=== PATIENT | female | born 1960 | race Caucasian/White ===

== ENCOUNTER → 2017-02-15 | Day surgery (SDC) | payer OTHER ==
[2017-02-08 12:41] VITALS: Ht 160 cm; Wt 135.4 kg
[~2017-02-15] VITALS: Ht 160 cm; Wt 135.4 kg
[~2017-02-15] MED LIST: ALBU18002 INH; ASPCH81X PO; ATOR-54 PO; B-COTAB18 PO; BNC20 PO; CHOL20009 PO; GLC/500 PO; INSDGI SC; KETAMINE HCL INJ 50 MG/ML 10 ML VIAL ONE; LEVO200T6 PO; LIRA18IN SC; MIDAZOLAM HCL 1 MG/ML 2ML VIAL ONE; NVLGIPEN SC; OXGN; PROPOFOL IV EMULSION 10 MG/ML 20 ML VIAL IV ONE; SODIUM CHLORIDE 0.9% 500ML 500 ML IV ONE
--- NOTE | 2017-02-15 10:24 | Endo History and Physical ---
History & Physical Date of Service: Feb 15, 2017. Chief Complaint: Screening Referring Physician: Roopa History of Present Illness Surveillance, polyps on prior exam. Past Medical History Diabetes, Arthritis, Reflux, High Cholesterol, Sleep Apnea, COPD, Thyroid Disease Past Surgical History Hx Cardiac Surgery: No Hx Internal Defibrillator: No Hx Pacemaker: No Hx Abdominal Surgery: Yes (TUBAL LIGATION, PARTIAL HYSTER) Hx of Implantable Prosthesis: No Hx Post-Op Nausea and Vomiting: No Hx Cancer Surgery: No Hx Thoracic Surgery: No Hx Orthopedic: No Hx Urinary Tract Surgery: No Family History Colon CA Social History Smoking Status: Current Every Day Smoker Hx Substance Use: No Hx Alcohol Use: No Allergies Coded Allergies: Cephalosporins (Verified Allergy, Mild, TROUBLE BREATHING, 02/08/17) Penicillins (Verified Allergy, Mild, TROUBLE BREATHING, 02/08/17) Amoxicillin (Verified Allergy, Unknown, HIVES/SWELLING, 02/08/17) Erythromycin (Verified Allergy, Unknown, TROUBLE BREATHING, 02/08/17) Adhesives (Verified Adverse Reaction, Unknown, WELTS AND BURNING, 02/08/17 ) Meloxicam (Verified Adverse Reaction, Unknown, STOMACH UPSET, 02/08/17) Current Medications Reported Home Medications Medications Dose Route/Sig Max Daily Dose Days Date Category Dose Instructions Aspirin Chewable (Aspirin) 81 Mg Chew 81 Mg PO HS 02/08/17 Reported Vitamin B Complex (B-Complex Vitamins) 1 Tab Tab 1 Tab PO QAM 02/08/17 Reported Vitamin D (Cholecalciferol) 2,000 Unit Tab 1 Tab PO QAM 02/08/17 Reported Lantus (Insulin Glargine) 100 Unit/Ml Inj 68 Units SC QPM 02/08/17 Reported Proair Respiclick (Albuterol Sulfate) 108 Mcg/Act Aer 1 Puff INH QID 02/08/17 Reported Novolog Flexpen (Insulin Aspart) 100 Units/Ml Inj 1 Dose SC QID 02/08/17 Reported PER SLIDING SCALE Glucophage (Metformin Hcl) 500 Mg Tab 4 Tab PO QAM 02/08/17 Reported Benicar (Olmesartan Medoxomil) 20 Mg Tab 10 Mg PO QAM 02/08/17 Reported Victoza (Liraglutide) 18 Mg/3 Ml Inj 1.8 Mg SC QAM 02/08/17 Reported Lipitor (Atorvastatin) 20 Mg Tab 20 Mg PO HS 05/19/14 Reported Levothyroxine Sodium 200 Mcg Tab 200 Mcg PO QAM 05/19/14 Reported Oxygen Gas 2 Liters NA UD 02/24/11 Reported when sleeping Vital Signs Weight (Kilograms): 135.45 Height (Feet): 5 Height (Inches): 3 Date Time Temp Pulse Resp B/P (MAP) Pulse Ox O2 Delivery O2 Flow Rate FiO2 02/15/17 09:53 36.7 80 20 121/66 (84) 94 Room Air Physical Exam General Appearance: no apparent distress Respiratory/Chest: Auscultation: breath sounds normal Cardiovascular: Heart Auscultation: RRR Abdomen: Inspection & Palpation: soft Assessment and Plan H/o polyps - cscopy
--- NOTE | 2017-02-15 11:00 | Discharge Instructions ---
Endoscopy Patient Instructions Date / Procedure(s) Performed Feb 15, 2017. Colonoscopy Allergy Information Coded Allergies: Cephalosporins (Verified Allergy, Mild, TROUBLE BREATHING, 02/08/17) Penicillins (Verified Allergy, Mild, TROUBLE BREATHING, 02/08/17) Amoxicillin (Verified Allergy, Unknown, HIVES/SWELLING, 02/08/17) Erythromycin (Verified Allergy, Unknown, TROUBLE BREATHING, 02/08/17) Adhesives (Verified Adverse Reaction, Unknown, WELTS AND BURNING, 02/08/17 ) Meloxicam (Verified Adverse Reaction, Unknown, STOMACH UPSET, 02/08/17) Discharge Date / Findings Feb 15, 2017. Unable to complete colonoscopy due to poor prep Medication Instructions Stopped Medication(s): Metformin, insulin, ASA Provider Instructions Activity Restrictions - No exercising or heavy lifting for 24 hours. - Do not drink alcohol the day of the procedure. - Do not drive a car or operate machinery until the day after the procedure. - Do not make any important decisions or sign important papers in 24 hours after the procedure. Following Day: - Return to full activity which may include returning to work/school. Diet Start your diet with liquids and light foods (jello, soup, juice, toast). Then eat your usual diet if not nauseated. Treatment For Common After Affects For mild abdominal pain, bloating, or excessive gas: - Rest - Eat lightly - Lie on right side Follow-Up Information Follow-up with Roopa as scheduled Anesthesia Information What You Should Know You have had a procedure that required some medicine to reduce anxiety and discomfort. This treatment is called moderate sedation. After receiving the treatment, you may be sleepy, but you will be able to breathe on your own. The effects of the treatment may last for several hours. Follow these instructions along with Activity/Diet recommendations noted above: * Do NOT do anything where dizziness or clumsiness would be dangerous. * Rest quietly at home today, then you can be up and about tomorrow. * Have a responsible person stay with you the rest of today. * You may have had an I.V. today. If so, you may take the dressing off later today. Recommendations Call your doctor if: * Trouble breathing * Continuous vomiting for more than 24 hours * Temperature above 101 degrees * Severe abdominal pain or bloating * Pain not relieved by pain medicine ordered * There is increased drainage or redness from any incision * A large amount of rectal bleeding greater than 2-3 tablespoons. (If you had a polyp/s removed or have hemorrhoids, a small amount of blood - from the rectum is to be expected.) * You have any unanswered questions or concerns. IN THE EVENT OF A SERIOUS EMERGENCY, GO TO THE NEAREST EMERGENCY ROOM Your discharge instructions were prepared by provider Mary Samayoa. Patient Instructions Signature Page Mariel Palmer Patient (or Guardian) Signature/Date: I have read and understand the instructions given to me by my caregivers. Caregiver/RN/Doctor Signature/Date: The above-named patient and/or guardian has received patient instructions on this date. + Original Patient Signature Page (only) stays with chart. Please make copy for patient.
[2017-02-15 11:16] VITALS: BP 125/74; PULSE 71; O2SAT 93
--- NOTE | 2017-02-15 12:05 | Anesthesiology Progress Note ---
Anesthesia Post Op Note Date & Time Feb 15, 2017 at 12:05 Vital Signs Pain Intensity: 0 Vital Signs Past 12 Hours Date Time Temp Pulse Resp B/P (MAP) Pulse Ox O2 Delivery O2 Flow Rate FiO2 02/15/17 11:16 71 20 125/74 (91) 93 Room Air 02/15/17 11:01 76 20 119/74 (89) 93 Room Air 02/15/17 10:46 76 20 100/59 (73) 92 Room Air 02/15/17 09:53 36.7 80 20 121/66 (84) 94 Room Air Notes Mental Status: alert / awake / arousable, participated in evaluation Pt Amnestic to Procedure: Yes Nausea / Vomiting: adequately controlled Pain: adequately controlled Airway Patency, RR, SpO2: stable & adequate BP & HR: stable & adequate Hydration State: stable & adequate Anesthetic Complications: no major complications apparent
--- NOTE | 2017-02-15 14:56 | GI REPORT ---
Procedure Date: 02/15/2017 10:17 AM Procedure: Colonoscopy Indications: High risk colon cancer surveillance: Personal history of colonic polyps Medicines: See the Anesthesia note for documentation of the administered medications Complications: No immediate complications. Estimated Blood Loss: Estimated blood loss: none. Procedure: Pre-Anesthesia Assessment: - ASA Grade Assessment: III - A patient with severe systemic disease. After I obtained informed consent, the scope was passed under direct vision. Throughout the procedure, the patient's blood pressure, pulse, and oxygen saturations were monitored continuously. The scope was introduced through the anus with the intention of advancing to the cecum. The scope was advanced to the rectum before the procedure was aborted. Medications were given. The quality of the bowel preparation was inadequate. Findings: The perianal and digital rectal examinations were normal. There was solid stool in the rectum, as well as a large amount of thick liquid viscous stool coating the wall that could not be cleared. Ptocedure aborted. Impression: - Preparation of the colon was inadequate. Procedure aborted. - No specimens collected. Recommendation: - Discharge patient to home. Pt had two day prep prior to this procedure - discussed options with pt, she wishes to pursue repeat attempt at cscopy in 6 months. Mary Sullivan M.D. Mary Sullivan MD 02/15/2017 2:56:04 PM This report has been signed electronically. Note Initiated On: 02/15/2017 10:17 AM I attest to the content of the Intraoperative Record and orders documented therein, exceptions below
== END | disposition home or self-care (01) ==
LOC: C.GI 08:59
PROVIDERS: ATTEND Internal Medicine Gastroenterology
DX: Z12.11 Encounter for screening for malignant neoplasm of colon (principal); Z86.010 Personal history of colon polyps; Z80.0 Family history of malignant neoplasm of digestive organs; E78.00 Pure hypercholesterolemia, unspecified; E11.9 Type 2 diabetes mellitus without complications; G47.30 Sleep apnea, unspecified; J44.9 Chronic obstructive pulmonary disease, unspecified; K21.9 Gastro-esophageal reflux disease without esophagitis; E07.9 Disorder of thyroid, unspecified; M19.90 Unspecified osteoarthritis, unspecified site; F17.200 Nicotine dependence, unspecified, uncomplicated; Z79.4 Long term (current) use of insulin; Z79.82 Long term (current) use of aspirin; Z79.899 Other long term (current) drug therapy

== ENCOUNTER 2020-12-23 16:38 | Observation (INO) ==
--- NOTE | 2020-12-23 18:01 | Emergency Department Note ---
Impression & Plan UGIB (upper gastrointestinal bleed), Anemia, Edema, peripheral ED Provider Note Called herNAME: DENZEL FRANCO AGE: 60 SEX: F : 1960 ARRIVES VIA: Walk-In INFORMANT: Patient, ED PROVIDER(S): Rickie Alfonso DO CHIEF COMPLAINT: Swelling in the legs HPI: The patient is a 60-year-old female who presented to the emergency depa rtment for an evaluation of leg swelling. The patient started noticing leg swelling many weeks ago. She does have a history of a recently diagnosed DVT in her left leg. She currently takes Coumadin. The patient denies having any fever. She does have mild erythema especially to the right leg. She has had no abdominal pain or diarrhea. She has noticed no black or bloody bowel movements. She also has been noticing more of a cough lately. She notices wheezing. She does have a history of COPD and thought it was from her COPD. She notices no hemoptysis. She does not have any chest pain. She has noticed more dyspnea on exertion however. Patient went to see her primary care physician and had outpatient labs drawn which included a D-dimer. The D-dimer is elevated so she was sent to the emergency department. ROS: See above HPI for pertinent positives & negatives. A total of 10 systems reviewed and were otherwise negative. PAST MEDICAL HISTORY: See Below PAST SURGICAL HISTORY: See Below FAMILY HISTORY: See Below SOCIAL HISTORY: See Below HOME MEDICATIONS: See Below ALLERGIES: See Below VITALS: See Below PHYSICAL EXAMINATION: GENERAL: Patient is awake alert in no acute distress patient is resting comfortably and showing no signs of anxiety EYES: The conjunctivae are clear. The pupils are round and reactive. EARS, NOSE, MOUTH AND THROAT: The nose is without any evidence of any deformity. Mucous membranes are moist. Tongue is midline. NECK: The neck is nontender and supple. RESPIRATORY: Diminished breath sounds are noted throughout. There were scattered rhonchi. There is no conversational dyspnea. CARDIOVASCULAR: Tachycardic rate with regular rhythm was noted. There was no definite murmur. GASTROINTESTINAL: The abdomen is soft. Abdomen is nontender. MUSCULOSKELETAL/EXTREMITIES: There is no evidence of gross deformity full range of motion is noted in the hips and shoulders. SKIN: Pedal edema was noted bilaterally. Chronic venous skin changes were noted. There is mild erythema to the anterior right leg. NEUROLOGIC: Patient is awake alert and oriented x3 MEDICAL DECISION MAKING: The patient is a 60-year-old female who presented to the emergency department at the request of her primary care physician for an evaluation of lower extremity edema. The patient had bilateral lower extremity edema. She does have a history of a DVT in her left leg. The patient's primary care physician ordered a D-dimer which was positive. For this reason she was sent to the emergency department for further evaluation. The patient did have bilateral lower extremity swelling. I discussed the patient's laboratory and radiographic studies with her. She was found to have anemia. She was also found to have heme positive stool on rectal exam. I do feel the patient's exertional dyspnea as well as her lower extremity edema is likely secondary to the anemia from the GI bleeding. The patient had a type and screen. [facility] have agreed to evaluate the patient in the emergency department for further management and disposition. Triage Nursing notes reviewed. Prior medical records reviewed Vital Signs: reviewed and remarkable for tachycardia and tachypnea. Differential diagnosis: Reactive airway disease, pneumonia, pneumothorax, COPD, CHF, infections, cardiac ischemia, pulmonary embolism, musculoskeletal, gastrointestinal, as well as other pathologies. ER treatment provided: See below Diagnostics interpreted by me: ECG: EKG was obtained in the emergency department. My interpretation is sinus tachycardia 101 bpm. Low voltage was noted throughout. Poor R wave progression was noted. Nonspecific ST segment abnormalities were noted. This was compared to a tracing from May 192018. No significant changes were noted. Cardiac Monitoring: An order was placed for continuous cardiac monitoring. The monitor shows a rate of 98 bpm with sinus rhythm. Laboratory studies: As stated above and show below. Imaging studies: See below Consultation(s): I discussed this case with Dr. Alonzo who [facility] will evaluate the patient in the emergency department. Past Med/Surg History Medical History (Updated 12/23/20 @ 22:55 by Rickie Alfonso DO) Anxiety Asthma rare use PRN inh COPD (chronic obstructive pulmonary disease) inhaler daily/prn Depression Diabetes mellitus, type 2 IDDM Herniated disc Hiatal hernia Hypothyroidism Migraine Non-alcoholic cirrhosis Follows with [facility] On home oxygen therapy 2.5L via CPAP at night Sleep apnea CPAP with 2.5L Surgical History History of colonoscopy with polypectomy History of liver biopsy 12/2018 History of partial hysterectomy History of right breast biopsy benign History of tooth extraction most teeth removed Hx of tonsillectomy Hx of tubal ligation Family History Father Family history of diabetes mellitus Grandmother (Paternal) Family history of diabetes mellitus Son Family history of diabetes mellitus Other Cancer Heart disease Hypertension Lung disease No family history of adverse response to anesthesia Social History Smoking Status: Current every day smoker Tobacco Type: Cigarettes Cigarettes Per Day: 2; Second Hand Exposure: No; Tobacco Cessation Education Requested by Patient: No Hx Alcohol Use: No Hx Substance Use: No Preferred Language: Vietnamese Communication Ability: Effective Padder Required: No Beliefs That Will Affect Care: None marital status: Current Living Situation: Family Current Living Situation Comment: son lives with pt current occupational status: disabled Feels Safe at Home: Yes Safety Concerns: Feels Safe At This Time Assistive Devices: Cane, Denture - Upper and Glasses Allergies Allergies Allergy/AdvReac Type Severity Reaction Status Date / Time Cephalosporins Allergy Mild TROUBLE Verified 12/23/20 22:19 BREATHING Penicillins Allergy Mild TROUBLE Verified 12/23/20 22:19 BREATHING amoxicillin Allergy Unknown HIVES/SWELL Verified 12/23/20 22:19 ING erythromycin base Allergy Unknown TROUBLE Verified 12/23/20 22:19 BREATHING adhesive AdvReac Unknown WELTS AND Verified 12/23/20 22:19 BURNING meloxicam AdvReac Unknown STOMACH Verified 12/23/20 22:19 UPSET Home Meds Home Medications Medication Instructions Recorded Confirmed albuterol sulfate 90 mcg/actuation 2 puff INHALATION Q6H PRN 05/19/18 01/13/20 aerosol inhaler (Ventolin HFA) aspirin 81 mg chewable tablet 81 mg PO HS 05/19/18 01/13/20 (Aspirin Childrens) cholecalciferol (vitamin D3) 50 2,000 unit PO QAM 05/19/18 01/13/20 mcg (2,000 unit) tablet insulin aspart U-100 100 unit/mL 1 dose SUBCUT TID 05/19/18 01/13/20 (3 mL) subcutaneous pen (Novolog Flexpen U-100 Insulin aspart) insulin glargine 100 unit/mL (3 60 - 68 unit SUBCUT HS 05/19/18 01/13/20 mL) subcutaneous pen (Lantus Solostar U-100 Insulin) liraglutide 0.6 mg/0.1 mL (18 mg/3 1.8 mg SUBCUT QAM 05/19/18 01/13/20 mL) subcutaneous pen injector (Synedgentoza 2-Chandler) metformin 500 mg tablet,extended 1,000 mg PO QAM 05/19/18 01/13/20 release 24 hr umeclidinium 62.5 mcg-vilanterol 1 inh INHALATION QAM 05/19/18 01/13/20 25 mcg/actuation powdr for inhalation (Anoro Ellipta) levothyroxine 175 mcg tablet 175 mcg PO QAM 12/18/18 01/13/20 Vitamin B Complex 1 ml PO QAM 02/04/19 01/13/20 guaifenesin 600 mg tablet, 600 - 1,200 mg PO DAILY PRN 02/04/19 01/13/20 extended release 12 hr (Mucinex) ketoconazole 2 % shampoo 2 % TOPICAL 3XWK 02/04/19 01/13/20 nystatin 100,000 unit/gram topical 1 applic TOPICAL TID PRN 02/04/19 01/13/20 powder olmesartan 20 mg tablet 10 mg PO QAM 02/04/19 01/13/20 aspirin-caffeine 500 mg-32.5 mg 1 tab PO DAILY PRN 12/25/19 01/13/20 tablet (Back and Body Pain Reliever) fluticasone furoate 100 1 inh INHALATION QAM 12/25/19 01/13/20 mcg/actuation blister powder for inhalation (Arnuity Ellipta) prednisone 20 mg tablet 20 mg PO .DAILY X 5 DAYS 12/23/20 12/23/20 Previous Rx's Medication Instructions Recorded oxycodone-acetaminophen 5 mg-325 1 tab PO Q6H PRN #14 tab 01/13/20 mg tablet (Percocet) Results & Data (ED) Vital Signs Vital Signs - 24 hr 12/23/20 16:43 12/23/20 16:46 12/23/20 18:05 Temperature 36.8 C 36 C L Temperature Source Temporal Artery Scan Temporal Artery Scan Pulse Rate 103 H 101 H Pulse Rate [Apical] 99 H Respiratory Rate 20 20 16 Respiratory Effort / Characteristics Non-Labored Spontaneous Non-Labored Spontaneous Respiratory Depth Normal Normal Blood Pressure 110/51 L 110/51 L Blood Pressure [Right Arm] 125/45 L Blood Pressure Mean 70 70 Blood Pressure Mean [Right Arm] 71 Blood Pressure Position Sitting Sitting Blood Pressure Position [Right Arm] Sitting Pulse Oximetry 97 98 96 Oxygen Delivery Method Room Air Room Air Room Air Sepsis Recent Fever Within 48 Hours No No Sepsis New/Unexplained Change in Mental Status N/A N/A Sepsis Action Taken by Nursing No Action Required No Action Required 12/23/20 22:09 Temperature 37.0 C Temperature Source Oral Pulse Rate Pulse Rate [Apical] 98 H Respiratory Rate 25 H Respiratory Effort / Characteristics Respiratory Depth Blood Pressure Blood Pressure [Right Arm] 120/52 L Blood Pressure Mean Blood Pressure Mean [Right Arm] 74 Blood Pressure Position Blood Pressure Position [Right Arm] Pulse Oximetry 96 Oxygen Delivery Method Room Air Sepsis Recent Fever Within 48 Hours Sepsis New/Unexplained Change in Mental Status Sepsis Action Taken by Skilled Nursing Medications Current Medication List: was personally reviewed by me Laboratory Data Attestation: I reviewed the patient's lab results. Result diagrams: 12/23/20 18:04 12/23/20 18:04 Lab Results 12/23/20 12/23/20 12/23/20 Range/Units 18:04 18:04 18:04 WBC 6.64 (4.8-10.8) K/uL RBC 3.00 L (4.2-5.4) M/uL Hgb 8.2 L (12.0-16.0) g/dL Hct 26.2 L (37-47) % MCV 87.3 (80-100) fL MCH 27.3 (25-34) pg MCHC 31.3 L (32-36) g/dL RDW Std Deviation 54.3 H (36.4-46.3) fL RDW Coeff of Tegan 17.1 H (11.5-14.5) % Plt Count 163 (130-400) K/uL MPV 10.2 (7.4-10.4) fL Immature Gran % (Auto) 0.3 % Neut % (Auto) 75.4 % Lymph % (Auto) 18.2 % Roberts % (Auto) 5.0 % Eos % (Auto) 0.6 % Baso % (Auto) 0.5 % Neut # (Auto) 5.01 (1.4-6.5) K/uL Lymph # (Auto) 1.21 (1.2-3.4) K/uL Roberts # (Auto) 0.33 (0.11-0.59) K/uL Eos # (Auto) 0.04 (0-0.5) K/uL Baso # (Auto) 0.03 (0-0.2) K/uL Immature Gran # (Auto) 0.02 (0.00-0.02) K/uL PT 23.4 H (9.0-12.0) Seconds INR 2.5 H (0.9-1.1) APTT 44.7 H (21.0-31.0) Seconds PTT Ratio 1.7 Sodium 138 (136-145) mmol/L Potassium 4.4 (3.5-5.1) mmol/L Chloride 108 H (98-107) mmol/L Carbon Dioxide 22 (21-32) mmol/L Anion Gap 8.0 (3-11) BUN 12 (7-18) mg/dl Creatinine 1.00 (0.6-1.2) mg/dl Est Cr Clr Drug Dosing Not Reportable Est GFR ( Amer) 69.9 ml/min Est GFR (Non-Af Amer) 60.3 ml/min BUN/Creatinine Ratio 11.9 (10-20) Glucose 116 H (70-99) mg/dl Calcium 9.4 (8.5-10.1) mg/dl Magnesium 1.7 L (1.8-2.4) mg/dl Total Bilirubin 1.0 (0.2-1) mg/dl AST 61 H (15-37) U/L ALT 45 (12-78) U/L Alkaline Phosphatase 172 H (45-117) U/L Troponin I < 0.015 (0-0.045) ng/ml NT-Pro-B Natriuret Pep 101 (0-900) pg/ml Total Protein 7.1 (6.4-8.2) gm/dl Albumin 2.6 L (3.4-5.0) gm/dl Globulin 4.5 H (2.5-4.0) gm/dl Albumin/Globulin Ratio 0.6 L (0.9-2) TSH 1.150 (0.300-4.500) uIu/ml COVID-19 Eval Order 12/23/20 Range/Units 21:46 WBC (4.8-10.8) K/uL RBC (4.2-5.4) M/uL Hgb (12.0-16.0) g/dL Hct (37-47) % MCV (80-100) fL MCH (25-34) pg MCHC (32-36) g/dL RDW Std Deviation (36.4-46.3) fL RDW Coeff of Tegan (11.5-14.5) % Plt Count (130-400) K/uL MPV (7.4-10.4) fL Immature Gran % (Auto) % Neut % (Auto) % Lymph % (Auto) % Roberts % (Auto) % Eos % (Auto) % Baso % (Auto) % Neut # (Auto) (1.4-6.5) K/uL Lymph # (Auto) (1.2-3.4) K/uL Roberts # (Auto) (0.11-0.59) K/uL Eos # (Auto) (0-0.5) K/uL Baso # (Auto) (0-0.2) K/uL Immature Gran # (Auto) (0.00-0.02) K/uL PT (9.0-12.0) Seconds INR (0.9-1.1) APTT (21.0-31.0) Seconds PTT Ratio Sodium (136-145) mmol/L Potassium (3.5-5.1) mmol/L Chloride (98-107) mmol/L Carbon Dioxide (21-32) mmol/L Anion Gap (3-11) BUN (7-18) mg/dl Creatinine (0.6-1.2) mg/dl Est Cr Clr Drug Dosing Est GFR ( Amer) ml/min Est GFR (Non-Af Amer) ml/min BUN/Creatinine Ratio (10-20) Glucose (70-99) mg/dl Calcium (8.5-10.1) mg/dl Magnesium (1.8-2.4) mg/dl Total Bilirubin (0.2-1) mg/dl AST (15-37) U/L ALT (12-78) U/L Alkaline Phosphatase (45-117) U/L Troponin I (0-0.045) ng/ml NT-Pro-B Natriuret Pep (0-900) pg/ml Total Protein (6.4-8.2) gm/dl Albumin (3.4-5.0) gm/dl Globulin (2.5-4.0) gm/dl Albumin/Globulin Ratio (0.9-2) TSH (0.300-4.500) uIu/ml COVID-19 Eval Order Covid19 at [facility] Administered Medications Discontinued Medications Pantoprazole Sodium 40 mg/ (Syringe) 10 mls @ 5 mls/min IV NOW ONE Stop: 12/23/20 21:31 Last Admin: 12/23/20 22:04 Dose: 5 mls/min Documented by: [id number] Famotidine (Pepcid 20mg Iv Push) 20 mg in 5 mls @ 2.5 mls/min IV NOW STA Stop: 12/23/20 21:31 Last Admin: 12/23/20 22:04 Dose: 2.5 mls/min Documented by: [id number] Imaging Data Radiologist's Impression: Venous Doppler Study 12/23/20 17:37 BILATERAL LOWER EXTREMITY VENOUS DOPPLER HISTORY: Bilateral lower extremity swelling. dvt COMPARISON STUDY: None. FINDINGS: There is normal compressibility, flow, and augmentation within the bilateral lower extremity deep venous systems. IMPRESSION: No DVT within the right or left lower extremity. ACT 112: Negative or not required by law. Electronically signed by: Willem Dubose M.D. 12/23/2020 8:45 PM Chest X-Ray 12/23/20 17:43 XR chest 1V portable HISTORY: Shortness of breath. swelling COMPARISON: Chest 05/19/2018. FINDINGS: No pneumothorax. Trace bilateral pleural effusions. The heart is mildly enlarged. There is diffuse interstitial and vascular thickening suggestive of mild congestive change. This is similar to the prior study. No new focal lung consolidations to suggest pneumonia. IMPRESSION: 1. Cardiomegaly with mild congestive change. 2. Trace bilateral pleural effusions. ACT 112: Negative or not required by law. Electronically signed by: Willem Dubose M.D. 12/23/2020 6:28 PM Discharge Plan Visit Data Chief Complaint: Swelling/Edema to Extremity Stated Complaint: leg swelling, ref by ED Provider: Rickie Alfonso ED Midlevel Provider: Bakari Sifuentes I. Discharge Problem: UGIB (upper gastrointestinal bleed), Anemia, Edema, peripheral Patient Disposition: Being Evaluated by Hospitalist Forms Stand Alone Forms: My [facility] [employer] Prescriptions Prescriptions: No Action aspirin [Aspirin Childrens] 81 mg Tablet,Chewable 81 mg PO HS RF: 0 albuterol sulfate [Ventolin HFA] 90 mcg/actuation Hfa Aerosol Inhaler 2 puff INHALATION Q6H PRN (Reason: Shortness Of Breath) RF: 0 metformin 500 mg Tablet Extended Release 24 Hr 1,000 mg PO QAM RF: 0 insulin aspart U-100 [Novolog Flexpen U-100 Insulin] 100 unit/mL Insulin Pen 1 dose SUBCUT TID RF: 0 Lantus Solostar U-100 Insulin 100 unit/mL (3 mL) Insulin Pen 60 - 68 unit SUBCUT HS RF: 0 cholecalciferol (vitamin D3) 2,000 unit Tablet 2,000 unit PO QAM RF: 0 Victoza 2-Chandler 0.6 mg/0.1 mL (18 mg/3 mL) Pen Injector 1.8 mg SUBCUT QAM RF: 0 Anoro Ellipta 62.5-25 mcg/actuation Blister With Device 1 inh Inhalation QAM RF: 0 levothyroxine 175 mcg Tablet 175 mcg PO QAM RF: 0 olmesartan 20 mg Tablet 10 mg PO QAM RF: 0 ketoconazole 2 % Shampoo 2 % TOPICAL 3XWK RF: 0 nystatin 100,000 unit/gram Powder 1 applic TOPICAL TID PRN (Reason: Rash) RF: 0 guaifenesin [Mucinex] 600 mg Tablet Extended Release 12hr 600 - 1,200 mg PO DAILY PRN (Reason: Congestion) RF: 0 Vitamin B Complex 1 ml PO QAM RF: 0 Arnuity Ellipta 100 mcg/actuation Blister With Device 1 inh INHALATION QAM RF: 0 Back and Body Pain Reliever 500-32.5 mg Tablet 1 tab PO DAILY PRN (Reason: Pain) RF: 0 oxycodone-acetaminophen [Percocet] 5-325 mg tablet 1 tab PO Q6H PRN (Reason: pain) Qty: 14 RF: 0 prednisone 20 mg tablet 20 mg PO .DAILY X 5 DAYS RF: 0 Referrals Referrals: Hilda Blas MD [Primary Care Provider] -
--- NOTE | 2020-12-23 18:13 | Emergency Department Note ---
ED Visit Note I have seen and evaluated the patient. I have discussed the case with Dr. Alfonso and agree with his plan as documented. Bakari Sifuentes MD PGY-3 . Resident Activity Tracking Resident Involvement: Resident Care Provided Care Provided: Adult ED
--- NOTE | 2020-12-23 18:29 | XRay Report ---
XR chest 1V portable HISTORY: Shortness of breath. swelling COMPARISON: Chest 05/19/2018. FINDINGS: No pneumothorax. Trace bilateral pleural effusions. The heart is mildly enlarged. There is diffuse interstitial and vascular thickening suggestive of mild congestive change. This is similar to the prior study. No new focal lung consolidations to suggest pneumonia. IMPRESSION: 1. Cardiomegaly with mild congestive change. 2. Trace bilateral pleural effusions. ACT 112: Negative or not required by law. Electronically signed by: Willem Dubose M.D. 12/23/2020 6:28 PM
[2020-12-23 18:55] LABS: Alanine Aminotransferase 45 U/L (12-78); Albumin Level 2.6 gm/dl (3.4-5.0); BUN Creatinine Ratio 11.9 (10-20); Blood Urea Nitrogen 12 mg/dl (7-18); Calcium 9.4 mg/dl (8.5-10.1); Carbon Dioxide 22 mmol/L (21-32); Chloride 108 mmol/L (98-107); Est GFR (African American) 69.9 ml/min; Est GFR (Non-African American) 60.3 ml/min; Glucose 116 mg/dl (70-99); Potassium 4.4 mmol/L (3.5-5.1); Sodium 138 mmol/L (136-145)
[2020-12-23 19:00] LABS: Albumin Globulin Ratio 0.6 (0.9-2); Alkaline Phosphatase 172 U/L (45-117); Aspartate Aminotransferase 61 U/L (15-37); Globulin 4.5 gm/dl (2.5-4.0); NT Pro B Type Natriuretic Pept 101 pg/ml (0-900); Total Protein 7.1 gm/dl (6.4-8.2); Troponin I < 0.015 ng/ml (0-0.045)
[2020-12-23 19:01] LABS: INR 2.5 (0.9-1.1); Partial Thromboplastin Ratio 1.7; Partial Thromboplastin Time 44.7 Seconds (21.0-31.0); Prothrombin Time 23.4 Seconds (9.0-12.0)
[2020-12-23 19:12] LABS: Basophils # (auto) 0.03 K/uL (0-0.2); Basophils % (auto) 0.5 %; Eosinophils # (auto) 0.04 K/uL (0-0.5); Eosinophils % (auto) 0.6 %; Hematocrit (blood only) 26.2 % (37-47); Hemoglobin 8.2 g/dL (12.0-16.0); Immature Granulocytes # (auto) 0.02 K/uL (0.00-0.02); Immature Granulocytes % (auto) 0.3 %; Lymphocytes # (auto) 1.21 K/uL (1.2-3.4); Lymphocytes % (auto) 18.2 %; Mean Corpuscular Hemoglobin 27.3 pg (25-34); Mean Corpuscular Hgb Conc 31.3 g/dL (32-36); Mean Corpuscular Volume 87.3 fL (80-100); Mean Platelet Volume 10.2 fL (7.4-10.4); Monocytes # (auto) 0.33 K/uL (0.11-0.59); Neutrophils # (auto) 5.01 K/uL (1.4-6.5); Neutrophils % (auto) 75.4 %; Platelet Count 163 K/uL (130-400); RDW Coefficient of Variation 17.1 % (11.5-14.5); RDW Standard Deviation 54.3 fL (36.4-46.3); White Blood Count 6.64 K/uL (4.8-10.8)
--- NOTE | 2020-12-23 20:47 | Ultrasound Report ---
BILATERAL LOWER EXTREMITY VENOUS DOPPLER HISTORY: Bilateral lower extremity swelling. dvt COMPARISON STUDY: None. FINDINGS: There is normal compressibility, flow, and augmentation within the bilateral lower extremit y deep venous systems. IMPRESSION: No DVT within the right or left lower extremity. ACT 112: Negative or not required by law. Electronically signed by: Willem Dubose M.D. 12/23/2020 8:45 PM
[2020-12-23] MEDS ORDERED: PANTOprazole 40 MG in SYRINGE 0 ML IV ONE (21:30)
[2020-12-23] MEDS ORDERED: FAMOTIDINE 20MG IV PUSH 20 MG/5 ML SYR IV STA (21:30)
[2020-12-23] MEDS ORDERED: PHYTONADIONE 10 MG in SODIUM CHLORIDE 0.9% 50 ML IV ONE (22:12)
[2020-12-23 22:32] LABS: Magnesium 1.7 mg/dl (1.8-2.4)
[2020-12-23] MEDS ORDERED: XOPENEX/ATROVENT 1.25mg/0.5MG NEB COMBO NEB STA (22:39)
[2020-12-23] MEDS ORDERED: FUROSEMIDE 40 MG/4 ML VIAL IV STA (22:40)
[2020-12-23] MEDS ORDERED: IPRATROPIUM BROMIDE NEB SOLN 0.02% 2.5 ML VIAL INH STA (22:46)
[2020-12-23] MEDS ORDERED: LEVALBUTEROL 1.25MG/0.5ML NEB INH STA (22:46)
[2020-12-23] MEDS ORDERED: CIPROFLOXACIN / D5W 400 MG/200 ML BAG IV STA (22:51)
--- NOTE | 2020-12-23 23:11 | History & Physical Report ---
Date of Service December 23, 2020 Assessment & Plan (1) UGIB (upper gastrointestinal bleed): Plan: In the setting of Coumadin coagulopathy for chronic LLE DVT found on ultrasound last 07/2020 Differentials include gastritis, PUD, variceal bleed (hx NAFLD cirrhosis/portal hypertension as per records) Anemia secondary to above (Of note, outpatient hemoglobin from October 2020 was noted to be 9.5. Uncertain if outpatient providers were made aware of abnormal blood work.) Bilateral leg swelling. history chronic lymphedema Congestion on x-ray with normal BNP PAN on CPAP Possible right-sided heart failure (Patient currently has issues with her home machine. Last follow-up with sleep medicine February 2018 as per records.) hypertension, stable hx COPD, baseline wheezing on exam DM2 insulin requiring, well-controlled as of recent hemoglobin A1c of 6.18 Jul 2020 ongoing tobacco abuse Medical telemetry Stop Coumadin, Vitamin K 1 dose now IV PPI; consider adding Octreotide for possible variceal bleed if with significant drop in subsequent H&H Ciprofloxacin for SBP prophylaxis for the cirrhotic patient with GI bleed Anemia work-up, follow H&H transfuse PRBC if hemoglobin less than 7 and or for symptomatic anemia GI consult Re: UGI B TTE rule out CHF Re: Fluid retention, leg swelling IV Lasix 1 dose Sleep medicine follow-up on discharge to discuss patient's current CPAP machine problems. Basal insulin adjusted for n.p.o. status, ISS BG goal 1 10-1 40, update hemoglobin A1c DVT prophylaxis. SCDs Re: GI bleed Full code Patient son requesting updates from providers. Mr. Semaj Joyner, contact # [phone]. Text document was generated using [employer] voice recognition software. It may contain grammatical or spelling errors. Kindly contact undersigned for clarification of any documentation item in question. History of Present Illness Chief Complaint: Abnormal blood work, leg swelling Primary Care Provider: Hilda Blas MD History obtained from patient, family, and records. Medical history significant for hypertension, COPD, PAN on CPAP, NAFLD cirrhosis, DM2 insulin requiring, chronic lymphedema, ongoing tobacco abuse, DVT on Coumadin. Last confinement 2012 for CP exacerbation. Patient noted left leg swelling last July 2020. Outpatient venous ultrasound showed chronic DVT within 1 of 2 duplicated mid left femoral veins. Thrombus is located peripherally and vein is patent. CT chest negative for pulmonary embolism. Patient started on Coumadin. Few days ago, patient noted transient dark stools which he attributed to Pepto- Bismol intake. No abdominal pain complaints. No nausea, emesis symptoms. Bilateral leg swelling without unusual weight gain, fever, chills as per patient. Usual cough symptoms from COPD as per patient. Patient denies chest pain, unusual shortness of breath. Compliant with home medications and CPAP although her CPAP machine is not right as per patient. Outpatient D-dimer was noted to be abnormal. Serum BNP within normal limits. Melanotic stool noted to be heme positive at the ER. IV PPI bolus given at the ER. Medical History as above No prior EGDs. 2017 colonoscopy poor preparation Surgical History : Breast lesion excision, BTL, vaginal hysterectomy Family History : Breast cancer, pancreatic cancer, DM, COPD, leukemia, lung cancer, stroke Personal/Social history : Few cigarettes a day, no EtOH intake, disabled Allergies Allergy/AdvReac Type Severity Reaction Status Date / Time Cephalosporins Allergy Mild TROUBLE Verified 12/23/20 22:19 BREATHING ciprofloxacin Allergy Mild itch Verified 12/24/20 04:46 Penicillins Allergy Mild TROUBLE Verified 12/23/20 22:19 BREATHING amoxicillin Allergy Unknown HIVES/SWELL Verified 12/23/20 22:19 ING erythromycin base Allergy Unknown TROUBLE Verified 12/23/20 22:19 BREATHING adhesive AdvReac Unknown WELTS AND Verified 12/23/20 22:19 BURNING meloxicam AdvReac Unknown STOMACH Verified 12/23/20 22:19 UPSET Home Medications Medication Instructions Recorded Confirmed Type albuterol sulfate 90 mcg/actuation 2 puff INHALATION Q6H PRN 05/19/18 12/23/20 History aerosol inhaler (Ventolin HFA) aspirin 81 mg chewable tablet 81 mg PO HS 05/19/18 12/23/20 History (Aspirin Childrens) cholecalciferol (vitamin D3) 50 2,000 unit PO QAM 05/19/18 12/23/20 History mcg (2,000 unit) tablet insulin aspart U-100 100 unit/mL 20 unit SUBCUT TIDM 05/19/18 12/23/20 History (3 mL) subcutaneous pen (Novolog Flexpen U-100 Insulin aspart) insulin glargine 100 unit/mL (3 60 - 68 unit SUBCUT HS 05/19/18 12/23/20 History mL) subcutaneous pen (Lantus Solostar U-100 Insulin) umeclidinium 62.5 mcg-vilanterol 1 inh INHALATION QAM 05/19/18 12/23/20 History 25 mcg/actuation powdr for inhalation (Anoro Ellipta) guaifenesin 600 mg tablet, 600 - 1,200 mg PO DAILY PRN 02/04/19 12/23/20 History extended release 12 hr (Mucinex) ketoconazole 2 % shampoo 2 % TOPICAL 3XWK 02/04/19 12/23/20 History nystatin 100,000 unit/gram topical 1 applic TOPICAL TID PRN 02/04/19 12/23/20 History powder olmesartan 20 mg tablet 10 mg PO QAM 02/04/19 12/23/20 History fluticasone furoate 100 1 inh INHALATION QAM 12/25/19 12/23/20 History mcg/actuation blister powder for inhalation (Arnuity Ellipta) albuterol sulfate 2.5 mg CONTINUOUS NEBULIZATION Q4H 12/23/20 12/23/20 History PRN furosemide 20 mg tablet 20 mg PO DAILY PRN 12/23/20 12/23/20 History gentamicin 0.3 % eye drops 1 drp OPL Q4H 12/23/20 12/23/20 History insulin aspart U-100 100 unit/mL 15 unit SUBCUT .HS SNACK 12/23/20 12/23/20 History (3 mL) subcutaneous pen (Novolog Flexpen U-100 Insulin aspart) ipratropium bromide 0.02 % 2.5 ml CONTINUOUS NEBULIZATION 12/23/20 12/23/20 History solution for inhalation .Q6-8H PRN ketoconazole 2 % topical cream 1 applic TOPICAL DAILY 12/23/20 12/23/20 History levothyroxine 150 mcg tablet 150 mcg PO QAM 12/23/20 12/23/20 History liraglutide 0.6 mg/0.1 mL (18 mg/3 1.8 mg SUBCUT DAILY 12/23/20 12/23/20 History mL) subcutaneous pen injector (Victoza 3-Chandler) metformin 1,000 mg tablet 1,000 mg PO BIDM 12/23/20 12/23/20 History mupirocin 2 % topical ointment 1 applic TOPICAL TID 12/23/20 12/23/20 History prednisone 20 mg tablet 20 mg PO .DAILY X 5 DAYS 12/23/20 12/23/20 History vitamin B complex 1 ea PO DAILY 12/23/20 12/23/20 History warfarin 5 mg tablet (Jantoven) 5 mg PO 5XWK 12/23/20 12/23/20 History warfarin 5 mg tablet (Jantoven) 7.5 mg PO 2XWK 12/23/20 12/23/20 History Past Med/Surg History Medical History (Updated 12/23/20 @ 22:55 by Rickie Alfonso DO) Anxiety Asthma rare use PRN inh COPD (chronic obstructive pulmonary disease) inhaler daily/prn Depression Diabetes mellitus, type 2 IDDM Herniated disc Hiatal hernia Hypothyroidism Migraine Non-alcoholic cirrhosis Follows with [facility] On home oxygen therapy 2.5L via CPAP at night Sleep apnea CPAP with 2.5L Surgical History History of colonoscopy with polypectomy History of liver biopsy 12/2018 History of partial hysterectomy History of right breast biopsy benign History of tooth extraction most teeth removed Hx of tonsillectomy Hx of tubal ligation Family History Father Family history of diabetes mellitus Grandmother (Paternal) Family history of diabetes mellitus Son Family history of diabetes mellitus Other Cancer Heart disease Hypertension Lung disease No family history of adverse response to anesthesia Social History Smoking Status: Current every day smoker Tobacco Type: Cigarettes Cigarettes Per Day: 2; Second Hand Exposure: No; Tobacco Cessation Education Requested by Patient: No Hx Alcohol Use: No Hx Substance Use: No Preferred Language: Korean Communication Ability: Effective Fire Support Specialist Required: No Beliefs That Will Affect Care: None marital status: Current Living Situation: Family Current Living Situation Comment: son lives with pt current occupational status: disabled Feels Safe at Home: Yes Safety Concerns: Feels Safe At This Time Assistive Devices: Cane, Denture - Upper and Glasses Review of Systems Review of Systems: As per HPI, all 10 systems reviewed, all other ROS negative Physical Exam Physical Exam: GENERAL: Slightly uncomfortable, morbidly obese, unkempt, no respiratory distress SKIN: Pallor, warm HEENT: Pale palpebral conjunctivae, no ptosis, dry buccal mucosa NECK : Supple, short neck, no tenderness CHEST : Decreased breath sounds, expiratory wheezes, no tenderness HEART : RRR, no obvious murmurs ABDOMEN: Marked distention, nontender EXTREMITIES : Bilateral LE swelling, no LE tenderness, no other conspicuous deformities noted NEUROLOGIC : Coherent, no facial asymmetry, no other gross focality Results & Data Results & Data ([facility]) Vital Signs (Past 12 Hours) Vital Signs Temp Pulse Pulse Resp BP BP Pulse Ox 12/23/20 22:09 37.0 C 98 H 25 H 120/52 L 96 12/23/20 18:05 99 H 16 125/45 L 96 12/23/20 16:46 36 C L 101 H 20 110/51 L 98 12/23/20 16:43 36.8 C 103 H 20 110/51 L 97 Laboratory Results Laboratory Results WBC 6.64 K/uL (4.8-10.8) 12/23/20 18:04 RBC 3.00 M/uL (4.2-5.4) L 12/23/20 18:04 Hgb 8.2 g/dL (12.0-16.0) L 12/23/20 18:04 Hct 26.2 % (37-47) L 12/23/20 18:04 MCV 87.3 fL (80-100) 12/23/20 18:04 MCH 27.3 pg (25-34) 12/23/20 18:04 MCHC 31.3 g/dL (32-36) L 12/23/20 18:04 RDW Std Deviation 54.3 fL (36.4-46.3) H 12/23/20 18:04 RDW Coeff of Tegan 17.1 % (11.5-14.5) H 12/23/20 18:04 Plt Count 163 K/uL (130-400) 12/23/20 18:04 MPV 10.2 fL (7.4-10.4) 12/23/20 18:04 Immature Gran % (Auto) 0.3 % 12/23/20 18:04 Neut % (Auto) 75.4 % 12/23/20 18:04 Lymph % (Auto) 18.2 % 12/23/20 18:04 [place] % (Auto) 5.0 % 12/23/20 18:04 Eos % (Auto) 0.6 % 12/23/20 18:04 Baso % (Auto) 0.5 % 12/23/20 18:04 Neut # (Auto) 5.01 K/uL (1.4-6.5) 12/23/20 18:04 Lymph # (Auto) 1.21 K/uL (1.2-3.4) 12/23/20 18:04 [place] # (Auto) 0.33 K/uL (0.11-0.59) 12/23/20 18:04 Eos # (Auto) 0.04 K/uL (0-0.5) 12/23/20 18:04 Baso # (Auto) 0.03 K/uL (0-0.2) 12/23/20 18:04 Immature Gran # (Auto) 0.02 K/uL (0.00-0.02) 12/23/20 18:04 PT 23.4 Seconds (9.0-12.0) H 12/23/20 18:04 INR 2.5 (0.9-1.1) H 12/23/20 18:04 APTT 44.7 Seconds (21.0-31.0) H 12/23/20 18:04 PTT Ratio 1.7 12/23/20 18:04 Sodium 138 mmol/L (136-145) 12/23/20 18:04 Potassium 4.4 mmol/L (3.5-5.1) 12/23/20 18:04 Chloride 108 mmol/L (98-107) H 12/23/20 18:04 Carbon Dioxide 22 mmol/L (21-32) 12/23/20 18:04 Anion Gap 8.0 (3-11) 12/23/20 18:04 BUN 12 mg/dl (7-18) 12/23/20 18:04 Creatinine 1.00 mg/dl (0.6-1.2) 12/23/20 18:04 Est Cr Clr Drug Dosing Not Reportable 12/23/20 18:04 Est GFR ( Amer) 69.9 ml/min 12/23/20 18:04 Est GFR (Non-Af Amer) 60.3 ml/min 12/23/20 18:04 BUN/Creatinine Ratio 11.9 (10-20) 12/23/20 18:04 Glucose 116 mg/dl (70-99) H 12/23/20 18:04 Calcium 9.4 mg/dl (8.5-10.1) 12/23/20 18:04 Magnesium 1.7 mg/dl (1.8-2.4) L 12/23/20 18:04 Total Bilirubin 1.0 mg/dl (0.2-1) 12/23/20 18:04 AST 61 U/L (15-37) H 12/23/20 18:04 ALT 45 U/L (12-78) 12/23/20 18:04 Alkaline Phosphatase 172 U/L (45-117) H 12/23/20 18:04 Troponin I < 0.015 ng/ml (0-0.045) 12/23/20 18:04 NT-Pro-B Natriuret Pep 101 pg/ml (0-900) 12/23/20 18:04 Total Protein 7.1 gm/dl (6.4-8.2) 12/23/20 18:04 Albumin 2.6 gm/dl (3.4-5.0) L 12/23/20 18:04 Globulin 4.5 gm/dl (2.5-4.0) H 12/23/20 18:04 Albumin/Globulin Ratio 0.6 (0.9-2) L 12/23/20 18:04 TSH 1.150 uIu/ml (0.300-4.500) 12/23/20 18:04 COVID-19 Eval Order Covid19 at [facility] 12/23/20 21:46 SARS-CoV-2 (PCR) NEGATIVE (Negative) 12/23/20 21:46 Blood Type O Positive 12/23/20 21:50 Antibody Screen NEGATIVE 12/23/20 21:50 Impressions Venous Doppler Study 12/23/20 17:37 BILATERAL LOWER EXTREMITY VENOUS DOPPLER HISTORY: Bilateral lower extremity swelling. dvt COMPARISON STUDY: None. FINDINGS: There is normal compressibility, flow, and augmentation within the bilateral lower extremity deep venous systems. IMPRESSION: No DVT within the right or left lower extremity. ACT 112: Negative or not required by law. Electronically signed by: Willem Dubose M.D. 12/23/2020 8:45 PM Chest X-Ray 12/23/20 17:43 XR chest 1V portable HISTORY: Shortness of breath. swelling COMPARISON: Chest 05/19/2018. FINDINGS: No pneumothorax. Trace bilateral pleural effusions. The heart is mildly enlarged. There is diffuse interstitial and vascular thickening suggestive of mild congestive change. This is similar to the prior study. No new focal lung consolidations to suggest pneumonia. IMPRESSION: 1. Cardiomegaly with mild congestive change. 2. Trace bilateral pleural effusions. ACT 112: Negative or not required by law. Electronically signed by: Willem Dubose M.D. 12/23/2020 6:28 PM Diagnostic Findings EKG as per my interpretation : Rate 105, sinus tachycardia, LAD, LAFB, no ischemia, low voltage Code Status & VTE Plan VTE Prophylaxis Plan VTE Prophylaxis will be ordered: Yes
[2020-12-23 23:33] LABS: Hematocrit (blood only) 23.8 % (37-47); Hemoglobin 7.5 g/dL (12.0-16.0); Reticulocyte % 2.8 % (0.5-2.0); Reticulocytes # 0.08 10^6/uL (0.02-0.10)
[2020-12-23 23:54] LABS: Ferritin 10.3 ng/ml (8-388)
[2020-12-24 00:35] LABS: Folate (Folic Acid) 10.7 ng/ml (>5.38)
[2020-12-24] MEDS ORDERED: LEVALBUTEROL 1.25MG/0.5ML NEB INH PRN (01:44)
[2020-12-24] MEDS ORDERED: GLUCAGON FOR INJ 1 MG VIAL SQ PRN (01:44)
[2020-12-24] MEDS ORDERED: DEXTROSE 50% 50 ML SYRINGE IV PRN (01:44)
[2020-12-24] MEDS ORDERED: XOPENEX/ATROVENT 1.25mg/0.5MG NEB COMBO NEB PRN (01:44)
[2020-12-24] MEDS ORDERED: CARBOHYDRATES FOR HYPOGLYCEMIA PO PRN (01:44)
[2020-12-24] MEDS ORDERED: GLUCOSE 10 TABS/TUBE PO PRN (01:44)
[2020-12-24] MEDS ORDERED: IPRATROPIUM BROMIDE NEB SOLN 0.02% 2.5 ML VIAL INH PRN (01:44)
[2020-12-24] MEDS ORDERED: traMADol HCL 50 MG TABLET PO PRN (01:44)
[2020-12-24] MEDS ORDERED: GLUCOSE 40% GEL 15 GM TUBE PO PRN (01:44)
[2020-12-24] MEDS ORDERED: PROMETHAZINE HCL 12.5 MG in SODIUM CHLORIDE 0.9% 50 ML IV PRN (01:44)
[2020-12-24] MEDS: PANTOprazole 40 MG in DEXTROSE 5% 100 ML IV SCH ×3 (01:52→11:57)
[2020-12-24] MEDS ORDERED: diphenhydrAMINE Capsule 25 MG CAP PO PRN (02:23)
[2020-12-24] MEDS: INSULIN ASPART 100 UNITS/ML 3 ML PEN SC SCH ×3 (02:27→11:44)
[2020-12-24] MEDS: AZTREONAM 2,000 MG in DEXTROSE 5% 100 ML IV SCH ×2 (05:56→12:52)
[2020-12-24] MEDS: GENTAMICIN SULFATE 0.3% OP SOLN 5 ML BTL OPL SCH ×3 (05:59→11:01)
[2020-12-24] MEDS ORDERED: LEVOTHYROXINE SODIUM 150 MCG TABLET PO SCH (06:30)
[2020-12-24 07:26] LABS: Basophils # (auto) 0.04 K/uL (0-0.2); Basophils % (auto) 0.6 %; Eosinophils # (auto) 0.22 K/uL (0-0.5); Eosinophils % (auto) 3.2 %; Hematocrit (blood only) 23.7 % (37-47); Hemoglobin 7.6 g/dL (12.0-16.0); Immature Granulocytes # (auto) 0.02 K/uL (0.00-0.02); Immature Granulocytes % (auto) 0.3 %; Lymphocytes # (auto) 2.17 K/uL (1.2-3.4); Lymphocytes % (auto) 32.1 %; Mean Corpuscular Hemoglobin 27.2 pg (25-34); Mean Corpuscular Hgb Conc 32.1 g/dL (32-36); Mean Corpuscular Volume 84.9 fL (80-100); Monocytes # (auto) 0.57 K/uL (0.11-0.59); Monocytes % (auto) 8.4 %; Neutrophils # (auto) 3.75 K/uL (1.4-6.5); Neutrophils % (auto) 55.4 %; Platelet Count 152 K/uL (130-400); RDW Standard Deviation 52.4 fL (36.4-46.3); Red Blood Count 2.79 M/uL (4.2-5.4); White Blood Count 6.77 K/uL (4.8-10.8)
[2020-12-24 07:34] LABS: Estimated Average Glucose 117 mg/dl; Hemoglobin A1C 5.7 % (4.5-5.6)
--- NOTE | 2020-12-24 07:37 | Gastrointestinal Consultation ---
Date of Consultation December 24, 2020 Assessment & Plan (1) Anemia: Occult stool (+) but no gross GI bleeding - one back formed BM last week likely secondary to Pepto Bismol use. Hemodynamically stable. Doubt significant GI Bleed. Hb is lower than her baseline of 9.45 in October (today 7.6) but not symptomatic and no current gross GI bleeding. Pt wishes for discharge which is reasonable. Will plan for short interval OP EGD. Pt agreeable to this plan. Our office will contact her to arrange. No GI contraindication to DC. OP GI f/u with Dr. Colorado for management of cirrhosis is arranged for 03/11/21 - pt to call sooner if continued lower leg edema. No DVTs on today's US would hold coumadin until EGD if possible - will defer to primary services. Supervising Physician Co-Signing Physician Notes Attending attestation Late entry, patient was seen on date of [employer] provider: I have seen, examined this patient, and agree with the findings and above by our mid-level provider JONATHAN Mcmahan, with the following additions - no signs of GI bleeding History of Present Illness Reason for Consultation: UGI bleed Requesting Physician: Dr. Barnhart Attending Physician: Joyce Barnhart MD History of Present Illness Ms. Mariel Palmer is a 60 yr old female pt of Dr. Blas with a hx of HTN, COPD, current smoker, PAN on CPAP, NAFLD cirrhosis, DM2 insulin requiring, chronic lymphedema, DVT (July 2020) on Coumadin. She presented to her PCP yesterday for leg edema. D Dimer was elevated and she was directed to present to the ED. On arrival, Hb was 8.2, down from 9.5 in mid October. After hydratoin, Hb was 7.8. She reports having passed on black formed BM last week, afer a dose of Pepto Bismol but denies other blood in BMs, black or red BMs, nausea, vomiting or abdominal pain. Regarding her hx of cirrhosis, she follows with Dr. Wandy Colorado. Most recent imaging in October with cirrhosis and portal HTN. Due to weight and respiratory issues, she has not undergone EGD, though agrees to undergo EGD as an OP. She feels well and asks to go home. She has not had a BM since arrival. Allergies Allergy/AdvReac Type Severity Reaction Status Date / Time Cephalosporins Allergy Mild TROUBLE Verified 12/23/20 22:19 BREATHING ciprofloxacin Allergy Mild itch Verified 12/24/20 04:46 Penicillins Allergy Mild TROUBLE Verified 12/23/20 22:19 BREATHING amoxicillin Allergy Unknown HIVES/SWELL Verified 12/23/20 22:19 ING erythromycin base Allergy Unknown TROUBLE Verified 12/23/20 22:19 BREATHING adhesive AdvReac Unknown WELTS AND Verified 12/23/20 22:19 BURNING meloxicam AdvReac Unknown STOMACH Verified 12/23/20 22:19 UPSET Home Medications Medication Instructions Recorded Confirmed Type albuterol sulfate 90 mcg/actuation 2 puff INHALATION Q6H PRN 05/19/18 12/23/20 History aerosol inhaler (Ventolin HFA) aspirin 81 mg chewable tablet 81 mg PO HS 05/19/18 12/23/20 History (Aspirin Childrens) cholecalciferol (vitamin D3) 50 2,000 unit PO QAM 05/19/18 12/23/20 History mcg (2,000 unit) tablet insulin aspart U-100 100 unit/mL 20 unit SUBCUT TIDM 05/19/18 12/23/20 History (3 mL) subcutaneous pen (Novolog Flexpen U-100 Insulin aspart) insulin glargine 100 unit/mL (3 60 - 68 unit SUBCUT HS 05/19/18 12/23/20 History mL) subcutaneous pen (Lantus Solostar U-100 Insulin) umeclidinium 62.5 mcg-vilanterol 1 inh INHALATION QAM 05/19/18 12/23/20 History 25 mcg/actuation powdr for inhalation (Anoro Ellipta) guaifenesin 600 mg tablet, 600 - 1,200 mg PO DAILY PRN 02/04/19 12/23/20 History extended release 12 hr (Mucinex) ketoconazole 2 % shampoo 2 % TOPICAL 3XWK 02/04/19 12/23/20 History nystatin 100,000 unit/gram topical 1 applic TOPICAL TID PRN 02/04/19 12/23/20 History powder olmesartan 20 mg tablet 10 mg PO QAM 02/04/19 12/23/20 History fluticasone furoate 100 1 inh INHALATION QAM 12/25/19 12/23/20 History mcg/actuation blister powder for inhalation (Arnuity Ellipta) albuterol sulfate 2.5 mg CONTINUOUS NEBULIZATION Q4H 12/23/20 12/23/20 History PRN furosemide 20 mg tablet 20 mg PO DAILY PRN 12/23/20 12/23/20 History gentamicin 0.3 % eye drops 1 drp OPL Q4H 12/23/20 12/23/20 History insulin aspart U-100 100 unit/mL 15 unit SUBCUT .HS SNACK 12/23/20 12/23/20 History (3 mL) subcutaneous pen (Novolog Flexpen U-100 Insulin aspart) ipratropium bromide 0.02 % 2.5 ml CONTINUOUS NEBULIZATION 12/23/20 12/23/20 History solution for inhalation .Q6-8H PRN ketoconazole 2 % topical cream 1 applic TOPICAL DAILY 12/23/20 12/23/20 History levothyroxine 150 mcg tablet 150 mcg PO QAM 12/23/20 12/23/20 History liraglutide 0.6 mg/0.1 mL (18 mg/3 1.8 mg SUBCUT DAILY 12/23/20 12/23/20 History mL) subcutaneous pen injector (Victoza 3-Chandler) metformin 1,000 mg tablet 1,000 mg PO BIDM 12/23/20 12/23/20 History mupirocin 2 % topical ointment 1 applic TOPICAL TID 12/23/20 12/23/20 History prednisone 20 mg tablet 20 mg PO .DAILY X 5 DAYS 12/23/20 12/23/20 History vitamin B complex 1 ea PO DAILY 12/23/20 12/23/20 History warfarin 5 mg tablet (Jantoven) 5 mg PO 5XWK 12/23/20 12/23/20 History warfarin 5 mg tablet (Jantoven) 7.5 mg PO 2XWK 12/23/20 12/23/20 History Patient History Medical History (Updated 12/23/20 @ 22:55 by Rickie Alfonso DO) Anxiety Asthma rare use PRN inh COPD (chronic obstructive pulmonary disease) inhaler daily/prn Depression Diabetes mellitus, type 2 IDDM Herniated disc Hiatal hernia Hypothyroidism Migraine Non-alcoholic cirrhosis Follows with [facility] On home oxygen therapy 2.5L via CPAP at night Sleep apnea CPAP with 2.5L Surgical History History of colonoscopy with polypectomy History of liver biopsy 12/2018 History of partial hysterectomy History of right breast biopsy benign History of tooth extraction most teeth removed Hx of tonsillectomy Hx of tubal ligation Family History Father Family history of diabetes mellitus Grandmother (Paternal) Family history of diabetes mellitus Son Family history of diabetes mellitus Other Cancer Heart disease Hypertension Lung disease No family history of adverse response to anesthesia Social History Smoking Status: Current every day smoker Tobacco Type: Cigarettes Cigarettes Per Day: 2; Second Hand Exposure: No; Tobacco Cessation Education Requested by Patient: No Hx Alcohol Use: No Hx Substance Use: No Preferred Language: Slovak Communication Ability: Effective Quality Assurance Practice Manager Required: No Beliefs That Will Affect Care: None marital status: Current Living Situation: Family Current Living Situation Comment: son lives with pt current occupational status: disabled How many Children do You have: 3 Feels Safe at Home: Yes Safety Concerns: Feels Safe At This Time Assistive Devices: Cane, CPAP, Oxygen - at Night and Walker Review of Systems Review of Systems: ROS: Gen: Denies weakness, fevers, weight loss Eyes: No eye redness, or pain, no recent vision changes Resp: No SOB, no cough Cardio: No palpitations/irregular beats, no chest pain GI: No abdominal pain, no nausea/vomiting : Denies pain on urination Skin: No jaundice, itching or new rashes Ext: edema Physical Exam Constitutional: well developed, well nourished, + morbidly obese and cooperative; not in distress Eyes: PERRL, conjunctivae normal, anicteric sclerae ENMT: external ear and nose normal, oropharynx normal Respiratory: normal respiratory effort, lungs clear to auscultation normal respiratory effort and able to speak in complete sentences; no respiratory distress, no labored breathing, does not use accessory muscles and no cough Cardiovascular: RRR, no murmur, no edema Gastrointestinal (Abdomen): normal bowel sounds, soft, nontender, no hepatosplenomegaly NO obvious ascites Musculoskeletal: Bilat lower extremities with mild pedal and lower leg edema Skin: no rashes, warm and dry normal turgor Neurologic: PERRL, EOMI, accommodation nl, no face palsy, no dysarthria awake; not confused Psychiatric: A+Ox3, euthymic affect Orientation: alert, oriented x 3 and cooperative Lymphatic: no cervical or axillary lymphadenopathy Results & Data ([facility]) Vital Signs (Past 12 Hours) Vital Signs Temp Pulse Resp BP Pulse Ox 12/24/20 04:03 36.3 C L 98 H 20 126/68 96 12/24/20 01:30 36.5 C 104 H 20 125/63 97 12/24/20 01:02 98 H 167/66 H 95 12/23/20 23:33 99 H 147/63 H 97 12/23/20 23:20 96 H 20 96 12/23/20 22:09 37.0 C 98 H 25 H 120/52 L 96 Laboratory Results WBC 6.7, Hb 7.6, Hct 23.7, Plts 152, PT 22 INR 2.3, Na 140, K 3.7, Cl 110, CO2 25, BUN 13, Cr 0.9. Diagnostic Findings Bilat lower ext US: no DVTs CXR: 1. Cardiomegaly with mild congestive change. 2. Trace bilateral pleural effusions. (1) Anemia Anemia type: unspecified type Qualified Code(s): D64.9 - Anemia, unspecified
[2020-12-24 07:48] LABS: INR 2.3 (0.9-1.1); Prothrombin Time 22.2 Seconds (9.0-12.0)
[2020-12-24 07:57] LABS: Albumin Globulin Ratio 0.6 (0.9-2); Albumin Level 2.4 gm/dl (3.4-5.0); Bilirubin,Total 1.3 mg/dl (0.2-1); Calcium 8.8 mg/dl (8.5-10.1); Creatinine Clr Calc Pharmacy 88.3 ml/min; Est GFR (African American) 70.8 ml/min; Est GFR (Non-African American) 61.1 ml/min; Globulin 3.9 gm/dl (2.5-4.0); Potassium 3.7 mmol/L (3.5-5.1); Total Protein 6.3 gm/dl (6.4-8.2)
[2020-12-24 08:07] LABS: Hypochromasia Present
[2020-12-24] MEDS ORDERED: OLMESARTAN MEDOXOMIL 20 MG TAB PO SCH (09:00)
[2020-12-24] MEDS ORDERED: INSULIN GLARGINE SOLOSTAR 100 UNITS/ML 3 ML PEN SC SCH (09:00)
[2020-12-24] MEDS ORDERED: FLUTICASONE FUROATE 100MCG 14 PUFFS/INHALER INH SCH (09:00)
[2020-12-24] MEDS ORDERED: UMECLIDINIUM/VILANTEROL 62.5/25MCG 7 PUFFS/INHALER INH SCH (09:00)
[2020-12-24] MEDS ORDERED: VITAMIN B COMPLEX PO SCH (09:00)
[2020-12-24] MEDS ORDERED: CIPROFLOXACIN CONSULT ACTIVE PRN (09:00)
[2020-12-24] MEDS ORDERED: ADVANCED PROBIOTIC 1250 MG CAPSULE PO SCH (09:00)
[2020-12-24] MEDS ORDERED: AZTREONAM CONSULT ACTIVE PRN (09:00)
[2020-12-24 11:55] LABS: Hematocrit (blood only) 24.8 % (37-47); Hemoglobin 7.8 g/dL (12.0-16.0)
[2020-12-24] MEDS ORDERED: CIPROFLOXACIN / D5W 400 MG/200 ML BAG IV SCH (14:00)
--- NOTE | 2020-12-24 18:16 | Discharge Summary ---
Date of Service December 24, 2020 Admission HPI Per Admitting Provider History obtained from patient, family, and records. Medical history significant for hypertension, COPD, PAN on CPAP, NAFLD cirrhosis, DM2 insulin requiring, chronic lymphedema, ongoing tobacco abuse, DVT on Coumadin. Last confinement 2012 for CP exacerbation. Patient noted left leg swelling last July 2020. Outpatient venous ultrasound showed chronic DVT within 1 of 2 duplicated mid left femoral veins. Thrombus is located peripherally and vein is patent. CT chest negative for pulmonary embolism. Patient started on Coumadin. Few days ago, patient noted transient dark stools which he attributed to Pepto-Bismol intake. No abdominal pain complaints. No nausea, emesis symptoms. Bilateral leg swelling without unusual weight gain, fever, chills as per patient. Usual cough symptoms from COPD as per patient. Patient denies chest pain, unusual shortness of breath. Compliant with home medications and CPAP although her CPAP machine is not right as per patient. Outpatient D-dimer was noted to be abnormal. Serum BNP within normal limits. Melanotic stool noted to be heme positive at the ER. IV PPI bolus given at the ER. Medical History as above No prior EGDs. 2017 colonoscopy poor preparation Surgical History : Breast lesion excision, BTL, vaginal hysterectomy Family History : Breast cancer, pancreatic cancer, DM, COPD, leukemia, lung cancer, stroke Personal/Social history : Few cigarettes a day, no EtOH intake, disabled Admission Exam Per Admitting Provider GENERAL: Slightly uncomfortable, morbidly obese, unkempt, no respiratory distress SKIN: Pallor, warm HEENT: Pale palpebral conjunctivae, no ptosis, dry buccal mucosa NECK : Supple, short neck, no tenderness CHEST : Decreased breath sounds, expiratory wheezes, no tenderness HEART : RRR, no obvious murmurs ABDOMEN: Marked distention, nontender EXTREMITIES : Bilateral LE swelling, no LE tenderness, no other conspicuous deformities noted NEUROLOGIC : Coherent, no facial asymmetry, no other gross focality Principal Diagnosis Anemia Discharge Exam GENERAL: Alert and oriented x3. NAD, on RA. HEENT: No pallor, no icterus. Pupils equal, round and reactive to light. Oral mucosa moist. NECK: No JVD, no neck masses. HEART: S1 and S2 heard. Regular rate and rhythm. No murmur, no gallop. RESPIRATORY SYSTEM: Normal AP diameter. No accessory muscle use. No wheezing, no crackles. ABDOMEN: Soft, bowel sounds present, nontender, no distention. CENTRAL NERVOUS SYSTEM: Alert and oriented x3. No facial droop. Speech is clear. Obeys simple commands. Moves extremities. EXTREMITIES: 2+ BLE edema, no erythema seen. Discharge Data Allergies Allergy/AdvReac Type Severity Reaction Status Date / Time Cephalosporins Allergy Mild TROUBLE Verified 12/23/20 22:19 BREATHING ciprofloxacin Allergy Mild itch Verified 12/24/20 04:46 Penicillins Allergy Mild TROUBLE Verified 12/23/20 22:19 BREATHING amoxicillin Allergy Unknown HIVES/SWELL Verified 12/23/20 22:19 ING erythromycin base Allergy Unknown TROUBLE Verified 12/23/20 22:19 BREATHING adhesive AdvReac Unknown WELTS AND Verified 12/23/20 22:19 BURNING meloxicam AdvReac Unknown STOMACH Verified 12/23/20 22:19 UPSET Consultations 12/23/20 21:19 ED Decision to Admit Stat 12/24/20 01:44 Consult Gastroenterology Routine Ordered Studies 12/23/20 17:37 US venous doppler [facility] Urgent Hospital Course (1) Anemia: 60-year-old female with PMH of NAFLD cirrhosis, DM 2 insulin requiring, chronic lymphedema, recent DVT 2 months ago on Coumadin, HTN, COPD, PAN on CPAP presented 12/23 from primary care's office due to concern of high D-dimer. In the ED, BLE negative for DVT. FOBT was also found to be positive and hemoglobin was 8.2 at presentation, which remained fairly stable between 7.5 and 8 during the stay. Patient was admitted for concerns of variceal bleed. GI saw the patient and did not think she is undergoing any active bleeding. GI okay with discharging her. No further recommendation at the time of discussion with GI. Personally discussed with GI. Patient will need to follow-up with her primary care physician and GI as an outpatient. Following instructions were communicated to the patient at time discharge: Follow-up with your primary care physician within a week time. Follow-up with your GI doctor as an outpatient in a week time/as scheduled. Take medications as prescribed. Total Time Total Time Spent Total Time Spent (In Minutes): 45 Discharge Plan Discharge Items Patient Disposition: Home - Self-Care Reason For Visit: UGIB Discharge Diagnosis: Anemia Activity: Resume your previous activity Non-emergency contact: Primary Care Provider Call non-emergency contact if: you have any medication questions and your symptoms worsen Follow-up/Referrals: Hilda Blas MD [Primary Care Provider] - (Date & Time 12/31/2020 10:40 AM Provider Mukesh Maddox MD Department Family Medicine [facility] ) Diet: Regular Addtl Attending Provider Instructions: Follow-up with your primary care physician within a week time. Follow-up with your GI doctor as an outpatient in a week time/as scheduled. Take medications as prescribed. Pending Studies at Discharge: No Stand-Alone Forms: My [facility] [employer], Smoking Cessation Medications and DC Order Prescriptions: Continued aspirin [Aspirin Childrens] 81 mg Tablet,Chewable 81 mg PO HS RF: 0 albuterol sulfate [Ventolin HFA] 90 mcg/actuation Hfa Aerosol Inhaler 2 puff INHALATION Q6H PRN (Reason: Shortness Of Breath) RF: 0 insulin aspart U-100 [Novolog Flexpen U-100 Insulin] 100 unit/mL Insulin Pen 20 unit SUBCUT TIDM RF: 0 Lantus Solostar U-100 Insulin 100 unit/mL (3 mL) Insulin Pen 60 - 68 unit SUBCUT HS RF: 0 cholecalciferol (vitamin D3) 2,000 unit Tablet 2,000 unit PO QAM RF: 0 Anoro Ellipta 62.5-25 mcg/actuation Blister With Device 1 inh Inhalation QAM RF: 0 olmesartan 20 mg Tablet 10 mg PO QAM RF: 0 ketoconazole 2 % Shampoo 2 % TOPICAL 3XWK RF: 0 nystatin 100,000 unit/gram Powder 1 applic TOPICAL TID PRN (Reason: Rash) RF: 0 guaifenesin [Mucinex] 600 mg Tablet Extended Release 12hr 600 - 1,200 mg PO DAILY PRN (Reason: Congestion) RF: 0 Arnuity Ellipta 100 mcg/actuation Blister With Device 1 inh INHALATION QAM RF: 0 prednisone 20 mg tablet 20 mg PO .DAILY X 5 DAYS RF: 0 vitamin B complex Elixir 1 ea PO DAILY RF: 0 warfarin [Jantoven] 5 mg tablet 5 mg PO 5XWK RF: 0 warfarin [Jantoven] 5 mg tablet 7.5 mg PO 2XWK RF: 0 furosemide 20 mg tablet 20 mg PO DAILY PRN (Reason: Edema) RF: 0 gentamicin 0.3 % drops 1 drp OPL Q4H RF: 0 ipratropium bromide 0.02 % Solution 2.5 ml continuous nebulization .Q6-8H PRN (Reason: Shortness Of Breath Or Wheezing) RF: 0 ketoconazole 2 % Cream 1 applic TOPICAL DAILY RF: 0 levothyroxine 150 mcg tablet 150 mcg PO QAM RF: 0 metformin 1,000 mg tablet 1,000 mg PO BIDM RF: 0 mupirocin 2 % ointment 1 applic TOPICAL TID RF: 0 insulin aspart U-100 [Novolog Flexpen U-100 Insulin] 100 unit/mL (3 mL) insulin pen 15 unit SUBCUT .HS SNACK RF: 0 albuterol sulfate 2.5 mg /3 mL (0.083 %) Solution For Nebulization 2.5 mg continuous nebulization Q4H PRN (Reason: Shortness Of Breath Or Wheezing) RF: 0 Victoza 3-Chandler 0.6 mg/0.1 mL (18 mg/3 mL) pen injector 1.8 mg SUBCUT DAILY RF: 0 Discharge Orders: Discharge Order (Routine); Ordered 12/24/20 Ordered By: Joyce Barnhart Admission Data Admit Date/Time: 12/23/20 22:46 Attending Provider: Joyce Barnhart Admit Provider: Joyce Barnhart Primary Care Provider: Hilda Blas Other Providers: Jacob Nava ; Alexy Church ; Glo Elder ; Debo Davey ; Caryl Messer ; Dariusz Lynn ; Nery Valle ; Mary Sullivan ; Fadi Del Cid ; Latonya Whitlock ; Jeri Jauregui ; Daija Kim ; Wandy [place] ; Mounika Villarreal Other Interventions: Discharge Summary Assessment (RN) Last Done: 12/24/20 14:12
--- NOTE | 2020-12-25 16:48 | Electrocardiogram Report ---
Test Reason : Blood Pressure : / mmHG Vent. Rate : 101 BPM Atrial Rate : 101 BPM P-R Int : 142 ms QRS Dur : 090 ms QT Int : 360 ms P-R-T Axes : 047 000 051 degrees QTc Int : 466 ms Poor data quality, interpretation may be adversely affected Sinus tachycardia Low voltage QRS Borderline ECG When compared with ECG of 19-MAY-2018 16:56, No significant change was found Confirmed by Arnoldo Mora ([id number]) on 12/25/2020 4:48:11 PM Referred By: Alfredo Grant Confirmed By:Noe Mora
== END 2020-12-24 14:25 | disposition home or self-care (01) | DRG 812 ==
LOC: ED 16:38 → INTOOBSV 22:46 → 2S 22:46

== ENCOUNTER 2021-02-09 06:44 | Inpatient (IN) ==
[~2021-02-09 06:44] MED LIST changes: -ALBU18002 INH; -ASPCH81X PO; -ATOR-54 PO; -B-COTAB18 PO; -BNC20 PO; -CHOL20009 PO; +ETOMIDATE 2 MG/ML 20 ML VIAL IV ONE; -GLC/500 PO; -INSDGI SC; -KETAMINE HCL INJ 50 MG/ML 10 ML VIAL ONE; -LEVO200T6 PO; -LIRA18IN SC; -MIDAZOLAM HCL 1 MG/ML 2ML VIAL ONE; -NVLGIPEN SC; -OXGN; -PROPOFOL IV EMULSION 10 MG/ML 20 ML VIAL IV ONE; -SODIUM CHLORIDE 0.9% 500ML 500 ML IV ONE; +SUCCINYLCHOLINE CHLORIDE 20 MG/ML 10 ML VIAL IV ONE
[2021-02-09] MEDS ORDERED: DEXTROSE 50% 50 ML SYRINGE IV ONE (06:53)
[2021-02-09] MEDS ORDERED: SODIUM CHLORIDE 0.9% 250 ML IV PRN ×5 (06:56→15:33)
[2021-02-09] MEDS ORDERED: LIDOCAINE 2% LOCAL 50 ML VIAL ONE (06:59)
[2021-02-09] MEDS ORDERED: RAPID SEQUENCE INDUCTION BAG ONE (07:01)
[2021-02-09] MEDS ORDERED: PANTOprazole 80 MG in DEXTROSE 5% 100 ML IV ONE (07:10)
[2021-02-09] MEDS ORDERED: SODIUM CHLORIDE 0.9% 1000ML 1,000 ML IV SCH (07:15)
[2021-02-09 07:29] LABS: iSTAT Creatinine 1.7 mg/dl (0.6-1.3); iSTAT Hemoglobin 6.5 g/dl (12.0-16.0); iSTAT Ionized Calcium 1.05 mmol/l (1.12-1.32); iSTAT Potassium 6.4 mmol/L (3.3-5.0)
--- NOTE | 2021-02-09 07:30 | XRay Report ---
PORTABLE SUPINE AP CHEST RADIOGRAPH CLINICAL HISTORY: Sepsis. COMPARISON STUDY: Chest radiograph February 02, 2021. FINDINGS: This exam was technically difficult to obtain. The patient is rotated. Tip of endotracheal tube is 3.3 cm above the rena. No pneumothorax is identified on this supine exam. Apparent left low er lung opacity is noted. Cardiomegaly is unchanged. Pulmonary vascular congestion is similar to prio r exam. IMPRESSION: 1. Tip of endotracheal tube 3.3 cm above the rena. 2. Technically difficult study to obtain. Apparent left mid and basilar airspace opacity is likely ar tifactual although consolidation could appear similar. This can be assessed on follow-up radiographs. 3. Cardiomegaly with pulmonary vascular congestion. ACT 112: Negative or not required by law. Electronically signed by: Bakari Colin M.D. 02/09/2021 7:28 AM
[2021-02-09 07:33] LABS: Hematocrit (blood only) 16.5 % (37-47); Hemoglobin 4.9 g/dL (12.0-16.0); Mean Corpuscular Hemoglobin 24.4 pg (25-34); Mean Corpuscular Hgb Conc 29.7 g/dL (32-36); Mean Corpuscular Volume 82.1 fL (80-100); Mean Platelet Volume 9.1 fL (7.4-10.4); Nucleated RBC # (auto) 0.05 K/uL (0-0); Nucleated RBC % (auto) 0.3 %; Platelet Count 158 K/uL (130-400); RDW Coefficient of Variation 20.7 % (11.5-14.5); RDW Standard Deviation 62.5 fL (36.4-46.3); Red Blood Count 2.01 M/uL (4.2-5.4); White Blood Count 16.69 K/uL (4.8-10.8)
[2021-02-09 07:35] LABS: INR 2.3 (0.9-1.1); Partial Thromboplastin Ratio 1.4; Prothrombin Time 21.5 Seconds (9.0-12.0)
[2021-02-09] MEDS ORDERED: PROPOFOL IV EMULSION 10 MG/ML 100 ML VIAL IV ONE ×4 (07:36→17:24)
[2021-02-09] MEDS ORDERED: PROPOFOL BOLUS FROM BAG IV PRN ×2 (07:44→17:53)
[2021-02-09] MEDS ORDERED: STAT IV Infusion **Titration per Protocol STA ×6 (07:44→23:01)
[2021-02-09] MEDS ORDERED: propofoL 1,000 MG/100 ML VIAL IV SCH (07:45)
[2021-02-09 07:46] LABS: ALC (manual) 0.43 K/uL (1.2-3.4); ANC (manual) 15.39 K/uL (1.4-6.5); Echinocytes 1+; Eosinophils # (manual) 0.15 K/uL (0-0.5); Eosinophils % (manual) 0.9 %; Hypochromasia Present; Lymphocytes # (manual) 0.43 K/uL (1.2-3.4); Lymphocytes % (manual) 2.6 %; Metamyelocytes # (manual) 0.28 K/uL (0-0); Metamyelocytes % (manual) 1.7 %; Monocytes # (manual) 0.43 K/uL (0.11-0.59); Monocytes % (manual) 2.6 %; Neutrophils # (manual) 15.39 K/uL (1.4-6.5); Neutrophils % (manual) 92.2 %
[2021-02-09] MEDS ORDERED: DAPTOmycin 650 MG in SYRINGE 0 ML IV ONE (07:48)
[2021-02-09 07:49] LABS: Alanine Aminotransferase 216 U/L (12-78); Albumin Globulin Ratio 0.5 (0.9-2); Albumin Level 1.3 gm/dl (3.4-5.0); Alkaline Phosphatase 124 U/L (45-117); Aspartate Aminotransferase 473 U/L (15-37); Bilirubin,Total 1.1 mg/dl (0.2-1); Blood Urea Nitrogen 37 mg/dl (7-18); Calcium 8.2 mg/dl (8.5-10.1); Carbon Dioxide 15 mmol/L (21-32); Chloride 111 mmol/L (98-107); Est GFR (African American) 35.3 ml/min; Est GFR (Non-African American) 30.5 ml/min; Globulin 2.7 gm/dl (2.5-4.0); Glucose 162 mg/dl (70-99); Magnesium 2.4 mg/dl (1.8-2.4); Potassium 6.1 mmol/L (3.5-5.1); Sodium 138 mmol/L (136-145); Troponin I 0.067 ng/ml (0-0.045)
[2021-02-09] MEDS ORDERED: ERTAPENEM SODIUM 10 ML IV STA (07:51)
[2021-02-09] MEDS ORDERED: PHYTONADIONE 10 MG in SODIUM CHLORIDE 0.9% 50 ML IV ONE (07:52)
[2021-02-09] MEDS ORDERED: MEROPENEM 500 MG in SYRINGE 0 ML IV STA (08:13)
[2021-02-09] MEDS ORDERED: CALCIUM GLUCONATE 10% 2,000 MG in SODIUM CHLORIDE 0.9% 50 ML IV STA (08:15)
[2021-02-09] MEDS ORDERED: DEXTROSE 50% 50 ML SYRINGE IV STA (08:15)
[2021-02-09] MEDS ORDERED: INSULIN HUMAN REGULAR PER UNIT 10 UNITS in SYRINGE 9.9 ML IV STA (08:16)
[2021-02-09] MEDS ORDERED: MIDAZOLAM BOLUS FROM BAG IV PRN (08:18)
[2021-02-09] MEDS ORDERED: MIDAZOLAM HCL 1 MG/ML 2ML VIAL ONE (08:25)
[2021-02-09] MEDS ORDERED: MIDAZOLAM HCL 125 MG/250 ML BAG IV SCH (08:30)
--- NOTE | 2021-02-09 08:54 | Critical Care Consultation ---
Date of Consultation February 09, 2021 Assessment & Plan (1) Acute blood loss anemia: Assessment: 60yo female who presents via EMS after a fall at home. On arrival, patient was unresponsive and found to be hypothermic, severely anemic to 4.9, and with a supratherapeutic INR (2.3). Patient was intubated in the ED due to hemodynamic instability. Patient continues to require mechanical ventilation in addition to pressor support. Critical care indication: need for mechanical ventilation, pressor support 24-hour events: intubated in ED for hemodynamic instability, transfused 1u pRBC, currently undergoing FFP infusion, started on pressors after persistent hypotension Plan: Neurologic CAM ICU unable to be performed Sedation: midazolam Analgesia: n/a CT head pending Cardiac Remains on levophed for BP support Troponin elevated to 0.067 on arrival, trend troponin q6h until peak Recent echo (12/24/20): EF 70%, mild concentric LVH, hyperdynamic LV, mild MR Respiratory Patient with history of COPD, history of hospitalizations for COPD exacerbation CXR on arrival shows pulmonary vascular congestion Maintaining adequate oxygen saturation on mechanical ventilation Continue mechanical ventilation, wean as tolerated Gastrointestinal Diet: NPO GI consulted: given leukocytosis with left shift, elevated lactate, anasarca, and a drop in Hgb of only 2.0, they feel patient's presentation is likely septic vs ischemic colitis rather than primary GI bleed GI recommendations: Continue fluid resuscitation Continue INR reversal - 2.3 on arrival, vitamin K 10mg IV x1 in ED, GI recommends 1u Kcentra, trend INR Pantoprazole IV 80mg x1 given in ED, continue at 40mg IV q8h Octreotide IV started GI will reevaluate for timing of potential scope Transaminitis on admission (AST 473, ALT 216, AlkP 124), unclear if related to hypotension; Tbili 1.1 Trend CMP daily Renal/electrolytes Hypocalcemia repleted in ED; replete other electrolytes as needed BRENT on admission with Cr elevated to 1.76 (baseline ~1.0) Trend daily Genitourinary No concerns at this time Rosales catheter draining normal-appearing urine at this time Strict I/O's Endocrine Hypoglycemic to 57 on arrival, has since improved, currently stable Continue ISS per protocol Home DM2 meds held TSH wnl, random cortisol wnl Hematologic Hgb 4.9 on arrival, previous value 7.4 (02/02/2021); FOBT positive 1u pRBC transfused, patient now undergoing transfusion of 2u FFP Trend H/H q6h Patient's home coumadin discontinued, continue INR reversal: Vitamin K 10mg IV x1 given in ED GI recommending 1u Kcentra administration Repeat PT/INR ordered LDH 902, haptoglobin pending Blood type: O positive Infectious disease On arrival, patient hypothermic to 32.6, WBC elevated to 16.7 with left shift, UA does not appear infected; CXR with some consolidations though more likely artifact than infectious Lactate elevated to 11.2, procalcitonin wnl Covid negative Monitor fever curve, trend daily CBC, lactate Integumentary No concerns at this time Lines/access Left forearm PIV (18G), right upper arm PIV (22G), RLE intraosseous line Prophylaxis DVT ppx: contraindicated GI ppx: protonix IV Contact information Patient's son (Semaj Menendez, ) would like to be contacted with all updates Thank you the opportunity to participate in this patient's care. Please see attending documentation for further recommendations. Supervising Physician Co-Signing Physician Notes Patient seen and examined. EMR reviewed. Please refer to my separate procedure notes. Discussed with family practice resident and reviewed assessment plan as noted below. Asked to assist in the care of this morbidly obese patient admitted with hypothermia, hypotension, lactic acidosis, acute renal failure, and probable GI bleeding. History was obtained entirely from discussion with the ER staff as well as review of the electronic medical record as the patient was intubated on arrival to the ER. She had recently been admitted with probable GI bleed and elected to pursue endoscopy in the outpatient setting. This was never accomplished. She continued to take her Coumadin. She presented altered in the emergency room and in profound shock. An IO was attempted and eventually placed. She was initiated on Versed. She was intubated. She was typed and crossed and received 2 units of packed cells in the emergency room and then was transferred to the intensive care unit. I assessed the patient immediately on arrival to the ICU. We were unable to get a reliable noninvasive blood pressure and pressors were running through small IVs. A central line and arterial line were placed. Please refer to separate procedure notes. Patient was profoundly hypotensive with systolic blood pressures in the 40s. We aggressively resuscitated her with over 4 L of crystalloid push and initiated high-dose norepinephrine as well as vasopressin. Pushes of bicarb and calcium were also undertaken. Follow-up labs demonstrated persistent anemia and the patient was transfused an additional 2 units and 2 units of FFP. I believe she received Kcentra for reversal of her INR in the ER as well. Discussed with GI. They feel the patient is too unstable to consider endoscopy and would favor ischemic bowel. The patient attempted to have a CT scan done however she is too large to fit through the gantry so no imaging can be conducted. She is not a surgical candidate. We will continue to try and volume resuscitate the patient and maintain a normal blood pressure although if the patient does have ischemic bowel, these high-dose pressor agents will likely aggravate that. If her lactate fails to clear or she develops progressive renal failure or shock despite these 2 pressors, I would not recommend escalation of care as this does not appear to be a reversible course. She has been initiated on meropenem which should be appropriate to cover any potential bacterial translocation across the gut associated with ischemic bowel. She is oxygenating and ventilating reasonably well currently. Unfortunately I am not entirely convinced that this is a salvageable situation. Will discuss with her son who apparently is the medical proxy decision-maker. Would favor not escalating care at this point in time and certainly would not favor CPR or defibrillation in the event of cardiac arrest. Total critical care time exclusive of procedures 122 minutes History of Present Illness History of Present Illness 60yo female with a PMH notable for chronic DVT (on coumadin), HTN, IDDM2, COPD, PAN on CPAP, NAFLD cirrhosis, active tobacco use, and chronic lymphedema presents via EMS after developing progressive weakness and confusion at home. HPI is gathered through a phone discussion with patient's son (Jhonny Menendez at [phone]). Per son, patient complained of progressive fatigue over 2-3 days prior to arrival, with increasing confusion over the few hours prior to calling EMS. This morning, patient was noted with difficulty getting around her room as well as increasing dyspnea with exertion. Patient was initially reluctant to contact EMS, but patient eventually asked her son to call 911 just prior to patient slipping "out of it" and becoming unresponsive. Patient was unresponsive when EMS arrived. EMS noted one bloody BM prior to leaving patient's home, and another bloody BM just prior to ED arrival. Of note, patient was recently admitted (Dec 232020) for DVT/PE rule-out after PCP noted a positive D-dimer. At that time, BLE doppler was negative for DVT, and CTA chest was negative for PE. Patient was found to be anemic to 8.2 at that time heme-positive stools, though this anemia felt to be stable at that time. GI was consulted during that stay, and recommended discontinuation of coumadin given patient's anemia, and because patient's six-month post-DVT course of anticoagulation was complete. However, it appears this was not discontinued upon discharge, and it appears patient has continued taking it, as her INR was elevated to 2.3 on arrival this morning. GI also recommended outpatient scope, but whether or not this was completed is unclear. Allergies Allergy/AdvReac Type Severity Reaction Status Date / Time Cephalosporins Allergy Severe TROUBLE Verified 02/09/21 08:35 BREATHING erythromycin base Allergy Severe TROUBLE Verified 02/09/21 08:35 BREATHING Penicillins Allergy Severe TROUBLE Verified 02/09/21 08:35 BREATHING amoxicillin Allergy Intermediate HIVES/SWELL Verified 02/09/21 08:35 ING clavulanic acid Allergy Intermediate HIVES/SWELL Verified 02/09/21 08:35 [From Augmentin] ING sulfamethoxazole Allergy Intermediate ITCHY HIVES Verified 02/09/21 08:35 [From Bactrim] trimethoprim [From Bactrim] Allergy Intermediate ITCHY HIVES Verified 02/09/21 08:35 ciprofloxacin Allergy Mild itch Verified 02/09/21 08:35 cephalexin Allergy Unknown ON GMG MED Verified 02/09/21 08:35 LIST rofecoxib Allergy Unknown ON [facility]G MED Verified 02/09/21 08:35 LIST adhesive AdvReac Intermediate WELTS AND Verified 02/09/21 08:35 BURNING meloxicam AdvReac Unknown STOMACH Verified 12/23/20 22:19 UPSET Home Medications Medication Instructions Recorded Confirmed Type albuterol sulfate 90 mcg/actuation 2 puff INHALATION Q6H PRN 05/19/18 02/09/21 History aerosol inhaler (Ventolin HFA) aspirin 81 mg chewable tablet 81 mg PO HS 05/19/18 02/09/21 History (Aspirin Childrens) cholecalciferol (vitamin D3) 50 2,000 unit PO QAM 05/19/18 02/09/21 History mcg (2,000 unit) tablet insulin aspart U-100 100 unit/mL See Rx Instructions .ROUTE .COMPLEX 05/19/18 02/09/21 History (3 mL) subcutaneous pen (Novolog Flexpen U-100 Insulin aspart) insulin glargine 100 unit/mL (3 60 - 68 unit SUBCUT HS 05/19/18 02/09/21 History mL) subcutaneous pen (Lantus Solostar U-100 Insulin) umeclidinium 62.5 mcg-vilanterol 1 inh INHALATION QAM 05/19/18 02/09/21 History 25 mcg/actuation powdr for inhalation (Anoro Ellipta) guaifenesin 600 mg tablet, 600 - 1,200 mg PO DAILY PRN 02/04/19 02/09/21 History extended release 12 hr (Mucinex) ketoconazole 2 % shampoo 2 % TOPICAL WK 02/04/19 02/09/21 History nystatin 100,000 unit/gram topical 1 applic TOPICAL TID PRN 02/04/19 02/09/21 History powder olmesartan 20 mg tablet 10 mg PO QAM 02/04/19 02/09/21 History fluticasone furoate 100 1 inh INHALATION QAM 12/25/19 02/09/21 History mcg/actuation blister powder for inhalation (Arnuity Ellipta) albuterol sulfate 2.5 mg CONTINUOUS NEBULIZATION Q4H 12/23/20 02/09/21 History PRN furosemide 20 mg tablet 20 mg PO DAILY PRN 12/23/20 02/09/21 History gentamicin 0.3 % eye drops 1 drp OPL Q4H PRN 12/23/20 02/09/21 History ipratropium bromide 0.02 % 2.5 ml CONTINUOUS NEBULIZATION 12/23/20 02/09/21 History solution for inhalation .Q6-8H PRN ketoconazole 2 % topical cream 1 applic TOPICAL DAILY PRN 12/23/20 02/09/21 History levothyroxine 150 mcg tablet 150 mcg PO QAM 12/23/20 02/09/21 History liraglutide 0.6 mg/0.1 mL (18 mg/3 1.8 mg SUBCUT DAILY 12/23/20 02/09/21 History mL) subcutaneous pen injector (batterii 3-Chandler) metformin 1,000 mg tablet 1,000 mg PO BIDM 12/23/20 02/09/21 History mupirocin 2 % topical ointment 1 applic TOPICAL TID PRN 12/23/20 02/09/21 History warfarin 5 mg tablet (Jantoven) 5 mg PO 5XWK 12/23/20 02/09/21 History warfarin 5 mg tablet (Jantoven) 7.5 mg PO 2XWK 12/23/20 02/09/21 History benzonatate 100 mg capsule 100 mg PO TID PRN #20 cap 02/02/21 02/09/21 Rx furosemide 40 mg tablet (Lasix) 40 mg PO DAILY PRN #7 tab 02/02/21 02/09/21 Rx ondansetron 4 mg disintegrating 4 mg PO Q8H PRN #30 tab 02/02/21 02/09/21 Rx tablet Vitamin B Complex Elixir 1 ml PO DAILY 02/09/21 02/09/21 History Patient History Medical History (Updated 02/09/21 @ 14:07 by Caryn Zepeda PA-C) Anxiety Asthma rare use PRN inh Benign hypertension (06/29/12) COPD (chronic obstructive pulmonary disease) inhaler daily/prn Depression Diabetes mellitus, type 2 IDDM Gastroesophageal reflux disease (06/29/12) Herniated disc Hiatal hernia Hypothyroidism Migraine Non-alcoholic cirrhosis Follows with [facility] On home oxygen therapy 2.5L via CPAP at night Sleep apnea CPAP with 2.5L Surgical History History of colonoscopy with polypectomy History of liver biopsy 12/2018 History of partial hysterectomy History of right breast biopsy benign History of tooth extraction most teeth removed Hx of tonsillectomy Hx of tubal ligation Family History Father Family history of diabetes mellitus Grandmother (Paternal) Family history of diabetes mellitus Son Family history of diabetes mellitus Other Cancer Heart disease Hypertension Lung disease No family history of adverse response to anesthesia Social History Smoking Status: Unknown if ever smoked Tobacco Type: Cigarettes Cigarettes Per Day: 2; Second Hand Exposure: No; Hx Alcohol Use: No Hx Substance Use: No Preferred Language: Yakut Communication Ability: Effective Stores Despatch Hand Required: No Beliefs That Will Affect Care: None marital status: Current Living Situation: Family Current Living Situation Comment: son lives with pt current occupational status: disabled How many Children do You have: 3 Feels Safe at Home: Yes Assistive Devices: Cane, CPAP, Oxygen - at Night and Walker Review of Systems Review of Systems: Unobtainable due to endotracheal tube and Unobtainable due to reduced consciousness Physical Exam Physical Exam: Constitutional: morbidly obese woman laying in bed, mechanically ventilated HEENT: NCAT, MMM, ET tube in place CV: heart sounds distant, 3+ pitting edema present bilaterally Resp: breath sounds distant, coarse rhonchi noted in all mosnivais anteriorly, chest rise symmetrical GI: soft, distended, no obvious abdominal tenderness, BS present MSK: RLE IO line in place Neuro: sedated, unresponsive to verbal stimuli, grimaces to sternal rub, GCS E(2) V(NT) M(4) Results & Data Results & Data ([facility]) Vital Signs (Past 12 Hours) Vital Signs Temp Pulse Pulse Resp BP BP Pulse Ox 02/09/21 08:35 32.7 C L 89 22 91/39 L 94 02/09/21 08:30 32.7 C L 90 22 94/39 L 94 02/09/21 08:25 32.8 C L 93 H 23 126/47 L 94 02/09/21 08:20 32.8 C L 91 H 23 83/38 L 97 02/09/21 08:15 32.8 C L 91 H 23 89/54 L 97 02/09/21 08:10 32.8 C L 91 H 24 81/63 L 97 02/09/21 08:05 32.7 C L 87 23 77/30 L 96 02/09/21 07:55 32.4 C L 89 22 85/36 L 97 02/09/21 07:34 32.6 C L 90 28 H 134/54 L 97 02/09/21 07:22 18 02/09/21 07:15 93 H 29 H 100 02/09/21 06:56 88 23 51/44 L 91 Resident Activity Tracking Resident Involvement: Resident Care Provided Care Provided: Adult Hospital Medicine
[2021-02-09 09:07] LABS: Appearance Urine Clear (Clear); Bacteria Urine Automated Negative (Negative); Bilirubin Urine Negative (Negative); Blood Urine Negative (Negative); Color Urine Dark Yellow; Epithelial Cell Urine Auto >30 /lpf (0-5); Glucose Urine UA Negative (Negative); Ketones Urine Trace (Negative); Leukocyte Esterase Urine Trace (Negative); Nitrite Urine Negative (Negative); Protein Urine Trace (Negative); Urobilinogen Urine Negative (Negative)
--- NOTE | 2021-02-09 09:40 | History & Physical Report ---
Date of Service February 09, 2021 Assessment & Plan (1) Acute alteration in mental status: Plan: Likely multifactorial due to hypotension, GI bleed, sepsis - Admit to ICU - critical care consult, spoke with resident, appreciate their input. (2) Acute hypotension: Plan: Pressors started in the ED - management per critical care Intubated and sedated per protocol (3) GI bleed: Plan: Spoke with GI - appreciate their input. Too unstable to scope at this time - IV PPI gtt, IV octreotide due to hx of cirrhosis - Received two units of PRBCs in ED - follow H&H closely - INR 2.3 - given 2 units of FFP in the ED (4) Sepsis: Plan: Likely urinary source - blood and urine cultures pending. - Empiric Mirepenem started in the ED - will also cover for potential gut ischemia. (5) Hyperkalemia: Plan: Given D50, insulin, and calcium gluconate in the ED (6) Acute blood loss anemia: Plan: transfusion per ICU (7) COPD (chronic obstructive pulmonary disease): (8) Diabetes mellitus, type 2: Plan: ICU glycemic protocol (9) Non-alcoholic cirrhosis: Plan: Appreciate critical care assistance with this complicated patient. Spoke with pt's son who provided additional history and consent to aggressive measures at this time. Explained that the situation is rapidly evolving, that pt is critical, and he would like hear from other providers today with additional decisions to be made. He verbalized understanding. All questions answered. Pt seen and reviewed with collaborating physician, Dr. Maddox. Plan of care discussed and as outlined above. 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 History from the pt is unobtainable so the chart is extensively reviewed. Of note, pt was admitted to this facility 12/23-12/24/20 with melena and anemia. GI consulted and recommended scope but pt preferred to do as an outpatient. GI and case management attempted to reach patient multiple times to schedule with no response so this was not done. GI also recommended holding Coumadin, which anticoagulation clinic agreed with since pt had completed most of the recommended six month course for a DVT earlier this year, but it is unclear if this was done. Additional history was obtained from the pt's son because pt is currently unresponsive. Pt was seen in the ED a week ago for abdominal pain and SOB. Given solumedrol and a neb with improvement so discharged to home. Pt's son reports that pt was been declining over the past 2-3 days with progressive weakness, SOB, and GI distress. Has not been sleeping much. Last night, she was too weak to get into bed so son wanted to call 911 but pt refused to allow him. Finally, early this morning, pt again attempted to get into bed and instead slid on the floor. She was incontinent of bloody stool and finally agreed to allow son to call EMS. When EMS arrived, pt was awake but unresponsive. In the ED, she was noted to be hypotensive with an initial SBP of 51 and was hypothermic. She was intubated in the ED. Noted to be markedly anemic with concern for ongoing blood loss so blood transfusion with two units started emergently. Allergies Allergy/AdvReac Type Severity Reaction Status Date / Time Cephalosporins Allergy Severe TROUBLE Verified 02/09/21 08:35 BREATHING erythromycin base Allergy Severe TROUBLE Verified 02/09/21 08:35 BREATHING Penicillins Allergy Severe TROUBLE Verified 02/09/21 08:35 BREATHING amoxicillin Allergy Intermediate HIVES/SWELL Verified 02/09/21 08:35 ING clavulanic acid Allergy Intermediate HIVES/SWELL Verified 02/09/21 08:35 [From Augmentin] ING sulfamethoxazole Allergy Intermediate ITCHY HIVES Verified 02/09/21 08:35 [From Bactrim] trimethoprim [From Bactrim] Allergy Intermediate ITCHY HIVES Verified 02/09/21 08:35 ciprofloxacin Allergy Mild itch Verified 02/09/21 08:35 cephalexin Allergy Unknown ON [facility] MED Verified 02/09/21 08:35 LIST rofecoxib Allergy Unknown ON [facility] MED Verified 02/09/21 08:35 LIST adhesive AdvReac Intermediate WELTS AND Verified 02/09/21 08:35 BURNING meloxicam AdvReac Unknown STOMACH Verified 12/23/20 22:19 UPSET Home Medications Medication Instructions Recorded Confirmed Type albuterol sulfate 90 mcg/actuation 2 puff INHALATION Q6H PRN 05/19/18 02/09/21 History aerosol inhaler (Ventolin HFA) aspirin 81 mg chewable tablet 81 mg PO HS 05/19/18 02/09/21 History (Aspirin Childrens) cholecalciferol (vitamin D3) 50 2,000 unit PO QAM 05/19/18 02/09/21 History mcg (2,000 unit) tablet insulin aspart U-100 100 unit/mL See Rx Instructions .ROUTE .COMPLEX 05/19/18 02/09/21 History (3 mL) subcutaneous pen (Novolog Flexpen U-100 Insulin aspart) insulin glargine 100 unit/mL (3 60 - 68 unit SUBCUT HS 05/19/18 02/09/21 History mL) subcutaneous pen (Lantus Solostar U-100 Insulin) umeclidinium 62.5 mcg-vilanterol 1 inh INHALATION QAM 05/19/18 02/09/21 History 25 mcg/actuation powdr for inhalation (Anoro Ellipta) guaifenesin 600 mg tablet, 600 - 1,200 mg PO DAILY PRN 02/04/19 02/09/21 History extended release 12 hr (Mucinex) ketoconazole 2 % shampoo 2 % TOPICAL WK 02/04/19 02/09/21 History nystatin 100,000 unit/gram topical 1 applic TOPICAL TID PRN 02/04/19 02/09/21 History powder olmesartan 20 mg tablet 10 mg PO QAM 02/04/19 02/09/21 History fluticasone furoate 100 1 inh INHALATION QAM 12/25/19 02/09/21 History mcg/actuation blister powder for inhalation (Arnuity Ellipta) albuterol sulfate 2.5 mg CONTINUOUS NEBULIZATION Q4H 12/23/20 02/09/21 History PRN furosemide 20 mg tablet 20 mg PO DAILY PRN 12/23/20 02/09/21 History gentamicin 0.3 % eye drops 1 drp OPL Q4H PRN 12/23/20 02/09/21 History ipratropium bromide 0.02 % 2.5 ml CONTINUOUS NEBULIZATION 12/23/20 02/09/21 History solution for inhalation .Q6-8H PRN ketoconazole 2 % topical cream 1 applic TOPICAL DAILY PRN 12/23/20 02/09/21 History levothyroxine 150 mcg tablet 150 mcg PO QAM 12/23/20 02/09/21 History liraglutide 0.6 mg/0.1 mL (18 mg/3 1.8 mg SUBCUT DAILY 12/23/20 02/09/21 History mL) subcutaneous pen injector (Vobitoza 3-Chandler) metformin 1,000 mg tablet 1,000 mg PO BIDM 12/23/20 02/09/21 History mupirocin 2 % topical ointment 1 applic TOPICAL TID PRN 12/23/20 02/09/21 History warfarin 5 mg tablet (Jantoven) 5 mg PO 5XWK 12/23/20 02/09/21 History warfarin 5 mg tablet (Jantoven) 7.5 mg PO 2XWK 12/23/20 02/09/21 History benzonatate 100 mg capsule 100 mg PO TID PRN #20 cap 02/02/21 02/09/21 Rx furosemide 40 mg tablet (Lasix) 40 mg PO DAILY PRN #7 tab 02/02/21 02/09/21 Rx ondansetron 4 mg disintegrating 4 mg PO Q8H PRN #30 tab 02/02/21 02/09/21 Rx tablet Vitamin B Complex Elixir 1 ml PO DAILY 02/09/21 02/09/21 History Past Med/Surg History Medical History Anxiety Asthma rare use PRN inh Benign hypertension (06/29/12) COPD (chronic obstructive pulmonary disease) inhaler daily/prn Depression Diabetes mellitus, type 2 IDDM Gastroesophageal reflux disease (06/29/12) Herniated disc Hiatal hernia Hypothyroidism Migraine Non-alcoholic cirrhosis Follows with [facility] On home oxygen therapy 2.5L via CPAP at night Sleep apnea CPAP with 2.5L Surgical History History of colonoscopy with polypectomy History of liver biopsy 12/2018 History of partial hysterectomy History of right breast biopsy benign History of tooth extraction most teeth removed Hx of tonsillectomy Hx of tubal ligation Family History Father Family history of diabetes mellitus Grandmother (Paternal) Family history of diabetes mellitus Son Family history of diabetes mellitus Other Cancer Heart disease Hypertension Lung disease No family history of adverse response to anesthesia Social History Smoking Status: Current every day smoker Tobacco Type: Cigarettes Cigarettes Per Day: 2; Second Hand Exposure: Yes; Do You Dip or Chew Tobacco: No; Tobacco Cessation Education Requested by Patient: No Hx Alcohol Use: No Hx Substance Use: No Preferred Language: Armenian Communication Ability: Unable Communication Ability Comment: unable d/t condition [employer] Required: No Beliefs That Will Affect Care: None marital status: Current Living Situation: Family Current Living Situation Comment: son lives with pt current occupational status: disabled How many Children do You have: 3 Other Information That Helps Us Care for You: No Feels Safe at Home: Yes Safety Concerns: Feels Safe At This Time Assistive Devices: Cane, Denture - Upper and Glasses Review of Systems Review of Systems: Unobtainable due to endotracheal tube Physical Exam Constitutional: + ill appearing, + morbidly obese, + altered mental status and + mechanically ventilated ENMT: +ETT in place Respiratory: Auscultation: + diminished lung sounds and + rhonchi Cardiovascular: Rate/Rhythm: regular rate and regular rhythm Heart Sounds: + murmur Extremities: + edema (pitting edema to abdomen) Gastrointestinal (Abdomen): Inspection/Auscultation: + abdomen distended, normal bowel sounds and + significant pannus Skin: no jaundice Neurologic: sedated and intubated - grimaces to sternal rub Results & Data Results & Data ([facility]) Vital Signs (Past 12 Hours) Vital Signs Temp Pulse Pulse Resp BP BP Pulse Ox 02/09/21 09:36 32.7 C L 98 H 22 88/45 L 94 02/09/21 09:30 32.7 C L 98 H 22 93/44 L 93 02/09/21 09:25 32.7 C L 97 H 22 93/43 L 94 02/09/21 09:20 32.7 C L 97 H 22 90/44 L 95 02/09/21 09:15 32.6 C L 96 H 22 89/43 L 95 02/09/21 09:10 32.6 C L 97 H 21 99/46 L 95 02/09/21 09:05 32.6 C L 98 H 20 112/50 L 96 02/09/21 09:00 32.6 C L 97 H 21 103/46 L 97 02/09/21 08:55 32.6 C L 96 H 22 105/47 L 96 02/09/21 08:50 32.7 C L 96 H 22 106/45 L 97 02/09/21 08:45 32.7 C L 92 H 22 101/47 L 97 02/09/21 08:40 32.7 C L 91 H 22 99/43 L 95 02/09/21 08:35 32.7 C L 89 22 91/39 L 94 02/09/21 08:30 32.7 C L 90 22 94/39 L 94 02/09/21 08:25 32.8 C L 93 H 23 126/47 L 94 02/09/21 08:20 32.8 C L 91 H 23 83/38 L 97 02/09/21 08:15 32.8 C L 91 H 23 89/54 L 97 02/09/21 08:10 32.8 C L 91 H 24 81/63 L 97 02/09/21 08:05 32.7 C L 87 23 77/30 L 96 02/09/21 07:55 32.4 C L 89 22 85/36 L 97 02/09/21 07:34 32.6 C L 90 28 H 134/54 L 97 02/09/21 07:22 18 02/09/21 07:15 93 H 29 H 100 02/09/21 06:56 88 23 51/44 L 91 Laboratory Results Laboratory Results - last 24 hr 02/09/21 02/09/21 02/09/21 06:50 07:02 07:10 WBC RBC Hgb POC Hgb 6.5 L* Hct POC Hct 19 L* MCV MCH MCHC RDW Std Deviation RDW Coeff of Tegan Plt Count MPV Absolute Nucleated RBC Nucleated RBC % (auto) Neutrophils % (Manual) Lymphocytes % (Manual) Monocytes % (Manual) Eosinophils % (Manual) Metamyelocytes % (Man) Neutrophils # (Manual) Total Absolute Neuts Lymphocytes # (Manual) Total Abs Lymphocytes Monocytes # (Manual) Eosinophils # (Manual) Metamyelocytes # (Man) Hypochromasia Echinocytes Haptoglobin PT INR APTT PTT Ratio POC Sodium 136 Sodium POC Potassium 6.4 H* Potassium POC Chloride 110 Chloride Carbon Dioxide POC Total CO2 13 L Anion Gap POC Anion Gap 20.0 POC BUN 49 H BUN Creatinine POC Creatinine 1.7 H Est Cr Clr Drug Dosing Est GFR ( Amer) Est GFR (Non-Af Amer) BUN/Creatinine Ratio Glucose POC Glucose 57 L* POC Glucose (other) 53 L* Lactate Calcium POC Ioniz Calcium Jw 1.05 L Magnesium Total Bilirubin AST ALT Alkaline Phosphatase Lactate Dehydrogenase Troponin I Total Protein Albumin Globulin Albumin/Globulin Ratio Procalcitonin Urine Color Urine Appearance Urine pH Ur Specific [place] Urine Protein Urine Glucose (UA) Urine Ketones Urine Blood Urine Nitrite Urine Bilirubin Urine Urobilinogen Ur Leukocyte Esterase Urine WBC (Auto) Urine RBC (Auto) U Hyaline Cast (Auto) U Epithel Cells (Auto) Urine Bacteria (Auto) POC Stool Occult Blood Positive A SARS-CoV-2 (PCR) Blood Type Antibody Screen Crossmatch 02/09/21 02/09/21 02/09/21 07:15 07:15 07:15 WBC 16.69 H RBC 2.01 L Hgb 4.9 L* POC Hgb Hct 16.5 L* POC Hct MCV 82.1 MCH 24.4 L MCHC 29.7 L RDW Std Deviation 62.5 H RDW Coeff of Tegan 20.7 H Plt Count 158 MPV 9.1 Absolute Nucleated RBC 0.05 H Nucleated RBC % (auto) 0.3 Neutrophils % (Manual) 92.2 Lymphocytes % (Manual) 2.6 Monocytes % (Manual) 2.6 Eosinophils % (Manual) 0.9 Metamyelocytes % (Man) 1.7 Neutrophils # (Manual) 15.39 H Total Absolute Neuts 15.39 H Lymphocytes # (Manual) 0.43 L Total Abs Lymphocytes 0.43 L Monocytes # (Manual) 0.43 Eosinophils # (Manual) 0.15 Metamyelocytes # (Man) 0.28 H Hypochromasia Present Echinocytes 1+ Haptoglobin PT 21.5 H INR 2.3 H APTT 37.0 H PTT Ratio 1.4 POC Sodium Sodium 138 POC Potassium Potassium 6.1 H* POC Chloride Chloride 111 H Carbon Dioxide 15 L POC Total CO2 Anion Gap 12.0 H POC Anion Gap POC BUN BUN 37 H Creatinine 1.76 H POC Creatinine Est Cr Clr Drug Dosing Not Reportable Est GFR ( Amer) 35.3 Est GFR (Non-Af Amer) 30.5 BUN/Creatinine Ratio 21.0 H Glucose 162 H POC Glucose POC Glucose (other) Lactate Calcium 8.2 L POC Ioniz Calcium Jw Magnesium 2.4 Total Bilirubin 1.1 H AST 473 H ALT 216 H Alkaline Phosphatase 124 H Lactate Dehydrogenase Troponin I 0.067 H* Total Protein 4.0 L Albumin 1.3 L Globulin 2.7 Albumin/Globulin Ratio 0.5 L Procalcitonin Urine Color Urine Appearance Urine pH Ur Specific [place] Urine Protein Urine Glucose (UA) Urine Ketones Urine Blood Urine Nitrite Urine Bilirubin Urine Urobilinogen Ur Leukocyte Esterase Urine WBC (Auto) Urine RBC (Auto) U Hyaline Cast (Auto) U Epithel Cells (Auto) Urine Bacteria (Auto) POC Stool Occult Blood SARS-CoV-2 (PCR) Blood Type Antibody Screen Crossmatch 02/09/21 02/09/21 02/09/21 07:15 07:15 07:15 WBC RBC Hgb POC Hgb Hct POC Hct MCV MCH MCHC RDW Std Deviation RDW Coeff of Tegan Plt Count MPV Absolute Nucleated RBC Nucleated RBC % (auto) Neutrophils % (Manual) Lymphocytes % (Manual) Monocytes % (Manual) Eosinophils % (Manual) Metamyelocytes % (Man) Neutrophils # (Manual) Total Absolute Neuts Lymphocytes # (Manual) Total Abs Lymphocytes Monocytes # (Manual) Eosinophils # (Manual) Metamyelocytes # (Man) Hypochromasia Echinocytes Haptoglobin PT INR APTT PTT Ratio POC Sodium Sodium POC Potassium Potassium POC Chloride Chloride Carbon Dioxide POC Total CO2 Anion Gap POC Anion Gap POC BUN BUN Creatinine POC Creatinine Est Cr Clr Drug Dosing Est GFR ( Amer) Est GFR (Non-Af Amer) BUN/Creatinine Ratio Glucose POC Glucose POC Glucose (other) Lactate 11.2 H* Calcium POC Ioniz Calcium Jw Magnesium Total Bilirubin AST ALT Alkaline Phosphatase Lactate Dehydrogenase Troponin I Total Protein Albumin Globulin Albumin/Globulin Ratio Procalcitonin 0.16 Urine Color Urine Appearance Urine pH Ur Specific [place] Urine Protein Urine Glucose (UA) Urine Ketones Urine Blood Urine Nitrite Urine Bilirubin Urine Urobilinogen Ur Leukocyte Esterase Urine WBC (Auto) Urine RBC (Auto) U Hyaline Cast (Auto) U Epithel Cells (Auto) Urine Bacteria (Auto) POC Stool Occult Blood SARS-CoV-2 (PCR) Blood Type O Positive Antibody Screen NEGATIVE Crossmatch See Detail 02/09/21 02/09/21 02/09/21 07:15 07:15 08:14 WBC RBC Hgb POC Hgb Hct POC Hct MCV MCH MCHC RDW Std Deviation RDW Coeff of Tegan Plt Count MPV Absolute Nucleated RBC Nucleated RBC % (auto) Neutrophils % (Manual) Lymphocytes % (Manual) Monocytes % (Manual) Eosinophils % (Manual) Metamyelocytes % (Man) Neutrophils # (Manual) Total Absolute Neuts Lymphocytes # (Manual) Total Abs Lymphocytes Monocytes # (Manual) Eosinophils # (Manual) Metamyelocytes # (Man) Hypochromasia Echinocytes Haptoglobin Pending PT INR APTT PTT Ratio POC Sodium Sodium POC Potassium Potassium POC Chloride Chloride Carbon Dioxide POC Total CO2 Anion Gap POC Anion Gap POC BUN BUN Creatinine POC Creatinine Est Cr Clr Drug Dosing Est GFR ( Amer) Est GFR (Non-Af Amer) BUN/Creatinine Ratio Glucose POC Glucose POC Glucose (other) Lactate Calcium POC Ioniz Calcium Jw Magnesium Total Bilirubin AST ALT Alkaline Phosphatase Lactate Dehydrogenase 902 H Troponin I Total Protein Albumin Globulin Albumin/Globulin Ratio Procalcitonin Urine Color Urine Appearance Urine pH Ur Specific [place] Urine Protein Urine Glucose (UA) Urine Ketones Urine Blood Urine Nitrite Urine Bilirubin Urine Urobilinogen Ur Leukocyte Esterase Urine WBC (Auto) Urine RBC (Auto) U Hyaline Cast (Auto) U Epithel Cells (Auto) Urine Bacteria (Auto) POC Stool Occult Blood SARS-CoV-2 (PCR) Pending Blood Type Antibody Screen Crossmatch 02/09/21 02/09/21 02/09/21 08:14 08:26 08:40 WBC RBC Hgb POC Hgb Hct POC Hct MCV MCH MCHC RDW Std Deviation RDW Coeff of Tegan Plt Count MPV Absolute Nucleated RBC Nucleated RBC % (auto) Neutrophils % (Manual) Lymphocytes % (Manual) Monocytes % (Manual) Eosinophils % (Manual) Metamyelocytes % (Man) Neutrophils # (Manual) Total Absolute Neuts Lymphocytes # (Manual) Total Abs Lymphocytes Monocytes # (Manual) Eosinophils # (Manual) Metamyelocytes # (Man) Hypochromasia Echinocytes Haptoglobin PT INR APTT PTT Ratio POC Sodium Sodium POC Potassium Potassium POC Chloride Chloride Carbon Dioxide POC Total CO2 Anion Gap POC Anion Gap POC BUN BUN Creatinine POC Creatinine Est Cr Clr Drug Dosing Est GFR ( Amer) Est GFR (Non-Af Amer) BUN/Creatinine Ratio Glucose POC Glucose 123 H POC Glucose (other) Lactate Cancelled Calcium POC Ioniz Calcium Jw Magnesium Total Bilirubin AST ALT Alkaline Phosphatase Lactate Dehydrogenase Troponin I Total Protein Albumin Globulin Albumin/Globulin Ratio Procalcitonin Urine Color Dark Yellow Urine Appearance Clear Urine pH 5.0 Ur Specific [place] 1.020 Urine Protein Trace H Urine Glucose (UA) Negative Urine Ketones Trace H Urine Blood Negative Urine Nitrite Negative Urine Bilirubin Negative Urine Urobilinogen Negative Ur Leukocyte Esterase Trace H Urine WBC (Auto) 1-5 Urine RBC (Auto) 5-10 H U Hyaline Cast (Auto) 5-10 H U Epithel Cells (Auto) >30 H Urine Bacteria (Auto) Negative POC Stool Occult Blood SARS-CoV-2 (PCR) Blood Type Antibody Screen Crossmatch Diagnostic Findings Chest X-ray 02/09/21 - IMPRESSION:1. Tip of endotracheal tube 3.3 cm above the rena. 2. Technically difficult study to obtain. Apparent left mid and basilar airspace opacity is likely artifactual although consolidation could appear similar. This can be assessed on follow-up radiographs. 3. Cardiomegaly with pulmonary vascular congestion. Medications Administered Midazolam HCl (Versed) 125 mg in 250 mls @ 3 mls/hr IV .[id number] EDILMA; Protocol Stop: 03/11/21 08:29 Last Titration: 02/09/21 09:11 Dose: 1.5 mg/hr, 3 mls/hr Documented by: [id number] Cosigned by: [id number] Admin: 02/09/21 08:47 Dose: 1 mg/hr, 2 mls/hr Documented by: [id number] Cosigned by: [id number] Discontinued Medications Dextrose (Dextrose 50% 50 Ml Syringe) Confirm Administered Dose 50 ml IV .STK- MED ONE Stop: 02/09/21 06:54 Last Admin: 02/09/21 07:00 Dose: 50 ml Documented by: [id number] Dextrose (Dextrose 50% 50 Ml Syringe) 50 ml IV NOW STA Stop: 02/09/21 08:16 Last Admin: 02/09/21 08:38 Dose: 50 ml Documented by: [id number] Sodium Chloride (Nss 1000ml) 1,000 mls @ 999 mls/hr IV .Q1H1M EDILMA Stop: 02/09/21 08:15 Last Infusion: 02/09/21 08:21 Dose: 0 mls/hr Documented by: [id number] Admin: 02/09/21 07:20 Dose: 999 mls/hr Documented by: [id number] Pantoprazole Sodium 80 mg/ (Dextrose) 100 mls @ 400 mls/hr IV NOW ONE Stop: 02/09/21 07:24 Last Infusion: 02/09/21 08:17 Dose: 0 mls/hr Documented by: [id number] Admin: 02/09/21 08:02 Dose: 400 mls/hr Documented by: [id number] Propofol (Diprivan) 1,000 mg in 100 mls @ 22.416 mls/hr IV .Q4H28M [facility]; Protocol Stop: 02/12/21 07:44 Last Titration: 02/09/21 08:10 Dose: 0 mcg/kg/min, 0 mls/hr Documented by: [id number] Admin: 02/09/21 07:48 Dose: 20 mcg/kg/min, 22.4 mls/hr Documented by: [id number] Cosigned by: [id number] Phytonadione 10 mg/ Sodium (Chloride) 51 mls @ 102 mls/hr IV ONE ONE Stop: 02/09/21 08:21 Last Infusion: 02/09/21 08:49 Dose: 0 mls/hr Documented by: [id number] Admin: 02/09/21 08:19 Dose: 102 mls/hr Documented by: [id number] Meropenem 500 mg/ Syringe 10 mls @ 2 mls/min IV NOW STA; Protocol Stop: 02/09/21 08:17 Last Admin: 02/09/21 08:44 Dose: 2 mls/min Documented by: [id number] Calcium Gluconate 2,000 mg/ (Sodium Chloride) 70 mls @ 280 mls/hr IV NOW STA Stop: 02/09/21 08:29 Last Admin: 02/09/21 08:53 Dose: 280 mls/hr Documented by: [id number] Insulin Human Regular 10 units (/ Syringe) 10 mls @ 30 mls/min IV NOW STA Stop: 02/09/21 08:17 Last Admin: 02/09/21 08:39 Dose: 30 mls/min Documented by: [id number] Cosigned by: [id number] Lidocaine HCl (Lidocaine 2% Local 50 Ml Vial) Confirm Administered Dose 50 ml .ROUTE .STK-MED ONE Stop: 02/09/21 07:00 Last Admin: 02/09/21 09:12 Dose: 4 ml Documented by: [id number] Midazolam HCl (Midazolam Hcl 1 Mg/Ml 2ml Vial) Confirm Administered Dose 2 mg .ROUTE .STK-MED ONE Stop: 02/09/21 08:26 Last Admin: 02/09/21 08:26 Dose: 2 mg Documented by: [id number] Miscellaneous (Rapid Sequence Induction Bag) Confirm Administered Dose 1 ea .ROUTE .STK-MED ONE Stop: 02/09/21 07:02 Last Admin: 02/09/21 09:15 Dose: 1 ea Documented by: [id number] Propofol (Propofol Iv Emulsion 10 Mg/Ml 100 Ml Vial) Confirm Administered Dose 1,000 mg IV .STK-MED ONE Stop: 02/09/21 07:37 Last Admin: 02/09/21 07:49 Dose: Not Given Documented by: [id number] Propofol (Propofol Bolus From Bag) 20 mg IV Q5M PRN PRN Reason: Sedation Stop: 02/12/21 07:43 Last Admin: 02/09/21 07:53 Dose: 20 mg Documented by: [id number] Cosigned by: [id number] Code Status & VTE Plan VTE Prophylaxis Plan VTE Prophylaxis will be ordered: No Supervising Physician Co-Signing Physician Notes Pt is a 60 y/o F with hx of Cirrhosis (2/2 COELHO), IDDM, COPD on home oxygen, CKD, PAN, hypothyroidism, Recent hx of LLE provoked DVT (on Coumadin started on 07/2020), recent hospital admission for elevated d-dimer and anemia with melana brought in by ambulance after she was found unresponsive. EMS found bloody BM at home and they are unsure how long pt has been unresponsive. Last Admission: Acute DVT and PE were ruled out. Hgb remains stable therefore outpt EGD was recommended. Pt failed to follow up with GI and continues to take Coumadin on discharge. Exam: Intubated and sedated Abd: Obese abd, edema of the b/l lateral abd wall MSK: severe pitting edema of b/l legs up to the hips A/P: Encephalopathy with possible fall: -CT head: no acute bleeding -will get BCx, UCx - due to elevated WBC and Hypothermia pt would benefit from broad spectrum abx -Might consider MRI brain depending pts response to current treatment - pt is currently intubated and on pressors for hypotension GI bleeding with elevated INR: -s/p Vit K, FFP and receiving 2 Units of PRBC -started on Protonic gtt -GI consulted: Octreotide gtt, Panculture, CT abd/pelvis - will monitor CBC HyperK+: -s/p Dextrose and insulin -will monitor electrolytes Troponiemia: -EKG: difficult EKG to interpet -will trend Trop -possible repeat of echo Agree with A/P by Caryn Zepeda PA-C
[2021-02-09] MEDS ORDERED: DEXTROSE 50% 50 ML SYRINGE IV PRN (09:49)
[2021-02-09] MEDS ORDERED: CARBOHYDRATES FOR HYPOGLYCEMIA PO PRN (09:49)
[2021-02-09] MEDS ORDERED: GLUCAGON FOR INJ 1 MG VIAL SQ PRN (09:49)
[2021-02-09] MEDS ORDERED: DC ALL PREVIOUSLY ORDERED DIABETES MEDS ONE (09:49)
[2021-02-09] MEDS ORDERED: GLUCOSE 10 TABS/TUBE PO PRN (09:49)
[2021-02-09] MEDS ORDERED: PHARMACY GLYCEMIC MGMT CONSULT PRN (09:49)
[2021-02-09] MEDS ORDERED: GLUCOSE 40% GEL 15 GM TUBE PO PRN (09:49)
[2021-02-09] MEDS ORDERED: FUROSEMIDE 40 MG/4 ML VIAL IV ONE ×2 (10:06→10:07)
[2021-02-09] MEDS ORDERED: NOREPINEPHRINE/D5W 8 MG/508 ML BAG IV SCH (10:15)
--- NOTE | 2021-02-09 10:25 | Gastrointestinal Consultation ---
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 She became unresponsive and intubated in ED. Noted high WBC, lactate, hypotension, hypothermia, anasarca likely related to sepsis. She is severely anemic and had been on Coumadin but INR 2.3, Plt normal, and BUN not significantly elevated compared to Cr. Suspect she may have ischemic colitis and ischemic hepatopathy. Esophageal varices bleeding less likely but would cover for this. - NPO - PPI bolus and gtt - Octreotide bolus and gtt - Broad spectrum antibx - F/U panculture - CT head, abd/pelvis - Reverse INR, resuscitate with IVF, FFP + blood transfusion. - No role in urgent endoscopy today which would not benefit her nor add to plan of her care today. Needs to be stabilized and we will continue to re-eval for timing of possible endoscopy. Supervising Physician Co-Signing Physician Notes Attending attestation I have seen, examined this patient, and agree with the findings and above by our mid-level provider JONATHAN Mcmahan, with the following additions: Presentation of ams, hypothermia, anasarca, elevated WBC count, elevated lactate with noted concern for rectal bleed prior to arrival. It appears that GI bleed is a component of presentation but given above, not primary issue, and no evidence or history to suggest acute ongoing bleeding. No bowel output since presentation. BP prior to finishing 2nd unit on my exam SBP of 117 and Pulse of 88. Agree with volume with PRBC's and goal of 8-9, presentation no c/w acute upper bleed, possible etiolgies such as ischemic colitis given latate, therefore, agree with CT scan as ordered. Continue supportive care, transfusion, broad spectrum abx, while being recussitated no urgent role for endoscopy that would likely be therapeutic. IV PPI Gtt CT Scan IV octreotide GTT Will reassess for role of endoscopy during hospitalization Call with questions or clinical change of presentation History of Present Illness Reason for Consultation: GI bleed Requesting Physician: Dr. Jason Cui Attending Physician: Dr. Dariusz Lynn History of Present Illness Pt is a 60 y/o female w PMHx of chronic DVT (on coumadin), HTN, IDDM2, COPD, PAN on CPAP, NAFLD cirrhosis, active tobacco use, and chronic lymphedema presents after a fall at home. EMS found her to be lethargic, having rectal bleeding w blood around her. She became unresponsive and intubated in ED. Workup notable for hypothermia, hypotension, anemia w H/H of 4.9/16.5., WBC 16, lactate 11, PT/INR 21/2.3, K 6.4, BUN/Cr 37/1.7. LFTs: Tbili 1.1, AST/ALT 473/216, alk phos 124. FOBT +. CXR showed L consolidation, cardiomegaly with pulmonary vascular congestion. COVID negative, blood cx pending. Noted on previous admission that she was advised to stop Coumadin for hx of DVT since she completed 6 month's therapy but she continued taking. She's never had EGD before. Previous colonoscopies in 2005, 2015, 2016 w signs of diverticulosis and otherwise poor prep. Allergies Allergy/AdvReac Type Severity Reaction Status Date / Time Cephalosporins Allergy Severe TROUBLE Verified 02/09/21 08:35 BREATHING erythromycin base Allergy Severe TROUBLE Verified 02/09/21 08:35 BREATHING Penicillins Allergy Severe TROUBLE Verified 02/09/21 08:35 BREATHING amoxicillin Allergy Intermediate HIVES/SWELL Verified 02/09/21 08:35 ING clavulanic acid Allergy Intermediate HIVES/SWELL Verified 02/09/21 08:35 [From Augmentin] ING sulfamethoxazole Allergy Intermediate ITCHY HIVES Verified 02/09/21 08:35 [From Bactrim] trimethoprim [From Bactrim] Allergy Intermediate ITCHY HIVES Verified 02/09/21 08:35 ciprofloxacin Allergy Mild itch Verified 02/09/21 08:35 cephalexin Allergy Unknown ON [facility] MED Verified 02/09/21 08:35 LIST rofecoxib Allergy Unknown ON [facility] MED Verified 02/09/21 08:35 LIST adhesive AdvReac Intermediate WELTS AND Verified 02/09/21 08:35 BURNING meloxicam AdvReac Unknown STOMACH Verified 12/23/20 22:19 UPSET Home Medications Medication Instructions Recorded Confirmed Type albuterol sulfate 90 mcg/actuation 2 puff INHALATION Q6H PRN 05/19/18 02/09/21 History aerosol inhaler (Ventolin HFA) aspirin 81 mg chewable tablet 81 mg PO HS 05/19/18 02/09/21 History (Aspirin Childrens) cholecalciferol (vitamin D3) 50 2,000 unit PO QAM 05/19/18 02/09/21 History mcg (2,000 unit) tablet insulin aspart U-100 100 unit/mL See Rx Instructions .ROUTE .COMPLEX 05/19/18 02/09/21 History (3 mL) subcutaneous pen (Novolog Flexpen U-100 Insulin aspart) insulin glargine 100 unit/mL (3 60 - 68 unit SUBCUT HS 05/19/18 02/09/21 History mL) subcutaneous pen (Lantus Solostar U-100 Insulin) umeclidinium 62.5 mcg-vilanterol 1 inh INHALATION QAM 05/19/18 02/09/21 History 25 mcg/actuation powdr for inhalation (Anoro Ellipta) guaifenesin 600 mg tablet, 600 - 1,200 mg PO DAILY PRN 02/04/19 02/09/21 History extended release 12 hr (Mucinex) ketoconazole 2 % shampoo 2 % TOPICAL WK 02/04/19 02/09/21 History nystatin 100,000 unit/gram topical 1 applic TOPICAL TID PRN 02/04/19 02/09/21 History powder olmesartan 20 mg tablet 10 mg PO QAM 02/04/19 02/09/21 History fluticasone furoate 100 1 inh INHALATION QAM 12/25/19 02/09/21 History mcg/actuation blister powder for inhalation (Arnuity Ellipta) albuterol sulfate 2.5 mg CONTINUOUS NEBULIZATION Q4H 12/23/20 02/09/21 History PRN furosemide 20 mg tablet 20 mg PO DAILY PRN 12/23/20 02/09/21 History gentamicin 0.3 % eye drops 1 drp OPL Q4H PRN 12/23/20 02/09/21 History ipratropium bromide 0.02 % 2.5 ml CONTINUOUS NEBULIZATION 12/23/20 02/09/21 Hist ory solution for inhalation .Q6-8H PRN ketoconazole 2 % topical cream 1 applic TOPICAL DAILY PRN 12/23/20 02/09/21 History levothyroxine 150 mcg tablet 150 mcg PO QAM 12/23/20 02/09/21 History liraglutide 0.6 mg/0.1 mL (18 mg/3 1.8 mg SUBCUT DAILY 12/23/20 02/09/21 History mL) subcutaneous pen injector (Victoza 3-Chandler) metformin 1,000 mg tablet 1,000 mg PO BIDM 12/23/20 02/09/21 History mupirocin 2 % topical ointment 1 applic TOPICAL TID PRN 12/23/20 02/09/21 History warfarin 5 mg tablet (Jantoven) 5 mg PO 5XWK 12/23/20 02/09/21 History warfarin 5 mg tablet (Jantoven) 7.5 mg PO 2XWK 12/23/20 02/09/21 History benzonatate 100 mg capsule 100 mg PO TID PRN #20 cap 02/02/21 02/09/21 Rx furosemide 40 mg tablet (Lasix) 40 mg PO DAILY PRN #7 tab 02/02/21 02/09/21 Rx ondansetron 4 mg disintegrating 4 mg PO Q8H PRN #30 tab 02/02/21 02/09/21 Rx tablet Vitamin B Complex Elixir 1 ml PO DAILY 02/09/21 02/09/21 History Patient History Medical History (Updated 02/09/21 @ 10:31 by JONATHAN Watts) Anxiety Asthma rare use PRN inh COPD (chronic obstructive pulmonary disease) inhaler daily/prn Depression Diabetes mellitus, type 2 IDDM Herniated disc Hiatal hernia Hypothyroidism Migraine Non-alcoholic cirrhosis Follows with [facility] On home oxygen therapy 2.5L via CPAP at night Sleep apnea CPAP with 2.5L Surgical History History of colonoscopy with polypectomy History of liver biopsy 12/2018 History of partial hysterectomy History of right breast biopsy benign History of tooth extraction most teeth removed Hx of tonsillectomy Hx of tubal ligation Family History Father Family history of diabetes mellitus Grandmother (Paternal) Family history of diabetes mellitus Son Family history of diabetes mellitus Other Cancer Heart disease Hypertension Lung disease No family history of adverse response to anesthesia Social History Smoking Status: Unknown if ever smoked Tobacco Type: Cigarettes Cigarettes Per Day: 2; Second Hand Exposure: No; Hx Alcohol Use: No Hx Substance Use: No Preferred Language: [place] Communication Ability: Effective Manager Of Medical Required: No Beliefs That Will Affect Care: None marital status: Current Living Situation: Family Current Living Situation Comment: son lives with pt current occupational status: disabled How many Children do You have: 3 Feels Safe at Home: Yes Assistive Devices: Cane, CPAP, Oxygen - at Night and Walker Review of Systems Review of Systems: Pt intubated, unable to obtain from pt Physical Exam Constitutional: + morbidly obese and + mechanically ventilated ENMT: external ear and nose normal, oropharynx normal Pt is intubated Respiratory: Intubated, diminished bilateral lung sounds Cardiovascular: RRR, no murmur, + anasarca noted Gastrointestinal (Abdomen): BS hypoactive, abd large, soft, no signs of distress on palpation Skin: no jaundice Neurologic: sedated, Lymphatic: + lymphedema Results & Data ([facility]) Vital Signs (Past 12 Hours) Vital Signs Temp Pulse Pulse Resp BP BP Pulse Ox 02/09/21 10:00 33.0 C L 96 H 22 79/39 L 92 02/09/21 09:55 32.8 C L 96 H 22 93 02/09/21 09:50 32.8 C L 97 H 22 93/42 L 93 02/09/21 09:45 32.8 C L 97 H 22 87/42 L 93 02/09/21 09:40 32.7 C L 98 H 22 83/43 L 94 02/09/21 09:36 32.7 C L 98 H 22 88/45 L 94 02/09/21 09:35 32.7 C L 98 H 22 88/45 L 94 02/09/21 09:30 32.7 C L 98 H 22 93/44 L 93 02/09/21 09:25 32.7 C L 97 H 22 93/43 L 94 02/09/21 09:20 32.7 C L 97 H 22 90/44 L 95 02/09/21 09:15 32.6 C L 96 H 22 89/43 L 95 02/09/21 09:10 32.6 C L 97 H 21 99/46 L 95 02/09/21 09:05 32.6 C L 98 H 20 112/50 L 96 02/09/21 09:00 32.6 C L 97 H 21 103/46 L 97 02/09/21 08:55 32.6 C L 96 H 22 105/47 L 96 02/09/21 08:50 32.7 C L 96 H 22 106/45 L 97 02/09/21 08:45 32.7 C L 92 H 22 101/47 L 97 02/09/21 08:40 32.7 C L 91 H 22 99/43 L 95 02/09/21 08:35 32.7 C L 89 22 91/39 L 94 02/09/21 08:30 32.7 C L 90 22 94/39 L 94 02/09/21 08:25 32.8 C L 93 H 23 126/47 L 94 02/09/21 08:20 32.8 C L 91 H 23 83/38 L 97 02/09/21 08:15 32.8 C L 91 H 23 89/54 L 97 02/09/21 08:10 32.8 C L 91 H 24 81/63 L 97 02/09/21 08:05 32.7 C L 87 23 77/30 L 96 02/09/21 07:55 32.4 C L 89 22 85/36 L 97 02/09/21 07:34 32.6 C L 90 28 H 134/54 L 97 02/09/21 07:22 18 02/09/21 07:15 93 H 29 H 100 02/09/21 06:56 88 23 51/44 L 91 (1) Anemia Anemia type: unspecified type Qualified Code(s): D64.9 - Anemia, unspecified (2) Fluid overload Hypervolemia type: unspecified Qualified Code(s): E87.70 - Fluid overload, unspecified
[2021-02-09] MEDS ORDERED: OCTREOTIDE ACETATE 50 MCG in SYRINGE 9.5 ML IV STA (10:29)
[2021-02-09 11:03] LABS: Thyroid Stimulating Hormone 1.42 uIu/ml (0.300-4.500)
[2021-02-09 11:20] LABS: Base Excess VBG -14.5 mEq/L; Oxygen Saturation VBG 87.8 %; pH VBG 7.15 (7.36-7.41)
[2021-02-09] MEDS ORDERED: INSULIN ASPART 100 UNITS/ML 3 ML PEN SC SCH (11:30)
--- NOTE | 2021-02-09 11:35 | Emergency Department Note ---
Impression & Plan UGIB (upper gastrointestinal bleed), Acute blood loss anemia, Acute alteration in mental status, Acute hypotension, Chronic anticoagulation ED Provider Note CHIEF COMPLAINT: Hypotension, altered mental status, respiratory failure HISTORY OF PRESENT ILLNESS: This 60-year-old female patient presents to the emergency department who presents to the emergency department with complaints of altered mentation, hypotension. Patient apparently had a fall this morning and EMS was contacted presumably by her son. She had a bloody bowel movement while being transported by EMS. Patient was noted to be hypotensive and oxygen requiring. She has unable to answer any questions at this time. Per review of records, the patient is anticoagulated on Coumadin. She was recently hospitalized for a GI bleed. She was advised to stop her Coumadin. It is unclear if this actually occurred. Patient was seen in the emergency department 02/02/21 and advised to follow-up with the PCP. Patient son is not available by phone at this time. History is significantly limited due to patient's inability to answer questions/clinical acuity. REVIEW OF SYSTEMS: Unable to obtain review of systems secondary to the patient's mental status/clinical acuity ALLERGIES: see below MEDICATIONS: see below PMH: see below SOCIAL HISTORY: see below DDx: Infection, dehydration, metabolic abnormality, hypo/hyperglycemia, electrolyte disturbance, anemia, hypoxia, cardiac sources, intracerebral event, toxicologic, neurologic, as well as other pathologies. PHYSICAL EXAM: Vital signs reviewed. General: Acute and chronically ill-appearing 60-year-old female, morbidly obese, obtunded with increased respiratory effort HEENT: No scleral icterus, PERRLA, neck supple. Atraumatic. Cardiovascular: Regular rate and rhythm, no extra sounds. Pulmonary: Clear to auscultation bilaterally, normal work of breathing. Abdomen: Soft, morbidly obese, exam limited by body habitus, Musculoskeletal: Atraumatic, marked peripheral edema. Neurologic: Patient obtunded, unable to follow commands, nonverbal, occasionally opens eyes to commands Skin: Warm, dry, no rash EMERGENCY DEPARTMENT COURSE/MDM: This patient was evaluated and appeared to be critically ill. Given the patient's morbidly obese status with a BMI of 70 and significant alteration mental status with hypotension and likely GI bleed, intubation was felt to be in the patient's best interest. Please see my procedure note below. Intravenous access was difficult to obtain, the first 2 peripheral lines were ripped out by the patient in her obtunded state. Multiple attempts at peripheral access were attempted and given the patient's body habitus, central access quickly was difficult. An IO was inserted in the right tibia without difficulty. An 18 in the left forearm was obtained by the IV team. Patient was given IV dextrose for her hypoglycemia. She was noted to be hyperkalemic. IV fluids were initiated. Laboratory work reveals a hemoglobin of 4.9. INR is 2.3. Patient was given 10 units of IV vitamin K and typed and crossed for 2 units of PRBCs, under emergent two-physician consent this was transfused. IV Protonix was ordered. Patient did have a large melanotic stool. Consultation was placed with Dr. Rene of hematology who recommends FFP. Patient remained somewhat hypoxic and hypotensive, she was repositioned onto her side to remove some of the pressure of the obesity hypoventilation. 40 of IV Lasix was ordered in addition to Levophed drip. Patient will require additional transfusion. Patient's lactate is noted to be 11, patient was covered with IV meropenem due to her allergies to penicillin and cephalosporins. Consultation with the hospitalist service, intensive care, Dr. Bentley, gastroenterology were all placed. Multiple attempts to contact the patient's son were made however he did not answer, a message was left. He did eventually called back and spoke with the hospitalist service. Patient has tested Covid negative and will be transferred to the ICU for further management. MONITORING: An order for cardiac monitoring was placed and the patient is noted to be in a sinus rhythm at 88 beats per minute. RADIOLOGY: See below EKG: Likely sinus rhythm however poor quality baseline for interpretation. Significant amount of artifact. Prolonged QTC at 555. Nonspecific ST changes. Low voltage. PROCEDURE: Endotracheal Intubation Indication alteration in mental status, respiratory failure The patient was on 100% oxygen via NRB prior to the procedure. Suction, airway equipment, RSI drugs, respiratory equipment, and appropriate personnel were prepared prior to the initiation of the procedure. A time out was taken. Induction was performed with 100 mg of succinylcholine and 20 mg of etomidate. After observing the clinical benefit of the medications, the airway was easily visualized utilizing glide scope a 7.5 size ETT tube was placed atraumatically to 23 cm using standard technique. The cuff inflated without signs of malfunction. There were bilateral breath sounds, positive colormetric change, no gastric sounds, a good capnography waveform, and post procedure pulse oximetry was 98%. Post intubation sedation was administered using propofol. There were no complications. I have personally spent greater than 75 minutes of critical care time in the direct management of this patient. This includes bedside care, interpretation of diagnostic studies, and testing, discussion with consultants, patient, and family members, and other required patient management activities. This 75 minutes is in excess of all separately billable procedures. DISPOSITION: ICU Past Med/Surg History Medical History Anxiety Asthma rare use PRN inh Benign hypertension (06/29/12) COPD (chronic obstructive pulmonary disease) inhaler daily/prn Depression Diabetes mellitus, type 2 IDDM Gastroesophageal reflux disease (06/29/12) Herniated disc Hiatal hernia Hypothyroidism Migraine Non-alcoholic cirrhosis Follows with [facility] On home oxygen therapy 2.5L via CPAP at night Sleep apnea CPAP with 2.5L Surgical History History of colonoscopy with polypectomy History of liver biopsy 12/2018 History of partial hysterectomy History of right breast biopsy benign History of tooth extraction most teeth removed Hx of tonsillectomy Hx of tubal ligation Family History Father Family history of diabetes mellitus Grandmother (Paternal) Family history of diabetes mellitus Son Family history of diabetes mellitus Other Cancer Heart disease Hypertension Lung disease No family history of adverse response to anesthesia Social History Smoking Status: Unknown if ever smoked Tobacco Type: Cigarettes Cigarettes Per Day: 2; Second Hand Exposure: No; Hx Alcohol Use: No Hx Substance Use: No Preferred Language: Chinese Communication Ability: Effective Food Service [employer] Required: No Beliefs That Will Affect Care: None marital status: Current Living Situation: Family Current Living Situation Comment: son lives with pt current occupational status: disabled How many Children do You have: 3 Feels Safe at Home: Yes Assistive Devices: Cane, CPAP, Oxygen - at Night and Walker Allergies Allergies Allergy/AdvReac Type Severity Reaction Status Date / Time Cephalosporins Allergy Severe TROUBLE Verified 02/09/21 08:35 BREATHING erythromycin base Allergy Severe TROUBLE Verified 02/09/21 08:35 BREATHING Penicillins Allergy Severe TROUBLE Verified 02/09/21 08:35 BREATHING amoxicillin Allergy Intermediate HIVES/SWELL Verified 02/09/21 08:35 ING clavulanic acid Allergy Intermediate HIVES/SWELL Verified 02/09/21 08:35 [From Augmentin] ING sulfamethoxazole Allergy Intermediate ITCHY HIVES Verified 02/09/21 08:35 [From Bactrim] trimethoprim [From Bactrim] Allergy Intermediate ITCHY HIVES Verified 02/09/21 08:35 ciprofloxacin Allergy Mild itch Verified 02/09/21 08:35 cephalexin Allergy Unknown ON [facility] MED Verified 02/09/21 08:35 LIST rofecoxib Allergy Unknown ON [facility] MED Verified 02/09/21 08:35 LIST adhesive AdvReac Intermediate WELTS AND Verified 02/09/21 08:35 BURNING meloxicam AdvReac Unknown STOMACH Verified 12/23/20 22:19 UPSET Home Meds Home Medications Medication Instructions Recorded Confirmed albuterol sulfate 90 mcg/actuation 2 puff INHALATION Q6H PRN 05/19/18 02/09/21 aerosol inhaler (Ventolin HFA) aspirin 81 mg chewable tablet 81 mg PO HS 05/19/18 02/09/21 (Aspirin Childrens) cholecalciferol (vitamin D3) 50 2,000 unit PO QAM 05/19/18 02/09/21 mcg (2,000 unit) tablet insulin aspart U-100 100 unit/mL See Rx Instructions .ROUTE .COMPLEX 05/19/18 02/09/21 (3 mL) subcutaneous pen (Novolog Flexpen U-100 Insulin aspart) insulin glargine 100 unit/mL (3 60 - 68 unit SUBCUT HS 05/19/18 02/09/21 mL) subcutaneous pen (Lantus Solostar U-100 Insulin) umeclidinium 62.5 mcg-vilanterol 1 inh INHALATION QAM 05/19/18 02/09/21 25 mcg/actuation powdr for inhalation (Anoro Ellipta) guaifenesin 600 mg tablet, 600 - 1,200 mg PO DAILY PRN 02/04/19 02/09/21 extended release 12 hr (Mucinex) ketoconazole 2 % shampoo 2 % TOPICAL WK 02/04/19 02/09/21 nystatin 100,000 unit/gram topical 1 applic TOPICAL TID PRN 02/04/19 02/09/21 powder olmesartan 20 mg tablet 10 mg PO QAM 02/04/19 02/09/21 fluticasone furoate 100 1 inh INHALATION QAM 12/25/19 02/09/21 mcg/actuation blister powder for inhalation (Arnuity Ellipta) albuterol sulfate 2.5 mg CONTINUOUS NEBULIZATION Q4H 12/23/20 02/09/21 PRN furosemide 20 mg tablet 20 mg PO DAILY PRN 12/23/20 02/09/21 gentamicin 0.3 % eye drops 1 drp OPL Q4H PRN 12/23/20 02/09/21 ipratropium bromide 0.02 % 2.5 ml CONTINUOUS NEBULIZATION 12/23/20 02/09/21 solution for inhalation .Q6-8H PRN ketoconazole 2 % topical cream 1 applic TOPICAL DAILY PRN 12/23/20 02/09/21 levothyroxine 150 mcg tablet 150 mcg PO QAM 12/23/20 02/09/21 liraglutide 0.6 mg/0.1 mL (18 mg/3 1.8 mg SUBCUT DAILY 12/23/20 02/09/21 mL) subcutaneous pen injector ([employer] 3-Chandler) metformin 1,000 mg tablet 1,000 mg PO BIDM 12/23/20 02/09/21 mupirocin 2 % topical ointment 1 applic TOPICAL TID PRN 12/23/20 02/09/21 warfarin 5 mg tablet (Jantoven) 5 mg PO 5XWK 12/23/20 02/09/21 warfarin 5 mg tablet (Jantoven) 7.5 mg PO 2XWK 12/23/20 02/09/21 Vitamin B Complex Elixir 1 ml PO DAILY 02/09/21 02/09/21 Previous Rx's Medication Instructions Recorded benzonatate 100 mg capsule 100 mg PO TID PRN #20 cap 02/02/21 furosemide 40 mg tablet (Lasix) 40 mg PO DAILY PRN #7 tab 02/02/21 ondansetron 4 mg disintegrating 4 mg PO Q8H PRN #30 tab 02/02/21 tablet Results & Data (ED) Vital Signs Vital Signs - 24 hr 02/09/21 06:56 11/23/21 07:15 02/09/21 07:22 Temperature Temperature Source Pulse Rate 88 93 H Pulse Rate [Apical] Pulse Rate from SpO2 Sensor Pulse Rhythm Regular Pulse Strength Normal Respiratory Rate 23 29 H 18 Respiratory Depth Shallow Blood Pressure 51/44 L Blood Pressure [Right Arm] Blood Pressure Mean 46 Blood Pressure Mean [Right Arm] Blood Pressure Position Lying Pulse Oximetry 91 100 Oxygen Delivery Method Room Air Oxygen Flow Rate 50 Fraction of Inspired Oxygen 60 60 50 SaO2/FiO2 Ratio 158 Sepsis Recent Fever Within 48 Hours No Sepsis New/Unexplained Change in Mental Status Yes Sepsis Action Taken by Nursing Physician Notified End-Tidal CO2 23 End Tidal CO2 (18-54mmHg) 02/09/21 07:34 02/09/21 07:55 02/09/21 08:05 Temperature 32.6 C L 32.4 C L 32.7 C L Temperature Source Rectal Rosales Cath ( Temp Sensing) Rosales Cath ( Temp Sensing) Pulse Rate 90 89 87 Pulse Rate [Apical] Pulse Rate from SpO2 Sensor Pulse Rhythm Pulse Strength Respiratory Rate 28 H 22 23 Respiratory Depth Blood Pressure 134/54 L 85/36 L 77/30 L Blood Pressure [Right Arm] Blood Pressure Mean 80 52 45 Blood Pressure Mean [Right Arm] Blood Pressure Position Pulse Oximetry 97 97 96 Oxygen Delivery Method Oxygen Flow Rate Fraction of Inspired Oxygen SaO2/FiO2 Ratio Sepsis Recent Fever Within 48 Hours Sepsis New/Unexplained Change in Mental Status Sepsis Action Taken by Nursing End-Tidal CO2 End Tidal CO2 (18-54mmHg) 02/09/21 08:10 02/09/21 08:15 02/09/21 08:20 Temperature 32.8 C L 32.8 C L 32.8 C L Temperature Source Rosales Cath ( Temp Sensing) Rosales Cath ( Temp Sensing) Pulse Rate 91 H 91 H Pulse Rate [Apical] 91 H Pulse Rate from SpO2 Sensor 91 H Pulse Rhythm Pulse Strength Respiratory Rate 24 23 23 Respiratory Depth Blood Pressure 81/63 L 83/38 L Blood Pressure [Right Arm] 89/54 L Blood Pressure Mean 69 53 Blood Pressure Mean [Right Arm] 65 Blood Pressure Position Pulse Oximetry 97 97 97 Oxygen Delivery Method Mechanical Vent Mechanical Vent Oxygen Flow Rate Fraction of Inspired Oxygen SaO2/FiO2 Ratio Sepsis Recent Fever Within 48 Hours Sepsis New/Unexplained Change in Mental Status Sepsis Action Taken by Nursing End-Tidal CO2 27 End Tidal CO2 (18-54mmHg) 27 02/09/21 08:25 02/09/21 08:30 02/09/21 08:35 Temperature 32.8 C L 32.7 C L 32.7 C L Temperature Source Pulse Rate 93 H 90 89 Pulse Rate [Apical] Pulse Rate from SpO2 Sensor 93 H 90 90 Pulse Rhythm Pulse Strength Respiratory Rate 23 22 22 Respiratory Depth Blood Pressure 126/47 L 94/39 L 91/39 L Blood Pressure [Right Arm] Blood Pressure Mean 73 57 56 Blood Pressure Mean [Right Arm] Blood Pressure Position Pulse Oximetry 94 94 94 Oxygen Delivery Method Mechanical Vent Mechanical Vent Mechanical Vent Oxygen Flow Rate Fraction of Inspired Oxygen SaO2/FiO2 Ratio Sepsis Recent Fever Within 48 Hours Sepsis New/Unexplained Change in Mental Status Sepsis Action Taken by Nursing End-Tidal CO2 28 30 31 End Tidal CO2 (18-54mmHg) 02/09/21 08:40 02/09/21 08:45 02/09/21 08:50 Temperature 32.7 C L 32.7 C L 32.7 C L Temperature Source Pulse Rate 91 H 92 H 96 H Pulse Rate [Apical] Pulse Rate from SpO2 Sensor 90 93 H 96 H Pulse Rhythm Pulse Strength Respiratory Rate 22 22 22 Respiratory Depth Blood Pressure 99/43 L 101/47 L 106/45 L Blood Pressure [Right Arm] Blood Pressure Mean 61 65 65 Blood Pressure Mean [Right Arm] Blood Pressure Position Pulse Oximetry 95 97 97 Oxygen Delivery Method Mechanical Vent Mechanical Vent Mechanical Vent Oxygen Flow Rate Fraction of Inspired Oxygen SaO2/FiO2 Ratio Sepsis Recent Fever Within 48 Hours Sepsis New/Unexplained Change in Mental Status Sepsis Action Taken by Nursing End-Tidal CO2 29 32 29 End Tidal CO2 (18-54mmHg) 02/09/21 08:55 02/09/21 09:00 02/09/21 09:05 Temperature 32.6 C L 32.6 C L 32.6 C L Temperature Source Pulse Rate 96 H 97 H 98 H Pulse Rate [Apical] Pulse Rate from SpO2 Sensor 96 H 97 H 98 H Pulse Rhythm Pulse Strength Respiratory Rate 22 21 20 Respiratory Depth Blood Pressure 105/47 L 103/46 L 112/50 L Blood Pressure [Right Arm] Blood Pressure Mean 66 65 70 Blood Pressure Mean [Right Arm] Blood Pressure Position Pulse Oximetry 96 97 96 Oxygen Delivery Method Mechanical Vent Mechanical Vent Mechanical Vent Oxygen Flow Rate Fraction of Inspired Oxygen 60 60 SaO2/FiO2 Ratio Sepsis Recent Fever Within 48 Hours Sepsis New/Unexplained Change in Mental Status Sepsis Action Taken by Nursing End-Tidal CO2 30 31 31 End Tidal CO2 (18-54mmHg) Home Medications Current Medication List: was personally reviewed by me Laboratory Data Attestation: I reviewed the patient's lab results. Result diagrams: 02/09/21 13:07 02/09/21 13:07 Lab Results 02/09/21 02/09/21 02/09/21 Range/Units 06:50 07:02 07:10 WBC (4.8-10.8) K/uL RBC (4.2-5.4) M/uL Hgb (12.0-16.0) g/dL POC Hgb 6.5 L* (12.0-16.0) g/dl Hct (37-47) % POC Hct 19 L* (37-47) % MCV (80-100) fL MCH (25-34) pg MCHC (32-36) g/dL RDW Std Deviation (36.4-46.3) fL RDW Coeff of Tegan (11.5-14.5) % Plt Count (130-400) K/uL MPV (7.4-10.4) fL Absolute Nucleated RBC (0-0) K/uL Nucleated RBC % (auto) % Neutrophils % (Manual) % Lymphocytes % (Manual) % Monocytes % (Manual) % Eosinophils % (Manual) % Metamyelocytes % (Man) % Neutrophils # (Manual) (1.4-6.5) K/uL Total Absolute Neuts (1.4-6.5) K/uL Lymphocytes # (Manual) (1.2-3.4) K/uL Total Abs Lymphocytes (1.2-3.4) K/uL Monocytes # (Manual) (0.11-0.59) K/uL Eosinophils # (Manual) (0-0.5) K/uL Metamyelocytes # (Man) (0-0) K/uL Hypochromasia Echinocytes PT (9.0-12.0) Seconds INR (0.9-1.1) APTT (21.0-31.0) Seconds PTT Ratio POC Sodium 136 (135-144) mmol/L Sodium (136-145) mmol/L POC Potassium 6.4 H* (3.3-5.0) mmol/L Potassium (3.5-5.1) mmol/L POC Chloride 110 (101-112) mmol/L Chloride (98-107) mmol/L Carbon Dioxide (21-32) mmol/L POC Total CO2 13 L (24-31) mmol/L Anion Gap (3-11) POC Anion Gap 20.0 (16-25) mmol/L POC BUN 49 H (7-18) mg/dl BUN (7-18) mg/dl Creatinine (0.6-1.2) mg/dl POC Creatinine 1.7 H (0.6-1.3) mg/dl Est Cr Clr Drug Dosing Est GFR ( Amer) ml/min Est GFR (Non-Af Amer) ml/min BUN/Creatinine Ratio (10-20) Glucose (70-99) mg/dl POC Glucose 57 L* (70-99) mg/dl POC Glucose (other) 53 L* (70-99) mg/dl Lactate (0.4-2.0) mmol/L Calcium (8.5-10.1) mg/dl POC Ioniz Calcium Jw 1.05 L (1.12-1.32) mmol/l Magnesium (1.8-2.4) mg/dl Total Bilirubin (0.2-1) mg/dl AST (15-37) U/L ALT (12-78) U/L Alkaline Phosphatase (45-117) U/L Lactate Dehydrogenase (84-246) U/L Troponin I (0-0.045) ng/ml Total Protein (6.4-8.2) gm/dl Albumin (3.4-5.0) gm/dl Globulin (2.5-4.0) gm/dl Albumin/Globulin Ratio (0.9-2) Lipase (73-393) U/L Procalcitonin (0-0.5) ng/ml TSH (0.300-4.500) uIu/ml Urine Color Urine Appearance (Clear) Urine pH (4.5-7.5) Ur Specific [place] (1.000-1.030) Urine Protein (Negative) Urine Glucose (UA) (Negative) Urine Ketones (Negative) Urine Blood (Negative) Urine Nitrite (Negative) Urine Bilirubin (Negative) Urine Urobilinogen (Negative) Ur Leukocyte Esterase (Negative) Urine WBC (Auto) (0-5) /hpf Urine RBC (Auto) (0-4) /hpf U Hyaline Cast (Auto) (0-5) /lpf U Epithel Cells (Auto) (0-5) /lpf Urine Bacteria (Auto) (Negative) POC Stool Occult Blood Positive A (Negative) SARS-CoV-2 (PCR) (Negative) Blood Type Antibody Screen Crossmatch 02/09/21 02/09/21 02/09/21 Range/Units 07:15 07:15 07:15 WBC 16.69 H (4.8-10.8) K/uL RBC 2.01 L (4.2-5.4) M/uL Hgb 4.9 L* (12.0-16.0) g/dL POC Hgb (12.0-16.0) g/dl Hct 16.5 L* (37-47) % POC Hct (37-47) % MCV 82.1 (80-100) fL MCH 24.4 L (25-34) pg MCHC 29.7 L (32-36) g/dL RDW Std Deviation 62.5 H (36.4-46.3) fL RDW Coeff of Tegan 20.7 H (11.5-14.5) % Plt Count 158 (130-400) K/uL MPV 9.1 (7.4-10.4) fL Absolute Nucleated RBC 0.05 H (0-0) K/uL Nucleated RBC % (auto) 0.3 % Neutrophils % (Manual) 92.2 % Lymphocytes % (Manual) 2.6 % Monocytes % (Manual) 2.6 % Eosinophils % (Manual) 0.9 % Metamyelocytes % (Man) 1.7 % Neutrophils # (Manual) 15.39 H (1.4-6.5) K/uL Total Absolute Neuts 15.39 H (1.4-6.5) K/uL Lymphocytes # (Manual) 0.43 L (1.2-3.4) K/uL Total Abs Lymphocytes 0.43 L (1.2-3.4) K/uL Monocytes # (Manual) 0.43 (0.11-0.59) K/uL Eosinophils # (Manual) 0.15 (0-0.5) K/uL Metamyelocytes # (Man) 0.28 H (0-0) K/uL Hypochromasia Present Echinocytes 1+ PT 21.5 H (9.0-12.0) Seconds INR 2.3 H (0.9-1.1) APTT 37.0 H (21.0-31.0) Seconds PTT Ratio 1.4 POC Sodium (135-144) mmol/L Sodium 138 (136-145) mmol/L POC Potassium (3.3-5.0) mmol/L Potassium 6.1 H* (3.5-5.1) mmol/L POC Chloride (101-112) mmol/L Chloride 111 H (98-107) mmol/L Carbon Dioxide 15 L (21-32) mmol/L POC Total CO2 (24-31) mmol/L Anion Gap 12.0 H (3-11) POC Anion Gap (16-25) mmol/L POC BUN (7-18) mg/dl BUN 37 H (7-18) mg/dl Creatinine 1.76 H (0.6-1.2) mg/dl POC Creatinine (0.6-1.3) mg/dl Est Cr Clr Drug Dosing Not Reportable Est GFR ( Amer) 35.3 ml/min Est GFR (Non-Af Amer) 30.5 ml/min BUN/Creatinine Ratio 21.0 H (10-20) Glucose 162 H (70-99) mg/dl POC Glucose (70-99) mg/dl POC Glucose (other) (70-99) mg/dl Lactate (0.4-2.0) mmol/L Calcium 8.2 L (8.5-10.1) mg/dl POC Ioniz Calcium Jw (1.12-1.32) mmol/l Magnesium 2.4 (1.8-2.4) mg/dl Total Bilirubin 1.1 H (0.2-1) mg/dl AST 473 H (15-37) U/L ALT 216 H (12-78) U/L Alkaline Phosphatase 124 H (45-117) U/L Lactate Dehydrogenase (84-246) U/L Troponin I 0.067 H* (0-0.045) ng/ml Total Protein 4.0 L (6.4-8.2) gm/dl Albumin 1.3 L (3.4-5.0) gm/dl Globulin 2.7 (2.5-4.0) gm/dl Albumin/Globulin Ratio 0.5 L (0.9-2) Lipase (73-393) U/L Procalcitonin (0-0.5) ng/ml TSH (0.300-4.500) uIu/ml Urine Color Urine Appearance (Clear) Urine pH (4.5-7.5) Ur Specific [place] (1.000-1.030) Urine Protein (Negative) Urine Glucose (UA) (Negative) Urine Ketones (Negative) Urine Blood (Negative) Urine Nitrite (Negative) Urine Bilirubin (Negative) Urine Urobilinogen (Negative) Ur Leukocyte Esterase (Negative) Urine WBC (Auto) (0-5) /hpf Urine RBC (Auto) (0-4) /hpf U Hyaline Cast (Auto) (0-5) /lpf U Epithel Cells (Auto) (0-5) /lpf Urine Bacteria (Auto) (Negative) POC Stool Occult Blood (Negative) SARS-CoV-2 (PCR) (Negative) Blood Type Antibody Screen Crossmatch 02/09/21 02/09/21 02/09/21 Range/Units 07:15 07:15 07:15 WBC (4.8-10.8) K/uL RBC (4.2-5.4) M/uL Hgb (12.0-16.0) g/dL POC Hgb (12.0-16.0) g/dl Hct (37-47) % POC Hct (37-47) % MCV (80-100) fL MCH (25-34) pg MCHC (32-36) g/dL RDW Std Deviation (36.4-46.3) fL RDW Coeff of Tegan (11.5-14.5) % Plt Count (130-400) K/uL MPV (7.4-10.4) fL Absolute Nucleated RBC (0-0) K/uL Nucleated RBC % (auto) % Neutrophils % (Manual) % Lymphocytes % (Manual) % Monocytes % (Manual) % Eosinophils % (Manual) % Metamyelocytes % (Man) % Neutrophils # (Manual) (1.4-6.5) K/uL Total Absolute Neuts (1.4-6.5) K/uL Lymphocytes # (Manual) (1.2-3.4) K/uL Total Abs Lymphocytes (1.2-3.4) K/uL Monocytes # (Manual) (0.11-0.59) K/uL Eosinophils # (Manual) (0-0.5) K/uL Metamyelocytes # (Man) (0-0) K/uL Hypochromasia Echinocytes PT (9.0-12.0) Seconds INR (0.9-1.1) APTT (21.0-31.0) Seconds PTT Ratio POC Sodium (135-144) mmol/L Sodium (136-145) mmol/L POC Potassium (3.3-5.0) mmol/L Potassium (3.5-5.1) mmol/L POC Chloride (101-112) mmol/L Chloride (98-107) mmol/L Carbon Dioxide (21-32) mmol/L POC Total CO2 (24-31) mmol/L Anion Gap (3-11) POC Anion Gap (16-25) mmol/L POC BUN (7-18) mg/dl BUN (7-18) mg/dl Creatinine (0.6-1.2) mg/dl POC Creatinine (0.6-1.3) mg/dl Est Cr Clr Drug Dosing Est GFR ( Amer) ml/min Est GFR (Non-Af Amer) ml/min BUN/Creatinine Ratio (10-20) Glucose (70-99) mg/dl POC Glucose (70-99) mg/dl POC Glucose (other) (70-99) mg/dl Lactate 11.2 H* (0.4-2.0) mmol/L Calcium (8.5-10.1) mg/dl POC Ioniz Calcium Jw (1.12-1.32) mmol/l Magnesium (1.8-2.4) mg/dl Total Bilirubin (0.2-1) mg/dl AST (15-37) U/L ALT (12-78) U/L Alkaline Phosphatase (45-117) U/L Lactate Dehydrogenase (84-246) U/L Troponin I (0-0.045) ng/ml Total Protein (6.4-8.2) gm/dl Albumin (3.4-5.0) gm/dl Globulin (2.5-4.0) gm/dl Albumin/Globulin Ratio (0.9-2) Lipase (73-393) U/L Procalcitonin 0.16 (0-0.5) ng/ml TSH (0.300-4.500) uIu/ml Urine Color Urine Appearance (Clear) Urine pH (4.5-7.5) Ur Specific [place] (1.000-1.030) Urine Protein (Negative) Urine Glucose (UA) (Negative) Urine Ketones (Negative) Urine Blood (Negative) Urine Nitrite (Negative) Urine Bilirubin (Negative) Urine Urobilinogen (Negative) Ur Leukocyte Esterase (Negative) Urine WBC (Auto) (0-5) /hpf Urine RBC (Auto) (0-4) /hpf U Hyaline Cast (Auto) (0-5) /lpf U Epithel Cells (Auto) (0-5) /lpf Urine Bacteria (Auto) (Negative) POC Stool Occult Blood (Negative) SARS-CoV-2 (PCR) (Negative) Blood Type O Positive Antibody Screen NEGATIVE Crossmatch See Detail 02/09/21 02/09/21 02/09/21 Range/Units 07:15 07:15 08:14 WBC (4.8-10.8) K/uL RBC (4.2-5.4) M/uL Hgb (12.0-16.0) g/dL POC Hgb (12.0-16.0) g/dl Hct (37-47) % POC Hct (37-47) % MCV (80-100) fL MCH (25-34) pg MCHC (32-36) g/dL RDW Std Deviation (36.4-46.3) fL RDW Coeff of Tegan (11.5-14.5) % Plt Count (130-400) K/uL MPV (7.4-10.4) fL Absolute Nucleated RBC (0-0) K/uL Nucleated RBC % (auto) % Neutrophils % (Manual) % Lymphocytes % (Manual) % Monocytes % (Manual) % Eosinophils % (Manual) % Metamyelocytes % (Man) % Neutrophils # (Manual) (1.4-6.5) K/uL Total Absolute Neuts (1.4-6.5) K/uL Lymphocytes # (Manual) (1.2-3.4) K/uL Total Abs Lymphocytes (1.2-3.4) K/uL Monocytes # (Manual) (0.11-0.59) K/uL Eosinophils # (Manual) (0-0.5) K/uL Metamyelocytes # (Man) (0-0) K/uL Hypochromasia Echinocytes PT (9.0-12.0) Seconds INR (0.9-1.1) APTT (21.0-31.0) Seconds PTT Ratio POC Sodium (135-144) mmol/L Sodium (136-145) mmol/L POC Potassium (3.3-5.0) mmol/L Potassium (3.5-5.1) mmol/L POC Chloride (101-112) mmol/L Chloride (98-107) mmol/L Carbon Dioxide (21-32) mmol/L POC Total CO2 (24-31) mmol/L Anion Gap (3-11) POC Anion Gap (16-25) mmol/L POC BUN (7-18) mg/dl BUN (7-18) mg/dl Creatinine (0.6-1.2) mg/dl POC Creatinine (0.6-1.3) mg/dl Est Cr Clr Drug Dosing Est GFR ( Amer) ml/min Est GFR (Non-Af Amer) ml/min BUN/Creatinine Ratio (10-20) Glucose (70-99) mg/dl POC Glucose (70-99) mg/dl POC Glucose (other) (70-99) mg/dl Lactate (0.4-2.0) mmol/L Calcium (8.5-10.1) mg/dl POC Ioniz Calcium Jw (1.12-1.32) mmol/l Magnesium (1.8-2.4) mg/dl Total Bilirubin (0.2-1) mg/dl AST (15-37) U/L ALT (12-78) U/L Alkaline Phosphatase (45-117) U/L Lactate Dehydrogenase 902 H (84-246) U/L Troponin I (0-0.045) ng/ml Total Protein (6.4-8.2) gm/dl Albumin (3.4-5.0) gm/dl Globulin (2.5-4.0) gm/dl Albumin/Globulin Ratio (0.9-2) Lipase 536 H (73-393) U/L Procalcitonin (0-0.5) ng/ml TSH 1.420 (0.300-4.500) uIu/ml Urine Color Urine Appearance (Clear) Urine pH (4.5-7.5) Ur Specific [place] (1.000-1.030) Urine Protein (Negative) Urine Glucose (UA) (Negative) Urine Ketones (Negative) Urine Blood (Negative) Urine Nitrite (Negative) Urine Bilirubin (Negative) Urine Urobilinogen (Negative) Ur Leukocyte Esterase (Negative) Urine WBC (Auto) (0-5) /hpf Urine RBC (Auto) (0-4) /hpf U Hyaline Cast (Auto) (0-5) /lpf U Epithel Cells (Auto) (0-5) /lpf Urine Bacteria (Auto) (Negative) POC Stool Occult Blood (Negative) SARS-CoV-2 (PCR) NEGATIVE (Negative) Blood Type Antibody Screen Crossmatch 02/09/21 02/09/21 02/09/21 Range/Units 08:14 08:26 08:40 WBC (4.8-10.8) K/uL RBC (4.2-5.4) M/uL Hgb (12.0-16.0) g/dL POC Hgb (12.0-16.0) g/dl Hct (37-47) % POC Hct (37-47) % MCV (80-100) fL MCH (25-34) pg MCHC (32-36) g/dL RDW Std Deviation (36.4-46.3) fL RDW Coeff of Tegan (11.5-14.5) % Plt Count (130-400) K/uL MPV (7.4-10.4) fL Absolute Nucleated RBC (0-0) K/uL Nucleated RBC % (auto) % Neutrophils % (Manual) % Lymphocytes % (Manual) % Monocytes % (Manual) % Eosinophils % (Manual) % Metamyelocytes % (Man) % Neutrophils # (Manual) (1.4-6.5) K/uL Total Absolute Neuts (1.4-6.5) K/uL Lymphocytes # (Manual) (1.2-3.4) K/uL Total Abs Lymphocytes (1.2-3.4) K/uL Monocytes # (Manual) (0.11-0.59) K/uL Eosinophils # (Manual) (0-0.5) K/uL Metamyelocytes # (Man) (0-0) K/uL Hypochromasia Echinocytes PT (9.0-12.0) Seconds INR (0.9-1.1) APTT (21.0-31.0) Seconds PTT Ratio POC Sodium (135-144) mmol/L Sodium (136-145) mmol/L POC Potassium (3.3-5.0) mmol/L Potassium (3.5-5.1) mmol/L POC Chloride (101-112) mmol/L Chloride (98-107) mmol/L Carbon Dioxide (21-32) mmol/L POC Total CO2 (24-31) mmol/L Anion Gap (3-11) POC Anion Gap (16-25) mmol/L POC BUN (7-18) mg/dl BUN (7-18) mg/dl Creatinine (0.6-1.2) mg/dl POC Creatinine (0.6-1.3) mg/dl Est Cr Clr Drug Dosing Est GFR ( Amer) ml/min Est GFR (Non-Af Amer) ml/min BUN/Creatinine Ratio (10-20) Glucose (70-99) mg/dl POC Glucose 123 H (70-99) mg/dl POC Glucose (other) (70-99) mg/dl Lactate Cancelled (0.4-2.0) mmol/L Calcium (8.5-10.1) mg/dl POC Ioniz Calcium Jw (1.12-1.32) mmol/l Magnesium (1.8-2.4) mg/dl Total Bilirubin (0.2-1) mg/dl AST (15-37) U/L ALT (12-78) U/L Alkaline Phosphatase (45-117) U/L Lactate Dehydrogenase (84-246) U/L Troponin I (0-0.045) ng/ml Total Protein (6.4-8.2) gm/dl Albumin (3.4-5.0) gm/dl Globulin (2.5-4.0) gm/dl Albumin/Globulin Ratio (0.9-2) Lipase (73-393) U/L Procalcitonin (0-0.5) ng/ml TSH (0.300-4.500) uIu/ml Urine Color Dark Yellow Urine Appearance Clear (Clear) Urine pH 5.0 (4.5-7.5) Ur Specific [place] 1.020 (1.000-1.030) Urine Protein Trace H (Negative) Urine Glucose (UA) Negative (Negative) Urine Ketones Trace H (Negative) Urine Blood Negative (Negative) Urine Nitrite Negative (Negative) Urine Bilirubin Negative (Negative) Urine Urobilinogen Negative (Negative) Ur Leukocyte Esterase Trace H (Negative) Urine WBC (Auto) 1-5 (0-5) /hpf Urine RBC (Auto) 5-10 H (0-4) /hpf U Hyaline Cast (Auto) 5-10 H (0-5) /lpf U Epithel Cells (Auto) >30 H (0-5) /lpf Urine Bacteria (Auto) Negative (Negative) POC Stool Occult Blood (Negative) SARS-CoV-2 (PCR) (Negative) Blood Type Antibody Screen Crossmatch Administered Medications Midazolam HCl (Versed) 125 mg in 250 mls @ 3 mls/hr IV .[id number] [facility]; Protocol Stop: 03/11/21 08:29 Last Titration: 02/09/21 09:11 Dose: 1.5 mg/hr, 3 mls/hr Documented by: [id number] Cosigned by: [id number] Admin: 02/09/21 08:47 Dose: 1 mg/hr, 2 mls/hr Documented by: [id number] Cosigned by: [id number] Norepinephrine Bitartrate (Levophed/D5w) 8 mg in 508 mls @ 213.512 mls/hr IV .Q2H23M [facility]; Protocol Stop: 03/11/21 10:14 Last Titration: 02/09/21 12:35 Dose: 0.3 mcg/kg/min, 213.5 mls/hr Documented by: [id number] Titration: 02/09/21 11:55 Dose: 0.11 mcg/kg/min, 78.3 mls/hr Documented by: [id number] Titration: 02/09/21 11:30 Dose: 0.09 mcg/kg/min, 64.1 mls/hr Documented by: [id number] Titration: 02/09/21 10:29 Dose: 0.07 mcg/kg/min, 49.8 mls/hr Documented by: [id number] Admin: 02/09/21 10:22 Dose: 0.05 mcg/kg/min, 35.6 mls/hr Documented by: [id number] Cosigned by: [id number] Discontinued Medications Dextrose (Dextrose 50% 50 Ml Syringe) Confirm Administered Dose 50 ml IV .STK- MED ONE Stop: 02/09/21 06:54 Last Admin: 02/09/21 07:00 Dose: 50 ml Documented by: [id number] Dextrose (Dextrose 50% 50 Ml Syringe) 50 ml IV NOW STA Stop: 02/09/21 08:16 Last Admin: 02/09/21 08:38 Dose: 50 ml Documented by: [id number] Furosemide (Furosemide 40 Mg/4 Ml Vial) 40 mg IV ONE ONE Stop: 02/09/21 10:07 Last Admin: 02/09/21 10:12 Dose: 40 mg Documented by: [id number] Sodium Chloride (Nss 1000ml) 1,000 mls @ 999 mls/hr IV .Q1H1M [facility] Stop: 02/09/21 08:15 Last Infusion: 02/09/21 08:21 Dose: 0 mls/hr Documented by: [id number] Admin: 02/09/21 07:20 Dose: 999 mls/hr Documented by: [id number] Pantoprazole Sodium 80 mg/ (Dextrose) 100 mls @ 400 mls/hr IV NOW ONE Stop: 02/09/21 07:24 Last Infusion: 02/09/21 08:17 Dose: 0 mls/hr Documented by: [id number] Admin: 02/09/21 08:02 Dose: 400 mls/hr Documented by: [id number] Propofol (Diprivan) 1,000 mg in 100 mls @ 22.416 mls/hr IV .Q4H28M [facility]; Protocol Stop: 02/12/21 07:44 Last Titration: 02/09/21 08:10 Dose: 0 mcg/kg/min, 0 mls/hr Documented by: [id number] Admin: 02/09/21 07:48 Dose: 20 mcg/kg/min, 22.4 mls/hr Documented by: [id number] Cosigned by: [id number] Phytonadione 10 mg/ Sodium (Chloride) 51 mls @ 102 mls/hr IV ONE ONE Stop: 02/09/21 08:21 Last Infusion: 02/09/21 08:49 Dose: 0 mls/hr Documented by: [id number] Admin: 02/09/21 08:19 Dose: 102 mls/hr Documented by: [id number] Meropenem 500 mg/ Syringe 10 mls @ 2 mls/min IV NOW STA; Protocol Stop: 02/09/21 08:17 Last Admin: 02/09/21 08:44 Dose: 2 mls/min Documented by: [id number] Calcium Gluconate 2,000 mg/ (Sodium Chloride) 70 mls @ 280 mls/hr IV NOW Stop: 02/09/21 08:29 Last Admin: 02/09/21 08:53 Dose: 280 mls/hr Documented by: [id number] Insulin Human Regular 10 units (/ Syringe) 10 mls @ 30 mls/min IV NOW STA Stop: 02/09/21 08:17 Last Admin: 02/09/21 08:39 Dose: 30 mls/min Documented by: [id number] Cosigned by: [id number] Lidocaine HCl (Lidocaine 2% Local 50 Ml Vial) Confirm Administered Dose 50 ml .ROUTE .STK-MED ONE Stop: 02/09/21 07:00 Last Admin: 02/09/21 09:12 Dose: 4 ml Documented by: [id number] Midazolam HCl (Midazolam Hcl 1 Mg/Ml 2ml Vial) Confirm Administered Dose 2 mg .ROUTE .STK-MED ONE Stop: 02/09/21 08:26 Last Admin: 02/09/21 08:26 Dose: 2 mg Documented by: [id number] Miscellaneous (Rapid Sequence Induction Bag) Confirm Administered Dose 1 ea .ROUTE .STK-MED ONE Stop: 02/09/21 07:02 Last Admin: 02/09/21 09:15 Dose: 1 ea Documented by: [id number] Propofol (Propofol Iv Emulsion 10 Mg/Ml 100 Ml Vial) Confirm Administered Dose 1,000 mg IV .STK-MED ONE Stop: 02/09/21 07:37 Last Admin: 02/09/21 07:49 Dose: Not Given Documented by: [id number] Propofol (Propofol Bolus From Bag) 20 mg IV Q5M PRN PRN Reason: Sedation Stop: 02/12/21 07:43 Last Admin: 02/09/21 07:53 Dose: 20 mg Documented by: [id number] Cosigned by: [id number] Imaging Data Radiologist's Impression: Chest X-Ray 02/09/21 06:56 PORTABLE SUPINE AP CHEST RADIOGRAPH CLINICAL HISTORY: Sepsis. COMPARISON STUDY: Chest radiograph February 02, 2021. FINDINGS: This exam was technically difficult to obtain. The patient is rotated. Tip of endotracheal tube is 3.3 cm above the rena. No pneumothorax is identified on this supine exam. Apparent left lower lung opacity is noted. Cardiomegaly is unchanged. Pulmonary vascular congestion is similar to prior exam. IMPRESSION: 1. Tip of endotracheal tube 3.3 cm above the rena. 2. Technically difficult study to obtain. Apparent left mid and basilar airspace opacity is likely artifactual although consolidation could appear similar. This can be assessed on follow-up radiographs. 3. Cardiomegaly with pulmonary vascular congestion. ACT 112: Negative or not required by law. Electronically signed by: Bakari Colin M.D. 02/09/2021 7:28 AM Blood Pressure Blood Pressure Findings: Low blood pressure Blood Pressure Disposition: further management by hospitalist Discharge Plan Visit Data Chief Complaint: GI Bleed Stated Complaint: FALL ED Provider: Ashley Mcdonald Discharge Problem: UGIB (upper gastrointestinal bleed), Acute blood loss anemia, Acute alteration in mental status, Acute hypotension, Chronic anticoagulation Patient Disposition: Admitted As Inpatient Discharge Instructions Interventions: ED Discharge Assessment Last Done: 02/09/21 12:20
[2021-02-09 11:41] LABS: Fibrinogen 98 mg/dl (184-400)
--- NOTE | 2021-02-09 12:14 | CT Scan Report ---
HEAD CT NONCONTRAST CT DOSE: 614.27 mGy.cm HISTORY: Unresponsive after fall-currently intubated TECHNIQUE: Multiaxial CT images of the head were performed without the use of intravenous contrast. A utomated exposure control was utilized for this study. A dose lowering technique was utilized adheri ng to the principles of ALARA. Comparison: Head CT 05/19/2018. Findings: Mild mucosal thickening within the ethmoid air cells. The right mastoid air cells. There is opacification of the left middle ear cavity and left mastoid air cells. The calvarium and skull base are intact. The ventricles and sulci are within normal limits. There is no mass, hematoma, midline s hift, or acute infarct. Impression: 1. No acute intracranial abnormality. 2. Opacified left middle ear cavity and mastoid air cells. ACT 112: Negative or not required by law. Electronically signed by: Willem Dubose M.D. 02/09/2021 12:13 PM
[2021-02-09] MEDS ORDERED: ICU PROTOCOL FOR HYPERGLYCEMIA PRN (12:31)
[2021-02-09] MEDS ORDERED: NORMOSOL-R 2,000 ML IV ONE (13:08)
[2021-02-09] MEDS ORDERED: VASOPRESSIN 20 UNITS in 0.9 % SODIUM CHLORIDE 100 ML IV SCH (13:15)
[2021-02-09 13:21] LABS: Hematocrit (blood only) 23.1 % (37-47); Hemoglobin 7.1 g/dL (12.0-16.0)
[2021-02-09 13:27] LABS: iSTAT Art Bld Gas pCO2 Correct 33 mmHg (35-46); iSTAT Arterial Blood Gas HCO3 14 meg/L (19-24); iSTAT Arterial Blood Gas pCO2 39 mmHg (35-46); iSTAT Arterial Blood Gas pH 7.15 (7.35-7.45); iSTAT Arterial Blood Gas pO2 101 mmHg (80-95); iSTAT Arterial Blood Gas pO2 C 81; iSTAT Carbon Dioxide 15 mmol/L (24-31); iSTAT FiO2 50 %; iSTAT Hematocrit 22 % (37-47); iSTAT Hemoglobin 7.5 g/dl (12.0-16.0); iSTAT Site Art Line; iSTAT Sodium 136 mmol/L (135-144)
--- NOTE | 2021-02-09 13:30 | Pharmacy Report ---
Pharmacy Glycemic Short Note 2 - Date of Service February 09, 2021 - Glycemic Short BSG Results (Last 24 hours): 02/09/21 02/09/21 02/09/21 06:50 07:02 07:15 Glucose 162 H POC Glucose 57 L* POC Glucose (other) 53 L* 02/09/21 02/09/21 08:26 12:30 Glucose POC Glucose 123 H 102 H POC Glucose (other) OUTPATIENT ANTIDIABETIC REGIMEN: * Per medication rec (unable to confirm w/ patient): * Novolog 60 units qam, 40 units at noon, 70 units HS and 15 units with snacks * Lantus 60-68 units HS * A1c 5.7% on 12/23/20 but may be unreliable ASSESSMENT: * Patient admitted with fall, altered mentation, hypotension, GI Bleed hx of cirrhosis/varices, type II diabetes * BSG low this morning, 123 mg/dl on recheck and 102 mg/dL on floor. Patient is currently intubated on high dose of norepinephrine, starting vasopressin, on protonix drip (in dextrose and octreotide. Hgb on admission was 4.9. * Patient is NPO, unable to confirm outpatient insulin dosing and BSGs have been at or below goal range. Will start novolog with weight based stress of 2 parameters (based on adjusted body weight) and place a reduced lantus dose on for tonight given NPO status, will start insulin infusion if BSGs rise given critical state and high dose pressors. PLAN FOR INPATIENT GLYCEMIC CONTROL: * Hold outpatient oral diabetes medications * Basal insulin * Lantus 10/20 units HS * Bolus insulin * NovoLog per scale ACHS or Q4hrs while NPO * Goal Range: Low 120 mg/dL - High 160 mg/dL * Correction Factor: 20 mg/dL/unit * Nutritional / Prandial insulin per carb ratio of 1 unit per 7 grams CHO consumed
--- NOTE | 2021-02-09 13:32 | XRay Report ---
XR chest 1V portable HISTORY: 60 years-old Female confirm CVC and OG line placement acute respiratory failure COMPARISON: Chest radiograph 02/09/2021 at 6:54 AM TECHNIQUE: Supine AP view of the chest FINDINGS: Endotracheal tube overlies the midline, 2.5 cm superior to the rena. Enteric tube courses below the diaphragm with distal tip outside the [id number]. Left subclavian central venous catheter distal tip projects over the right atrium. No definite pneumothorax. Small pleural effusions. Pulmonary vasc ular congestion with interstitial coarsening and persistent bibasilar densities. There are new/progre ssive opacities of the left lung apex. Limited study secondary to body habitus. No acute fracture. IMPRESSION: 1. Lines and tubes as above. 2. Cardiomegaly with pulmonary vascular congestion and interstitial coarsening suggestive of pulmonar y edema. 3. Small pleural effusions with bibasilar opacities redemonstrated. 4. New left apical opacities may reflect a superimposed pneumonia. ACT 112: Negative or not required by law. The above report was generated using voice recognition software. It may contain grammatical, syntax o r spelling errors. Electronically signed by: Lewis Clarke M.D. 02/09/2021 1:30 PM
[2021-02-09 13:35] LABS: INR 2.5 (0.9-1.1); Prothrombin Time 23.5 Seconds (9.0-12.0)
--- NOTE | 2021-02-09 13:54 | Procedure Note ---
Procedure Note Date of Service February 09, 2021 Note CENTRAL LINE PROCEDURE NOTE: Procedure: Central Line Placement Provider: Chuck Bentley MD Indication: Central Drug Administration, Poor Venous Access, Multiple Lab Draws Necessary, etc. Anesthesia: Patient was on propofol infusion Site: Left subclavian Procedure was emergent. Patient was unable to provide consent due to being intubated. No family immediately available. A time-out was completed verifying correct patient, procedure, site, positioning, and implants(s) or special equipment if applicable. Patients left clavicular area was cleansed and draped in the typical sterile fashion using Chloraprep. Anatomic landmarks were palpated. The superficial tissue was anesthetized using 5mL of 1% lidocaine without epinephrine. After adequate anesthetization was achieved, the left subclavian vein was cannulated using an introducer needle on a syringe. Good venous blood return was maintained prior to removal of syringe from introducer needle. Using Seldinger Technique, a guide wire was advanced through the introducer needle without resistance. The introducer needle was removed. A small incision was made in penetrating fashion at the guide wire insertion site utilizing an 11 blade scalpel. The dilator was advanced to the vessel without resistance. The dilator was exchanged for the triple lumen catheter which was advanced into the vessel without resistance. The guide wire was removed intact from the catheter without issue. Claves were placed on each catheter tip with confirmation of good blood flow from each lumen. Each port was easily flushed with sterile saline. The catheter was placed at the hub and sutured in place. BioPatch was applied to the catheter and a sterile Tegaderm dressing was applied over the catheter with careful attention to sterility. Patient tolerated procedure well. No immediate complications were met. Post procedure x-ray was completed, placement was appropriate and no pneumothorax was noted. Coding CPT Codes Tubes, Drains, and Vasc Access - Tubes, Drains, and Vasc Access: [id number] Place catheter in vein superior or inferior vena cava ([id number]) [facility] [place] Codes (Charges) Tubes, Drains, and Vasc Access Procedure 1: Tubes, Drains, and Vasc Access: [id number] Place catheter in vein superior or inferior vena cava
--- NOTE | 2021-02-09 13:56 | Procedure Note ---
Procedure Note Date of Service February 09, 2021 Note ARTERIAL LINE PROCEDURE NOTE: Procedure: Arterial Line Placement Provider: Chuck Bentley MD Indication: Monitoring on Pressors Anesthesia: IV propofol Procedure was emergent. The patient was unable to provide consent. No family immediately available A time-out was completed verifying correct patient, procedure, site, positioning, and implant(s) or special equipment if applicable. Initial attempts to access the right radial artery under ultrasound guidance. I was able to access the vessel however due to the patient's extreme obesity and body habitus, the catheter was not long enough to remain in the artery despite 2 attempts. We then transitioned to the left side. We went significantly more proximal where the vessel appeared to be more superficial. Under ultrasound guidance, a 20gauge catheter was placed in the left radial artery. Catheter was threaded, and the needle was removed with appropriate blood return. Good waveform was observed. The patient tolerated the procedure well. Blood Loss: 10 mL Complications: None Coding CPT Codes Tubes, Drains, and Vasc Access - Tubes, Drains, and Vasc Access: [id number] Insertion Catheter, Artery ([id number]) [facility] [place] (Charges) Tubes, Drains, and Vasc Access Procedure 1: Tubes, Drains, and Vasc Access: [id number] Insertion Catheter, Artery
[2021-02-09 14:06] LABS: Albumin Globulin Ratio 0.5 (0.9-2); Albumin Level 1.3 gm/dl (3.4-5.0); BUN Creatinine Ratio 19.2 (10-20); Bilirubin,Total 1.7 mg/dl (0.2-1); Calcium 7.6 mg/dl (8.5-10.1); Est GFR (African American) 34.4 ml/min; Est GFR (Non-African American) 29.6 ml/min; Globulin 2.8 gm/dl (2.5-4.0); Potassium 6.2 mmol/L (3.5-5.1); Total Protein 4.1 gm/dl (6.4-8.2); Troponin I 0.124 ng/ml (0-0.045)
--- NOTE | 2021-02-09 14:16 | Billing Data ---
Date of Service February 09, 2021 Coding Level of Care Code Critical Care 1st 30-74 mins Time Spent (min) 122 Comment [id number] and [id number]
[2021-02-09 14:45] LABS: Hematocrit (blood only) 18.5 % (37-47); Hemoglobin 5.7 g/dL (12.0-16.0); Mean Corpuscular Hemoglobin 26.9 pg (25-34); Mean Corpuscular Hgb Conc 30.8 g/dL (32-36); Mean Corpuscular Volume 87.3 fL (80-100); Mean Platelet Volume 9.3 fL (7.4-10.4); Nucleated RBC # (auto) 0.09 K/uL (0-0); Nucleated RBC % (auto) 0.4 %; Platelet Count 83 K/uL (130-400); RDW Coefficient of Variation 17.4 % (11.5-14.5); Red Blood Count 2.12 M/uL (4.2-5.4); White Blood Count 22.29 K/uL (4.8-10.8)
[2021-02-09 14:55] LABS: BUN Creatinine Ratio 20.6 (10-20); Creatinine Clr Calc Pharmacy 63.5 ml/min; Est GFR (African American) 40.8 ml/min; Est GFR (Non-African American) 35.2 ml/min
[2021-02-09 14:56] LABS: Basophils # (auto) 0.01 K/uL (0-0.2); Echinocytes 3+; Eosinophils # (auto) 0.01 K/uL (0-0.5); Hypochromasia Present; Immature Granulocytes # (auto) 0.24 K/uL (0.00-0.02); Immature Granulocytes % (auto) 1.1 %; Lymphocytes % (auto) 7.6 %; Monocytes # (auto) 2.07 K/uL (0.11-0.59); Monocytes % (auto) 9.3 %; Neutrophils # (auto) 18.26 K/uL (1.4-6.5)
[2021-02-09] MEDS: OCTREOTIDE ACETATE 500 MCG in 0.9 % SODIUM CHLORIDE 100 ML IV SCH ×2 (15:39→22:19)
[2021-02-09] MEDS: PANTOprazole 40 MG in DEXTROSE 5% 100 ML IV SCH ×2 (15:40→19:43)
[2021-02-09] MEDS: INSULIN ASPART 100 UNITS/ML 3 ML PEN SC SCH ×3 (15:42→20:57)
[2021-02-09] MEDS: VASOPRESSION #-# Do NOT Titrate #-# Option IV SCH ×2 (15:43→20:50)
[2021-02-09] MEDS ORDERED: CALCIUM CHLORIDE 10% 1,000 MG in SODIUM CHLORIDE 0.9% 50 ML IV ONE ×2 (15:45→17:30)
[2021-02-09] MEDS: MAX Conc 128mcg/mL; 32mg in 250mL IV SCH (19:45)
[2021-02-09] MEDS ORDERED: LACTATED RINGER'S 1,000 ML IV ONE (20:04)
[2021-02-09 20:35] LABS: Hematocrit (blood only) 30.5 % (37-47); Hemoglobin 9.7 g/dL (12.0-16.0); Mean Corpuscular Hemoglobin 28.4 pg (25-34); Mean Corpuscular Hgb Conc 31.8 g/dL (32-36); Mean Corpuscular Volume 89.2 fL (80-100); Mean Platelet Volume 9.7 fL (7.4-10.4); Nucleated RBC # (auto) 0.06 K/uL (0-0); Nucleated RBC % (auto) 0.2 %; Platelet Count 113 K/uL (130-400); RDW Coefficient of Variation 16.7 % (11.5-14.5); Red Blood Count 3.42 M/uL (4.2-5.4); White Blood Count 28.21 K/uL (4.8-10.8)
[2021-02-09 20:48] LABS: INR 1.6 (0.9-1.1); Prothrombin Time 15.4 Seconds (9.0-12.0)
[2021-02-09 20:50] LABS: Basophils # (auto) 0.02 K/uL (0-0.2); Basophils % (auto) 0.1 %; Echinocytes 2+; Immature Granulocytes % (auto) 0.7 %; Lymphocytes # (auto) 1.38 K/uL (1.2-3.4); Lymphocytes % (auto) 4.9 %; Monocytes # (auto) 2.74 K/uL (0.11-0.59); Monocytes % (auto) 9.7 %; Neutrophils # (auto) 23.87 K/uL (1.4-6.5); Neutrophils % (auto) 84.6 %; Ovalocytes 1+; Toxic Vacuolation 1+
[2021-02-09 20:53] LABS: Fibrinogen 130 mg/dl (184-400)
[2021-02-09] MEDS ORDERED: INSULIN GLARGINE SOLOSTAR 100 UNITS/ML 3 ML PEN SC ONE (21:00)
[2021-02-09 21:09] LABS: iSTAT Art Bld Gas pCO2 Correct 43 mmHg (35-46); iSTAT Art Bld Gas pH Corrected 7.116 (7.35-7.45); iSTAT Arterial Blood Gas HCO3 15 meg/L (19-24); iSTAT Arterial Blood Gas pCO2 52 mmHg (35-46); iSTAT Arterial Blood Gas pH 7.06 (7.35-7.45); iSTAT Arterial Blood Gas pO2 85 mmHg (80-95); iSTAT Arterial Blood Gas pO2 C 65; iSTAT Carbon Dioxide 16 mmol/L (24-31); iSTAT FiO2 50 %; iSTAT Hematocrit 30 % (37-47); iSTAT Hemoglobin 10.2 g/dl (12.0-16.0); iSTAT Potassium 5.8 mmol/L (3.3-5.0); iSTAT Site Art Line; iSTAT Sodium 133 mmol/L (135-144)
[2021-02-09 21:28] LABS: Albumin Globulin Ratio 0.6 (0.9-2); Albumin Level 1.9 gm/dl (3.4-5.0); BUN Creatinine Ratio 19.4 (10-20); Bilirubin,Total 2.1 mg/dl (0.2-1); Calcium 8.9 mg/dl (8.5-10.1); Creatinine Clr Calc Pharmacy 56.1 ml/min; Est GFR (African American) 34.6 ml/min; Est GFR (Non-African American) 29.8 ml/min; Potassium 6.1 mmol/L (3.5-5.1); Total Protein 4.9 gm/dl (6.4-8.2)
[2021-02-09] MEDS ORDERED: SODIUM BICARB 8.4% INJ 50 MEQ/50 ML SYR IV STA (21:38)
[2021-02-09] MEDS ORDERED: STAT IV STA (21:57)
[2021-02-09] MEDS ORDERED: CALCIUM GLUCONATE 10% 1,000 MG in SODIUM CHLORIDE 0.9% 50 ML IV ONE (22:00)
[2021-02-09] MEDS ORDERED: SODIUM BICARBONATE 8.4% 150 MEQ in DEXTROSE 5% 1,000 ML IV SCH (22:00)
--- NOTE | 2021-02-09 22:09 | Communication Note ---
Date of Service: February 09, 2021 Patient's clinical condition has continued to deteriorate this evening. Her lactic acid is now 11, and metabolic acidosis with pH 7.15. She is developing electrolyte abnormalities and is currently in renal failure and has shock liver Hemoglobin and coagulopathy did improve following transfusion. She is receiving additional 2 units cryo. She is on multiple vasopressors at high dose currently. Patient's son and daughter present to the bedside and patient's clinical status was discussed in detail. I expressed that given her acuity, CPR and ACLS measures in the event of cardiac arrest would likely be nonbeneficial. Patient's family did change CODE STATUS to no compressions/no shocks or ACLS measures in the event of cardiac arrest. She is currently in multisystem organ failure and prognosis is very poor. Patient's family would like to continue with medical management overnight and reevaluate her condition in the morning. CRITICAL CARE TIME - I have personally spent 30 minutes of critical care time in the direct management of this patient. This is a life/limb threatening event. This includes time spent evaluating patient, direct bedside care, chart review, placing orders, interpretation of diagnostic studies, discussion with consultants, patient, and family members, as well as other required patient management activities. This time is exclusive of all separately billable procedures, and teaching time and separate from and in addition to any other critical care service time. Coding Level of Care Code Critical Care poncho addt'l 30 min
[2021-02-09] MEDS ORDERED: MEROPENEM CONSULT ACTIVE PRN (22:18)
[2021-02-09] MEDS: propofoL 1,000 MG/100 ML VIAL IV SCH ×2 (22:54→22:56)
[2021-02-09] MEDS ORDERED: MEROPENEM 500 MG in SYRINGE 0 ML IV SCH (23:00)
[2021-02-09] MEDS ORDERED: PHENYLEPHRINE HCL 20 MG in DEXTROSE 5% 500 ML IV SCH (23:15)
[2021-02-10 00:45] LABS: Hemoglobin 9.2 g/dL (12.0-16.0); Mean Corpuscular Hemoglobin 28.3 pg (25-34); Mean Corpuscular Hgb Conc 31.7 g/dL (32-36); Mean Corpuscular Volume 89.2 fL (80-100); Mean Platelet Volume 9.5 fL (7.4-10.4); Nucleated RBC # (auto) 0.06 K/uL (0-0); Nucleated RBC % (auto) 0.2 %; Platelet Count 103 K/uL (130-400); RDW Coefficient of Variation 16.7 % (11.5-14.5); Red Blood Count 3.25 M/uL (4.2-5.4); White Blood Count 24.66 K/uL (4.8-10.8)
[2021-02-10] MEDS: MAX Conc 128mcg/mL; 32mg in 250mL IV SCH (00:46)
[2021-02-10 01:12] LABS: Albumin Level 2.1 gm/dl (3.4-5.0); BUN Creatinine Ratio 18.1 (10-20); Calcium 8.8 mg/dl (8.5-10.1); Creatinine Clr Calc Pharmacy 51.3 ml/min; Est GFR (Non-African American) 26.7 ml/min; Potassium 5.8 mmol/L (3.5-5.1)
[2021-02-10] MEDS: PHENYLEPHRINE HCL 80 MG in DEXTROSE 5% 500 ML IV SCH ×3 (01:26→04:55)
[2021-02-10] MEDS ORDERED: SODIUM CHLORIDE 0.9% 1000ML 1,000 ML IV ONE (01:34)
[2021-02-10 01:39] LABS: Albumin Globulin Ratio 0.7 (0.9-2); Bilirubin,Total 2.4 mg/dl (0.2-1); Globulin 2.9 gm/dl (2.5-4.0)
[2021-02-10] MEDS: INSULIN ASPART 100 UNITS/ML 3 ML PEN SC SCH ×2 (01:52→04:57)
[2021-02-10] MEDS: PANTOprazole 40 MG in DEXTROSE 5% 100 ML IV SCH ×2 (01:55→03:54)
[2021-02-10 03:30] LABS: INR 1.5 (0.9-1.1); Prothrombin Time 15.1 Seconds (9.0-12.0)
[2021-02-10] MEDS: propofoL 1,000 MG/100 ML VIAL IV SCH ×2 (03:54→03:55)
[2021-02-10] MEDS ORDERED: STAT IV Infusion **Titration per Protocol STA (04:44)
[2021-02-10] MEDS ORDERED: ONDANSETRON 4 MG OD TAB SL PRN (04:44)
[2021-02-10] MEDS ORDERED: LORazepam 0.5 MG/1 ML VIAL IV PRN (04:44)
[2021-02-10] MEDS ORDERED: ONDANSETRON INJ 2 MG/ML 2 ML VIAL IV PRN (04:44)
[2021-02-10] MEDS ORDERED: MoRPHine SULF/NSS 250 MG/250 ML BTL IV SCH (04:45)
--- NOTE | 2021-02-10 05:01 | Communication Note ---
Date of Service: February 10, 2021 Patient's clinical status has continued to deteriorate overnight. She is now on bicarb drip and 3 vasopressors and remains hypotensive. She was unresponsive to fluid bolus. Lactate continues to elevate and now at 14, hepatic and renal function continue to worsen as well. Patient systolics now in the 50s and I did explain to the family that this is likely nonsurvivable. Patient's wishes were further discussed and the patient's sister who was at the bedside stated that she had expressed to her in the past that she would not want aggressive annamaria sures. Patient's son who is also at the bedside, expressed wishes to make her comfortable. Per family wishes will transition to comfort care and palliatively extubate once family is ready. CRITICAL CARE TIME - I have personally spent 35 minutes of critical care time in the direct management of this patient. This is a life/limb threatening event. This includes time spent evaluating patient, direct bedside care, chart review, placing orders, interpretation of diagnostic studies, discussion with consultants, patient, and family members, as well as other required patient management activities. This time is exclusive of all separately billable procedures, and teaching time and separate from and in addition to any other critical care service time. Coding Level of Care Code Critical Care 1st 30-74 mins
--- NOTE | 2021-02-10 06:21 | Death Pronouncement Note ---
Date of Service February 10, 2021 PRONOUNCEMENT NOTE - Date: 02/10/2021 Time: 0610 I was contacted by nursing staff regarding the patients declining status and concerns for imminent demise. In short, patient was being treated for acute GI bleed, hypotension, and suspected colonic ischemia with septic shock. Patient became increasingly hypotensive overnight and was in multisystem organ failure. Family made decision to withdraw care this morning and she was palliatively extubated. She entered asystole rhythm on the monitor and was pronounced at 0610 by myself. Assessment: I presented to the patients room for evaluation. Upon assessment, the patient was found to be in a terminal state. No palpable pulses appreciated. No spontaneous breaths noted. Heart sounds were absent. Time of : 0610 as pronounced by myself. Family present at bedside. Appropriate response to grief appreciated. Condolences provided. Questions were addressed and emotional support was provided. Patients primary service was contacted and made aware of patient demise. Pronouncement section of the Certificate was filled out and signed by myself. Cause of : Primary -septic shock Secondary -acute GI bleed Contributing Causes of -multisystem organ failure, liver cirrhosis, morbid obesity Please feel free to contact me with any questions regarding the above-mentioned course. Pronouncement Note Admission Date Admission Date: February 09, 2021 Contributing Factors (1) Acute alteration in mental status: (2) Acute hypotension: (3) GI bleed: (4) Sepsis: (5) Hyperkalemia: (6) Acute blood loss anemia: (7) COPD (chronic obstructive pulmonary disease): (8) Diabetes mellitus, type 2: (9) Non-alcoholic cirrhosis: Additional Data Attending physician: James Vela MD Coding Level of Care Code None Diagnoses Acute alteration in mental status R41.82 Acute hypotension I95.9 GI bleed K92.2 Sepsis A41.9 Hyperkalemia E87.5 Acute blood loss anemia D62 COPD (chronic obstructive pulmonary disease) J44.9 Diabetes mellitus, type 2 E11.9 Non-alcoholic cirrhosis K74.60
--- NOTE | 2021-02-10 15:10 | Electrocardiogram Report ---
Test Reason : Blood Pressure : / mmHG Vent. Rate : 096 BPM Atrial Rate : 096 BPM P-R Int : 208 ms QRS Dur : 076 ms QT Int : 392 ms P-R-T Axes : -83 019 007 degrees QTc Int : 481 ms Poor data quality, interpretation may be adversely affected Normal sinus rhythm Low voltage QRS Poor R wave progression, consider anterior NH vs. lead placement vs. LVH Prolonged QT Abnormal ECG When compared with ECG of 02-FEB-2021 15:38, Significant artifact is now present Confirmed by Cristi Argueta ([id number]) on 02/10/2021 3:09:31 PM Referred By: REFERRED SELF Confirmed By:Cristi Argueta
--- NOTE | 2021-02-24 20:41 | Discharge Summary ---
Date of Service February 24, 2021 Admission HPI Per Admitting Provider This is a 60 y/o female with PMH of DM2, bronchiectasis, ILD, PAN on CPAP, cirrhosis due to [place], dyslipidemic, COPD, CKD3, recent DVT, hypothyroidism, and morbid obesity who was found unresponsive at home after a fall this morning and was apparently noted to have bright blood from rectum on the floor near her. History from the pt is unobtainable so the chart is extensively reviewed. Of note, pt was admitted to this facility 12/23-12/24/20 with melena and anemia. GI consulted and recommended scope but pt preferred to do as an outpatient. GI and case management attempted to reach patient multiple times to schedule with no response so this was not done. GI also recommended holding Coumadin, which anticoagulation clinic agreed with since pt had completed most of the recommended six month course for a DVT earlier this year, but it is unclear if this was done. Additional history was obtained from the pt's son because pt is currently unresponsive. Pt was seen in the ED a week ago for abdominal pain and SOB. Given solumedrol and a neb with improvement so discharged to home. Pt's son reports that pt was been declining over the past 2-3 days with progressive weakness, SOB, and GI distress. Has not been sleeping much. Last night, she was too weak to get into bed so son wanted to call 911 but pt refused to allow him. Finally, early this morning, pt again attempted to get into bed and instead slid on the floor. She was incontinent of bloody stool and finally agreed to allow son to call EMS. When EMS arrived, pt was awake but unresponsive. In the ED, she was noted to be hypotensive with an initial SBP of 51 and was hypothermic. She was intubated in the ED. Noted to be markedly anemic with concern for ongoing blood loss so blood transfusion with two units started emergently. Admission Exam (Per Admitting) Constitutional Constitutional: + ill appearing, + morbidly obese, + alt ered mental status and + mechanically ventilated ENMT: +ETT in place Respiratory: Auscultation: + diminished lung sounds and + rhonchi Cardiovascular: Rate/Rhythm: regular rate and regular rhythm Heart Sounds: + murmur Extremities: + edema (pitting edema to abdomen) Gastrointestinal (Abdomen): Inspection/Auscultation: + abdomen distended, normal bowel sounds and + significant pannus Skin: no jaundice Neurologic: sedated and intubated - grimaces to sternal rub Discharge Data Consultations 02/09/21 08:43 ED Decision to Admit Stat 02/09/21 10:17 Consult Gastroenterology Stat Consult Health And Wellness Coach Routine 02/10/21 04:45 Consult Palliative Care Routine Hospital Course (1) Acute alteration in mental status: Likely multifactorial due to hypotension, GI bleed, sepsis (2) Acute hypotension: Pressors started in the ED - management per critical care Intubated and sedated (3) GI bleed: Spoke with GI - appreciate their input. Too unstable to scope at this time - IV PPI gtt, IV octreotide due to hx of cirrhosis - Received two units of PRBCs in ED - INR 2.3 - given 2 units of FFP in the ED (4) Sepsis: Likely urinary source - blood and urine cultures pending. - Empiric Mirepenem started in the ED - will also cover for potential gut ischemia. Patient's clinical status has continued to deteriorate overnight while admitted. placed on bicarb drip and 3 vasopressors and remains hypotensive. She was unresponsive to fluid bolus. ICU team discussed with family and transitioned to comfort measures patient pronounced 02/10/21 (5) Acute blood loss anemia: per above (6) Non-alcoholic cirrhosis:
== END 2021-02-10 06:10 | disposition expired | DRG 871 ==
LOC: ED 06:44 → SUATTDRO 09:08 → 1E 09:08